=== PATIENT | female | born 1970 | race Caucasian/White ===

== ENCOUNTER 2017-07-06 09:09 | Outpatient (RCR) | payer OTHER, SELFPAY | END 2017-07-14 23:59 | LOC: NS 09:09 | PROVIDERS: Family Provider Family Medicine; PCP Family Medicine; Visit Provider Family Medicine | DX: E66.9 Obesity, unspecified (principal); Z68.31 Body mass index [BMI] 31.0-31.9, adult; Z71.3 Dietary counseling and surveillance | CPT/HCPCS: 97802 ==

== ENCOUNTER → 2017-10-09 07:19 | Outpatient (CLI) | payer OTHER, SELFPAY ==
--- NOTE | 2017-10-09 07:29 | MRI_ITS ---
STUDY: MRI LUMBAR SPINE WITHOUT CONTRAST REASON FOR EXAM: Female, 47 years old. Low back pain radiating to left leg TECHNIQUE: Standardized fat and water weighted pulse sequences were obtained in the sagittal and axial planes. COMPARISON: None FINDINGS: T12-L1: Normal endplates. Normal disc height, hydration and morphology. Normal bilateral facet joints. Normal central canal and bilateral lateral recesses. Normal bilateral intervertebral neural foramina. Normal lumbar lordosis. There is no substantial scoliosis. Normal conus medullaris that terminates at T12-L1 L1-2: Normal endplates. Normal disc height, hydration and morphology. Normal bilateral facet joints. Normal central canal and bilateral lateral recesses. Normal bilateral intervertebral neural foramina. L2-3: Normal endplates. Normal disc height, desiccation and minimal annular bulge. Normal bilateral facet joints. Normal central canal and bilateral lateral recesses. Normal bilateral intervertebral neural foramina. L3-4: Normal endplates. Narrowed disc space with desiccation of the disc and moderate annular bulge in association with small central disc extrusion with inferior migration of disc fragment. There is also left foraminal disc protrusion. Mild facet arthropathy greater on the left. Mild narrowing of the central canal. Mild to moderate right lateral recess and neuroforaminal stenosis with more severe narrowing on the left.. L4-5: Normal endplates. Narrowed disc space with desiccation of the disc and mild annular bulge.. Bilateral facet arthropathy and mild thickening of ligamenta flava greater on the left.. Normal central canal. Mild right lateral recess and neural foraminal encroachment with moderate narrowing on the left L5-S1: Normal endplates. Normal disc height, desiccation and minor bulging of the annulus with moderate central disc protrusion.. Bilateral facet arthropathy. Mild narrowing of the central canal. Normal bilateral lateral recesses. Normal bilateral intervertebral neural foramina. Normal visualized sacral ala. Normal visualized paraspinous soft tissue structures. MRI/Spine Lumbar (Routine) IMPRESSION: Moderate spondylosis. Spinal stenosis at L3-4 and L4-5 greater on the left secondary to disc disease and bony hypertrophy. Other findings as above Electronically Signed: Solo Rodas MD at 17:44 EDT , Service support ,
--- NOTE | 2017-10-09 08:05 | RAD_ITS ---
STUDY: X-RAY - CERVICAL SPINE REASON FOR EXAM: Female, 47 years old. Neck pain TECHNIQUE: 2 view(s) of the cervical spine were obtained. COMPARISON: None FINDINGS: Normal anterior atlantoaxial articulation. Normal odontoid process. Normal cervical lordosis. Normal vertebral bodies and endplates. Normal disc space heights. Normal visualized intervertebral neuroforamina. There is ossification of the nuchal ligament at the level of C4-5.. RAD/Cerv Spine 2 or 3 Views IMPRESSION: No evidence for acute fracture or other significant bony pathology. Electronically Signed: Solo Rodas MD at 0:51 EDT , Service support ,
== END ==
PROVIDERS: Family Provider Family Medicine; PCP Family Medicine; Visit Provider Anesthesiology Pain Medicine
DX: M54.9 Dorsalgia, unspecified (principal); M79.606 Pain in leg, unspecified
CPT/HCPCS: 72040; 72148

== ENCOUNTER → 2017-10-18 16:49 | Outpatient (CLI) | payer OTHER, SELFPAY ==
[2017-10-18 18:26] LABS: Amphetamine Urine VISTA NEGATIVE (<1000 ng/mL); Barbiturate Urine VISTA NEGATIVE (< 200 ng/mL); Benzodiazepine Urine VISTA NEGATIVE (< 200 ng/mL); Cocaine Urine VISTA NEGATIVE (< 300 ng/mL); Ecstacy Urine VISTA NEGATIVE (< 500 ng/mL); Methadone Urine VISTA NEGATIVE (< 300 ng/mL); PCP Urine VISTA NEGATIVE (< 25 ng/mL); THC Urine VISTA NEGATIVE (< 50 ng/mL); Vista UDS pH Range 6
== END ==
PROVIDERS: Family Provider Family Medicine; PCP Family Medicine; Visit Provider Anesthesiology Pain Medicine
DX: F11.20 Opioid dependence, uncomplicated (principal)
CPT/HCPCS: 80307

== ENCOUNTER → 2018-01-13 10:13 | Outpatient (CLI) | payer OTHER, SELFPAY ==
--- NOTE | 2018-01-13 10:16 | BI_ITS ---
MAMMOGRAPHY - BILATERAL SCREENING REASON FOR EXAM: Female, 47 years old. Routine annual screening examination. PERTINENT HISTORY: Non-contributory. History of bilateral breast implants. TECHNIQUE: Digital bilateral breast johnathan (3D mammographic acquisition) in the CC and MLO projections. 2-D mediolateral oblique (MLO) and craniocaudad (CC) views of both breasts were obtained. CAD: Full Field Digital Mammography with Computer Added Detection was performed. COMPARISON: Comparison is made with prior study dated June 01, 2016 and December 02, 2010. FINDINGS: Breast Composition: There are scattered areas of fibroglandular density. There are no dominant masses or suspicious calcifications. Stable appearance of the bilateral breast implants. No other significant abnormalities are identified. There has been no significant change since the prior study. BI/SCREENING MAMM (CAD), BILAT IMPRESSION: Stable bilateral screening mammogram. Yearly follow-up mammogram recommended. (A) ASSESSMENT CATEGORY: BIRADS Category 2: Benign. A letter regarding these results will be sent to the patient by the facility within 30 days. Approximately 10% of breast cancers are not detected by mammography. A normal mammogram should not delay biopsy of a clinically suspicious abnormality. [id number] Electronically Signed: Walt Gonsales MD at 14:06 EDT Tel [phone], Service support ,
== END ==
PROVIDERS: Family Provider Family Medicine; PCP Family Medicine; Visit Provider Obstetrics & Gynecology Gynecology
DX: Z12.31 Encounter for screening mammogram for malignant neoplasm of breast (principal)
CPT/HCPCS: 77063; 77067

== ENCOUNTER 2018-03-11 09:56 | Emergency (ER) | payer OTHER, SELFPAY ==
[2018-03-11 09:56] VITALS: BP 163/82; PULSE 60; RESP 18; TEMP 36.6; O2SAT 99; BMI 28.7
--- NOTE | 2018-03-11 10:12 | CT_ITS ---
STUDY: CT ABDOMEN AND PELVIS WITHOUT CONTRAST REASON FOR EXAM: Female, 47 years old. Left lower quadrant pain. Left flank pain. History of gastric bypass RADIATION DOSAGE (If Supplied By Facility): CTDIvol = ( 16.49 ) mGy, DLP = ( 930.86 ) mGycm TECHNIQUE: Transaxial images were obtained from the dome of the diaphragm to the symphysis pubis without oral contrast, and without intravenous contrast. Sagittal and coronal images were reconstructed. Individualized dose optimization techniques were used for this CT. COMPARISON: None. FINDINGS: The visualized lung bases are unremarkable. The visualized portions of the heart are within normal limits. There are bilateral breast implants. Normal liver. There are surgical clips in the gallbladder fossa consistent with a prior cholecystectomy. Normal spleen. Normal pancreas. Normal bilateral adrenal glands. Normal right kidney. Normal left kidney. No stones or hydronephrosis. Postoperative changes of the stomach and small intestine consistent with gastric bypass. Mild distention of small bowel loops adjacent to the postoperative change. Normal colon. The appendix is visualized and appears normal. Normal abdominal aorta. Normal inferior vena cava. Normal retroperitoneum. Normal urinary bladder. Normal visualized uterus. There is a small amount of free fluid in the pelvis. There are postoperative changes of the abdominal wall. There is dextroscoliosis with degenerative change of the spine. CT/Abdomen/Pelvis without Cont IMPRESSION: There is postoperative change including gastric bypass. Distention of small bowel loops adjacent to postoperative change with ileus versus partial obstruction. No stones or hydronephrosis. Electronically Signed: Uriel Amezquita MD at 10:57 EDT , Service support ,
--- NOTE | 2018-03-11 10:13 | ED.DCSUM_ITS ---
- ER Visit Summary Date of Service: 03/11/18 Chief Complaint: Left flank pain History of Present Illness: The patient is a 47 F with no primary care physician. She reports she has left flank pain that began 3 days ago. Pain came on suddenly and has been constant since that time. Is a sharp pain that radiates around the left side of her abdomen. Is 9 out of 10 at worst and 7-10 currently. Is worsened by nothing. She taken Aleve and ibuprofen without relief. She reports is been nausea and vomited 8-9 times. No blood or emesis. She is having 3-4 episodes of diarrhea per day. No blood in her stools or black tarry stools. Patient reports that she has frequent urination with small volumes. No hematuria.. Patient denies sick contacts. Has not been camping out of the country. No possible bad food exposure. Does not drink well water. No recent antibiotic use. Patient has a history of gastric bypass in 2001. No personal or family history of kidney stones. Physical Examination: Vitals: Stable. Afebrile. General: Well-nourished and well-developed. Head: Normocephalic atraumatic. Neck: Supple, no lymphadenopathy. No JVD. Nontender. Cardiovascular: Regular rate and rhythm. No murmurs. Respiratory: No respiratory distress. Clear to auscultation bilaterally. Abdominal: Soft, mild tenderness palpation in the left upper and left lower quadrants, nondistended, normal bowel sounds. No guarding, rebound, or peritoneal signs. Back: Mild left CVA tenderness. Extremities: Nontender, no edema. Skin: Normal color, no rash. Neurologic: Alert and oriented ?3. Cranial nerves II through XII are intact. Normal strength and sensation. Psych: Normal affect. Test Results: CBC is remarkable for platelets of 142, segmented neutrophils of 79, and lymphocytes of 13. Chem-7 is more for glucose 111. UA is remarkable for 10-25 white blood cells, leukocytes, ketones. There is 1+ bacteria. However, there are 5-10 epithelial cells. Clinical Impression(s) from Imaging Studies Abdomen/Pelvis CT 03/11/18 10:12 IMPRESSION: There is postoperative change including gastric bypass. Distention of small bowel loops adjacent to postoperative change with ileus versus partial obstruction. No stones or hydronephrosis. Electronically Signed: Uriel Amezquita MD at 10:57 EDT , Service support , Emergency Department Course and Treatment: Patient had an IV placed. She is given a liter normal saline. She was given morphine and Zofran IV. She is resting comfortably. I had a prolonged discussion the patient about her urinalysis. She is having frequency with small volumes. She was treated with Cipro here. Treatment Plan: Patient will be discharged with Cipro, 12 [place], and Zofran. Instructed to follow-up with Dr. Ruth, who is next illness for no doc, in 3-5 days if not improving. I also discussed the CT results with her and instructed her to follow-up with Dr. Dwyer, her surgeon at [facility]. Return to the emergency department for any worsening symptoms. Disposition: To home in improved and stable condition. Impression: 1. Left flank pain, uncertain cause. This note was generated with [employer] dictation software. It may contain incorrect words, spelling, and punctuation that were not noted in review of the chart prior to signing ED Disposition - Plan for ED Patient: Chief Complaint: Flank Pain Instructions: ED Flank Pain Uncertain Cause Prescriptions: Ondansetron [Zofran Odt] 4 mg PO Q8H PRN PRN #10 tablet PRN Reason: Nausea Hydrocodone/Acetaminophen [[place] 5-325 Tablet] 1 - 2 each PO 4X/DAY PRN PRN 3 Days #12 tablet PRN Reason: Pain Ciprofloxacin [Cipro] 500 mg PO BID #6 tablet Referrals: Xiomara Ruth MD [STAFF PHYSICIAN] - 3-5 Days if not improving
[2018-03-11] MEDS: 0.9% Normal Saline 1,000 ML 1000 ML IV (10:30)
[2018-03-11] MEDS: Ondansetron 4 MG/2 ML Vial IV (10:31)
[2018-03-11] MEDS: Morphine 4 MG/ML Syringe IV (10:31)
[2018-03-11 10:33] LABS: Absolute Lymphocyte Count 0.71 X10^3/ul (0.83-4.51); Absolute Neutrophil Count 4.4 X10^3/uL (2.0-7.7); Basophil# 0.02 X10^3/uL; Basophil% 0.4 % (0-1); Eosinophil# 0.01 X10^3/uL; Eosinophils% 0.2 % (0-5); Hematocrit 39.5 % (37-47); Hemoglobin 13.4 g/dl (12.0-15.0); Lymphocyte # 0.71 X10^3/ul (4.0); Lymphocyte % 12.9 % (19-41); Mean Corp Hgb Conc 33.9 g/gl (32-36); Mean Corpuscular Hgb 33.4 pg (27.0-32.0); Mean Corpuscular Volume 98.5 fL (81-99); Mean Platelet Vol. 10.2 fl (6.2-12.0); Monocyte# 0.38 X10^3/uL; Monocyte% 6.9 % (0-10); Neutrophil # 4.39 X10^3/uL (2.7-7.7); Neutrophil % 79.4 % (47-70); POSITIVE COUNT NO; POSITIVE DIFFERENTIAL NO; POSITIVE MORPHOLOGY NO; Platelet Count 142 K/mm3 (150-450); RBC Distribution Width CV 13.3 % (11.6-14.6); RBC Distribution Width SD 46.8 fl (35.1-43.9); Red Blood Count 4.01 M/mm3 (4.2-5.4); White Blood Count 5.5 K/mm3 (4.4-11.0)
[2018-03-11 10:38] LABS: Mucous, Urine 0 SEEN /hpf (<or=2+); Red Blood Cells-Urine 0 SEEN /hpf (0-5)
[2018-03-11 10:40] LABS: Color, Urine Yellow (Yellow); Glucose, Dipstick Normal (Normal); Ketone-Dipstick 50 mg/dl (Negative); Leukocyte Esterase-Dipstick 100 /ul (Negative); Nitrite-Dipstick Negative (Negative); Occult Blood-Urine Negative /ul (Negative); Protein-Dipstick 15 mg/dl (Negative); Urine Bilirubin Dipstick Negative (Negative); Urine Clarity Sl. Cloudy (Clear); Urine Urobilinogen 4 mg/dl (Normal); Urine pH 6.5 (5.0 - 8.0)
[2018-03-11 10:43] LABS: Anion Gap 8 (5-15); BUN 7 mg/dL (7-18); BUN/Creat Ratio 7.2 RATIO (10-20); Calcium,Total 8.8 mg/dL (8.5-10.1); Chloride 105 mmol/L (98-107); Creatinine, Serum 0.98 mg/dL (0.55-1.02); EST Glomerular Filtration Rate 65 mL/min (>60); Est Glom Filt Rate - Afr Amer 78 mL/min (>60); Estimated Creatinine Clearance 75.92 ml/min; Glucose 111 mg/dL (74-106); Potassium 3.7 mmol/L (3.5-5.1); Sodium Level 138 mmol/L (136-145)
[2018-03-11 10:55] LABS: Bacteria 1+ /hpf (None Seen); Squamous Epithelial Cells - UA 5-10 SEEN /hpf (5-10); White Blood Cells 10-25 SEEN /hpf (0-5)
[2018-03-11 11:22] VITALS: BP 163/88; PULSE 68; RESP 18; O2SAT 98
[2018-03-11] MEDS: Ciprofloxacin 500 MG Tablet PO (11:31)
== END 2018-03-11 11:41 | disposition home or self-care (01) ==
LOC: ED 10:18
PROVIDERS: Emergency Provider Emergency Medicine
DX: R10.9 Unspecified abdominal pain (principal); R51 Headache; R05 Cough; R19.7 Diarrhea, unspecified; R11.2 Nausea with vomiting, unspecified; Z98.84 Bariatric surgery status
CPT/HCPCS: 74176; 80048; 81001; 85025; 96361; 96374; 96375; 99283; J7030; A4216; J2405

== ENCOUNTER 2018-08-02 12:45 | Emergency (ER) | payer OTHER, SELFPAY ==
[2018-08-02 12:46] VITALS: BP 177/109; PULSE 104; RESP 18; TEMP 36.3; O2SAT 97; BMI 32.1
[2018-08-02] MEDS: 0.9% Normal Saline 1,000 ML 1000 ML IV (13:52)
[2018-08-02] MEDS: Ondansetron 4 MG/2 ML Vial IV (13:52)
[2018-08-02 13:55] LABS: Absolute Neutrophil Count 9.3 X10^3/uL (2.0-7.7); Basophil# 0.02 X10^3/uL; Basophil% 0.2 % (0-1); Hematocrit 41.3 % (37-47); Lymphocyte % 8.3 % (19-41); Mean Corp Hgb Conc 33.9 g/gl (32-36); Mean Corpuscular Hgb 34.3 pg (27.0-32.0); Mean Corpuscular Volume 101.2 fL (81-99); Mean Platelet Vol. 9.8 fl (6.2-12.0); Monocyte# 0.65 X10^3/uL; Neutrophil # 9.26 X10^3/uL (2.7-7.7); Neutrophil % 85.4 % (47-70); Platelet Count 190 K/mm3 (150-450); RBC Distribution Width CV 13.5 % (11.6-14.6); RBC Distribution Width SD 49.2 fl (35.1-43.9); Red Blood Count 4.08 M/mm3 (4.2-5.4); White Blood Count 10.8 K/mm3 (4.4-11.0)
[2018-08-02 13:58] LABS: POSITIVE COUNT NO; POSITIVE DIFFERENTIAL NO; POSITIVE MORPHOLOGY NO
[2018-08-02 14:09] LABS: ALB/GLOB Ratio 0.9 RATIO (0.9-2.4); AST(SGOT) 20 U/L (15-37); Alanine Aminotransfer ALT/SGPT 9 U/L (13-56); Albumin, Serum 3.5 g/dL (3.2-5.0); Alkaline Phosphatase 116 U/L (45-117); Anion Gap 13 (5-15); BUN 5 mg/dL (7-18); BUN/Creat Ratio 5.5 RATIO (10-20); Calcium,Total 8.2 mg/dL (8.5-10.1); Chloride 104 mmol/L (98-107); EST Glomerular Filtration Rate 70 mL/min (>60); Est Glom Filt Rate - Afr Amer 85 mL/min (>60); Estimated Creatinine Clearance 81.77 ml/min; Globulin 3.7 g/dL (2.2-4.2); Glucose 86 mg/dL (74-106); Potassium 3.4 mmol/L (3.5-5.1); Protein, Total 7.2 g/dL (6.4-8.2); Sodium Level 139 mmol/L (136-145)
[2018-08-02] MEDS: LORazepam 2 MG/ML Syringe 0.5 MG IV (14:16)
[2018-08-02 15:46] VITALS: BP 158/92; O2SAT 99
[2018-08-02] MEDS: LORazepam 0.5 MG Tablet PO (15:51)
--- NOTE | 2018-08-02 16:23 | ED.DCSUM_ITS ---
- ER Visit Summary Date of Service: 08/02/18 Chief Complaint: Abdominal pain predominantly right upper quadrant with nausea, vomiting diarrhea. History of Present Illness: The patient is a 48 F She status post cholecystectomy within the last 10 years. She denies food intolerance. She denies history of pancreatitis. She denies cough, shortness of breath or difficulty breathing. Denies pleuritic pain. She has no history of PE or DVT. She denies leg pain, swelling discoloration. She has vomited a few times. She is concerned because her stool is dark and oily. There is no history of Pseudomonas in her colitis. No risk factors for infectious diarrhea. She has not eaten anything that tasted unusual and no other 1 in the household is ill. She does complain of thirst and dry mouth. She also reports slight cough. Pain is worse with cough, sneezing and movement. There is no history of trauma. She has not noted any rash or lesions. Physical Examination: Vital signs noted and blood pressure is slightly low at 177/109. Heart rate is 104. Head is atraumatic normocephalic. Pupils are equal round reactive. Extraocular muscles are intact. TMs are pearly white with landmarks noted. Nares patent with no drainage. Posterior pharynx without erythema or exudate. Uvula is midline. There is no dysphonia or dysphasia. Trachea is midline. There is no stridor with auscultation of the neck. Tongue and mucosa are dry. Heart is rapid and regular without murmur, gallop or rub. S1 and S2 are normal. Lungs are clear to auscultation with good movement of air bilaterally. Abdomen is remarkable for mild diffuse tenderness. Most discomfort is in the anterior to posterior axillary line near the right costal margin. There is no hepatospleno megaly. Bowel sounds are increased. There is no evidence of umbilical or inguinal hernia. Rectal exam is remarkable for areas of excoriation. There is prominent anal veins but no discrete obvious hemorrhoid and there is no palpable mass. Patient has not had any diarrhea during her stay here. Rectal exam reveals brown watery material. Because of the areas of excoriation this was not tested for blood. Neuro exam is nonfocal Test Results: CBC is unremarkable. Basic metabolic panel is unremarkable. Potassium is 3.4. ALT, AST alk phos and bilirubin are normal. Emergency Department Course and Treatment: Patient was treated with IV fluids, I V Ativan. Her anxiety improved. She is given p.o. Ativan. Treatment Plan: Imodium for diarrhea. She was referred to Dr. Andi Sloan since she does not have a primary care physician in the area. Disposition: Discharge to home with spouse in stable condition Impression: 1. Abdominal pain with nausea, vomiting diarrhea 2. Anxiety unknown cause This note was generated with [employer] dictation software. It may contain incorrect words, spelling, and punctuation that were not noted in review of the chart prior to signing ED Disposition - Plan for ED Patient: Disposition: Home or Assisted Living Instructions: ED Vomiting Diarrhea Nonspecific Ad Referrals: Care Physician,No Primary [Primary Care Provider] - Andi Sloan MD [STAFF PHYSICIAN] - 5-7 Days
== END 2018-08-02 16:33 | disposition home or self-care (01) ==
PROVIDERS: Emergency Provider Emergency Medicine
DX: R11.2 Nausea with vomiting, unspecified (principal); R10.9 Unspecified abdominal pain; R19.7 Diarrhea, unspecified; F41.9 Anxiety disorder, unspecified; Z90.49 Acquired absence of other specified parts of digestive tract
CPT/HCPCS: 80053; 85025; 96361; 96374; 96375; 99282; J7030; J2405

== ENCOUNTER 2018-08-09 09:21 | Observation (INO) | payer OTHER, SELFPAY ==
[2018-08-09 09:22] VITALS: BP 161/95; PULSE 85; RESP 18; TEMP 36.6; O2SAT 100; BMI 30.9
--- NOTE | 2018-08-09 09:49 | CT_ITS ---
STUDY: CT ABDOMEN AND PELVIS WITH CONTRAST REASON FOR EXAM: Female, 48 years old. Abdominal pain. RADIATION DOSAGE (If Supplied By Facility): CTDIvol = ( 16.10 ) mGy, DLP = ( 1149.58 ) mGycm TECHNIQUE: Transaxial images were obtained from the dome of the diaphragm to the symphysis pubis without oral contrast. Isovue 300 100ML IV was administered. Sagittal and coronal images were reconstructed. Individualized dose optimization techniques were used for this CT. COMPARISON: Comparison is made with prior study March 11, 2018. FINDINGS: There is evidence of bilateral breast implants. The visualized lung bases are unremarkable. The visualized portions of the heart are within normal limits. Normal liver. There are surgical clips in the gallbladder fossa consistent with a prior cholecystectomy. Normal spleen. Normal pancreas. Normal bilateral adrenal glands. Normal right kidney. Normal left kidney. The patient is status post partial gastrectomy and anastomosis for gastric bypass surgery. Normal small intestine. There are scattered colonic diverticula consistent with diverticulosis. The appendix is visualized and appears normal. Normal abdominal aorta. Normal inferior vena cava. Normal retroperitoneum. Normal urinary bladder. A 2.1 cm follicle is seen in the left ovary. There is evidence of prior anterior abdominal wall surgery. There are diffuse degenerative changes of the visualized lumbar spine. CT/Abdomen/Pelvis W IV Cont ONLY IMPRESSION: Status post gastric bypass surgery. Small follicle in the left ovary. Postoperative anterior abdominal wall changes. Electronically Signed: Walt Gonsales, at 11:23 EST , Service support ,
[2018-08-09 10:38] LABS: Absolute Lymphocyte Count 0.86 X10^3/ul (0.83-4.51); Absolute Neutrophil Count 2.3 X10^3/uL (2.0-7.7); Basophil# 0.01 X10^3/uL; Basophil% 0.3 % (0-1); Eosinophil# 0.01 X10^3/uL; Eosinophils% 0.3 % (0-5); Hemoglobin 12.9 g/dl (12.0-15.0); Lymphocyte # 0.86 X10^3/ul (4.0); Lymphocyte % 24.7 % (19-41); Mean Corp Hgb Conc 33.1 g/gl (32-36); Mean Corpuscular Hgb 34.4 pg (27.0-32.0); Mean Platelet Vol. 10.3 fl (6.2-12.0); Monocyte# 0.34 X10^3/uL; Monocyte% 9.8 % (0-10); Neutrophil # 2.25 X10^3/uL (2.7-7.7); Neutrophil % 64.6 % (47-70); Platelet Count 111 K/mm3 (150-450); RBC Distribution Width CV 12.8 % (11.6-14.6); RBC Distribution Width SD 47.2 fl (35.1-43.9); Red Blood Count 3.75 M/mm3 (4.2-5.4); White Blood Count 3.5 K/mm3 (4.4-11.0)
[2018-08-09] MEDS: 0.9% Normal Saline 1,000 ML 1000 ML IV (10:39)
[2018-08-09 10:40] LABS: POSITIVE COUNT NO; POSITIVE DIFFERENTIAL NO; POSITIVE MORPHOLOGY NO
[2018-08-09] MEDS: Ketorolac 30 MG/ML Syringe IV (10:40)
[2018-08-09 10:59] LABS: ALB/GLOB Ratio 0.9 RATIO (0.9-2.4); AST(SGOT) 14 U/L (15-37); Alanine Aminotransfer ALT/SGPT 9 U/L (13-56); Alkaline Phosphatase 85 U/L (45-117); Anion Gap 9 (5-15); BUN 9 mg/dL (7-18); BUN/Creat Ratio 8.6 RATIO (10-20); Calcium,Total 8.4 mg/dL (8.5-10.1); Chloride 105 mmol/L (98-107); Creatinine, Serum 1.05 mg/dL (0.55-1.02); EST Glomerular Filtration Rate 59 mL/min (>60); Est Glom Filt Rate - Afr Amer 72 mL/min (>60); Estimated Creatinine Clearance 70.09 ml/min; Globulin 3.5 g/dL (2.2-4.2); Glucose 102 mg/dL (74-106); Lipase 955 U/L (73-393); Potassium 4.1 mmol/L (3.5-5.1); Protein, Total 6.5 g/dL (6.4-8.2); Sodium Level 141 mmol/L (136-145)
[2018-08-09] MEDS: Morphine 4 MG/ML Syringe IV (11:31)
--- NOTE | 2018-08-09 13:09 | ED.DCSUM_ITS ---
- ER Visit Summary Date of Service: 08/09/18 Chief Complaint: Abdominal pain History of Present Illness: The patient is a 48 F who states that last Wednesday she was seen in the emergency department with vomiting diarrhea. She saw her primary care physician on Wednesday and had blood work done. Lipase returned at 366 because she is still having abdominal pain was sent to the emergency room today. She last vomited about 2 days ago. Her diarrhea is better but it is still loose. She describes the pain as sharp stabbing on the sides. She has had gastric bypass 2001 and cholecystectomy in 2007. Physical Examination: Afebrile vital signs are stable Gen: Well-nourished well-developed Head: Normocephalic atraumatic Eyes: Perrl EOMI ENT: TMs clear no rhinorrhea moist mucous membranes Neck: Supple no lymphadenopathy no JVD nontender CVS: Regular rate rhythm no murmurs normal S1-S2 Respiratory: No distress clear to auscultation bilaterally chest nontender Abdomen: Soft patient has reproducible tenderness to palpation over the oblique musculature in the lower ribs laterally. Nondistended normal bowel sounds no masses Back: Nontender Extremity: Nontender no edema Skin: Normal color no rash Neuro: alert orientated ?3 CN II-XII intact normal strength sensation reflexes gait cerebellar Psych: Normal affect normal mood Test Results: Lipase is elevated here at 955. White count 3.5. Creatinine 1.05. CT of the abdomen pelvis does not show any peripancreatic stranding mass or pseudocyst. Emergency Department Course and Treatment: Patient received IV fluids Toradol and later morphine. I suspect this is all viral in nature. I am concerned about her persistently elevated lipase over the past several days. Her abdominal pain seems to be more musculoskeletal most likely from vomiting. Patient I think would benefit from bowel rest and IV fluids. We can recheck the lipase in the morning. Impression: 1. Gastroenteritis 2. Pancreatitis 3. Abdominal wall pain This note was generated with [employer] dictation software. It may contain incorrect words, spelling, and punctuation that were not noted in review of the chart prior to signing ED Disposition - Plan for ED Patient: Disposition: [facility]
--- NOTE | 2018-08-09 13:14 | NURSING ---
MED SURG PANCREATITIS
--- NOTE | 2018-08-09 13:18 | HP.PCM_ITS ---
Problem List (1) Acute pancreatitis Status: Acute (2) Gastric bypass surgery Status: Chronic (3) History of cholecystectomy Status: Chronic History of Present Illness Date of Admission: 08/09/18 Chief Complaint: Abdominal pain for about 1 week The patient is a 48 year old F with history of gastric bypass surgery in 2001 and cholecystectomy in 2007 came to ED with abdominal pain for 1 week. Earlier patient came to ER on 08/02/18 for right upper quadrant abdominal pain with nausea vomiting and diarrhea was sent home. Initially abdominal pain was intermittent and now it is constant for last 1 day and does not change with position. Patient also had diarrhea, loose bowel movement for 1 week and which is getting more semisolid now. Denies vomiting. Had subjective fever with chills about 2-3 days ago but denies flulike symptoms. Denies lower urinary tract symptoms including frequency, urgency or burning micturition. Denies GI bleed. In ED, lipase is 955. WBC count 3.5 thousand, platelet count 111,000; decreased from 10.8 thousand and 1 90,000 from 08/[address] was done and it mainly shows postoperative surgical changes otherwise no new findings. Pancreas reported normal Past Medical History Past Medical History (Chronic Problems): Chronic Problems Gastric bypass surgery (Chronic) History of cholecystectomy (Chronic) Allergies diazoxide Allergy (Verified 08/09/18 09:24) Hives Home Medications: Ambulatory Orders Medication Instructions Recorded Norethindrone-E.estradiol-Iron 1 each PO DAILY 03/11/18 [Mibelas 24 Fe Chewable Tablet] Multivitamin [Multiple Vitamins] 1 each PO DAILY 08/09/18 Smoking Status: Never smoker - *Family History Paternal History Items: No pertinent history - No history of pancreatitis in parents. Review of Systems Constitutional: Reports: Chills, Fever, Weakness HEENT: Denies: Head Aches, Sinus Congestion, Sinus Drainage Cardiovascular: Denies: Chest Pain, Palpitations Respiratory: Denies: Cough, Shortness of breath at rest, Sputum production Gastrointestinal: Reports: Abdominal Pain, Diarrhea. Denies: Nausea, Vomiting Genitourinary: Denies: Dysuria, Frequency, Hematuria, Hesitancy, Incontinence, Urgency Gynecological: Reports: Vaginal bleeding - Post menopausal bleeding for about 1 month. It is intermittent for about 2-3 days. Sent records had menopause 15 years ago. Follows [employer] and is on contraceptive pills Musculoskeletal: Denies: Joint Pain, Joint Tenderness Skin: Denies: Rash, Wounds Neurological: Denies: Balance problems, Focal weakness, Numbness, Tingling Psychiatric: Denies: Anxiety, Depression, Homicidal Ideations, Suicidal Ideations Hematologic/ Lymphatic: Denies: Easy Bruising, Easy Bleeding VTE Information - Inpt Only VTE Present on Admission: No VTE Pharm Prophylaxis ordered?: Yes Patient Problems: Active and Suspected Problems Acute pancreatitis (Acute) - Physical Exam General: Alert, Oriented x3, Cooperative HEENT: Atraumatic, PERRLA, EOMI, Normocephalic Neck: Supple, No JVD, Negative Carotid Bruits Lungs: Clear to auscultation, Normal air movement, No rhonchi, No wheeze, No rales Cardiovascular: Regular rate, Normal S1, Normal S2, No murmurs Abdomen: Bowel Sounds Present, Soft, Non-Distended, Tender - Tenderness present on epigastrium and right upper quadrant. No palpable mass. No guarding/rigidity Extremities: No edema, Capillary Refill Less than 3 Seconds Skin: No rashes, No breakdown Musculoskeletal: No Tenderness to Palpation of Joints or Extremities Neurological: Cranial nerves II-XII grossly intact Psych/Mental Status: Normal Affect, Appropriate Vital Signs Temp Pulse Resp BP Pulse Ox 98 F 85 18 161/95 H 100 08/09/18 09:22 08/09/18 09:22 08/09/18 09:22 08/09/18 09:22 08/09/18 09:22 Oxygen Delivery Method Room Air Weight: 216 lb Body Mass Index (BMI) 30.9 Laboratory Tests Past 24 Hrs 08/09/18 08/09/18 10:30 10:30 WBC 3.5 L RBC 3.75 L Hgb 12.9 Hct 39.0 MCV 104.0 H MCH 34.4 H MCHC 33.1 RDW 12.8 RDW Differential 47.2 H Plt Count 111 L MPV 10.3 Immature Gran % (Auto) 0.300 Neut % (Auto) 64.6 Lymph % (Auto) 24.7 [place] % (Auto) 9.8 Eos % (Auto) 0.3 Baso % (Auto) 0.3 Absolute Neuts (auto) 2.3 Absolute Lymphs (auto) 0.86 Total Counted Not Reportable Sodium 141 Potassium 4.1 Chloride 105 Carbon Dioxide 27.0 Anion Gap 9 BUN 9 Creatinine 1.05 H Estim Creat Clear Calc 70.09 Est GFR (MDRD) Af Amer 72 Est GFR (MDRD) Non-Af 59 L BUN/Creatinine Ratio 8.6 L Glucose 102 Calcium 8.4 L Total Bilirubin 0.50 AST 14 L ALT 9 L Alkaline Phosphatase 85 Total Protein 6.5 Albumin 3.0 L Globulin 3.5 Albumin/Globulin Ratio 0.9 Lipase 955 H Assessment/Plan All Active Problems Acute pancreatitis (Acute) The patient is a 48 year old F with history of gastric bypass surgery in 2001 and cholecystectomy in 2007 came to ED with abdominal pain for 1 week. Earlier patient came to ER on 08/02/18 for right upper quadrant abdominal pain with nausea vomiting and diarrhea was sent home. Initially abdominal pain was intermittent and now it is constant for last 1 day and does not change with position. Patient also had diarrhea, loose bowel movement for 1 week and which is getting more semisolid now. Denies vomiting. Had subjective fever with chills about 2-3 days ago but denies flulike symptoms. Denies lower urinary tract symptoms including frequency, urgency or burning micturition. Denies GI bleed. In ED, lipase is 955. WBC count 3.5 thousand, platelet count 111,000; decreased from 10.8 thousand and 1 90,000 from 08/[address] was done and it mainly shows postoperative surgical changes otherwise no new findings. Pancreas reported normal. 1. Acute pancreatitis, etiology unclear: Patient thinks he had mild pancreatitis in the past and is spontaneously resolved without seeking medical care. Patient is being admitted on MedSurg floor. IV fluid normal saline. N.p.o. Monitor intake and output and abdominal pain. LFTs are within normal limit. 2. Postmenopausal bleeding on contraceptive pills. Patient follows [employer]. Continue contraceptive pill. Monitor CBC. 3. History of morbid obesity status post gastric bypass surgery and cholecystectomy long time ago: Stable. 4. DVT prophylaxis: On Lovenox 40mg subcu daily. Discontinue if platelet count drops less than 50,000 or hemoglobin less than 8 g%. Clinical Impression(s) from Imaging Studies Abdomen/Pelvis CT 08/09/18 09:49 IMPRESSION: Status post gastric bypass surgery. Small follicle in the left ovary. Postoperative anterior abdominal wall changes. Code Visit Inpatient E&M: 17333 Init Hosp L3
[2018-08-09 13:20] VITALS: BP 157/89; PULSE 69; RESP 16; O2SAT 100
[2018-08-09] MEDS: 0.9% Normal Saline 1,000 ML 250 ML IV (13:20)
--- NOTE | 2018-08-09 14:09 | CASEMGMT ---
RN CM Assessment Introduced role of RN CM to patient and Charbel at bedside. Patient is alert, oriented and able to participate in RN CM Assessment. Care providers, pharmacy, and demographics verified. Presentation: Admitted for Acute Pancreatitis. CC: Abd pain x1 week. Re-admit: No. Was seen in ER on 08/02/18 for Abd pain, N/V/D and Dc'd with referral to Dr Andi Sloan. PCP: Dr Louis Hernandez Specialists: None Preferred Pharmacy: [facility] Insurance: MMO Prescription Benefit: Yes LNOK: Charbel Montano Living Arrangements: Works for [employer]. Lives wuth in a [employer] Home. Independent with ambulation and ADL's. Transportation: Patient drives, Charbel to possible drive on [place] or a friend. DME: None. Preference through [employer]. HHC: Denies past, No preference on Agency. SNF: Denies past, no preference on facility. DC PLAN: Home with , no anticipated needs. Rocael Pickering RNCM
[2018-08-09 14:28] VITALS: BP 151/87; PULSE 67; RESP 16; TEMP 36.7; O2SAT 100; BMI 30.9; BMI 31.0
[2018-08-09] MEDS: Metoclopramide 10 MG/2 ML Vial 5 MG IV (15:10)
[2018-08-09] MEDS: 0.9% Normal Saline 1,000 ML 150 ML IV ×2 (16:26→19:18)
[2018-08-09] MEDS: Morphine 2 MG/ML Syringe IV ×2 (16:26→21:46)
[2018-08-09] MEDS: Enoxaparin 40 MG/0.4 ML Syringe SC (16:26)
[2018-08-09] MEDS: oxyCODONE 5 MG Tablet PO (19:18)
[2018-08-09] MEDS: Ondansetron 4 MG/2 ML Vial IV (19:19)
[2018-08-09 19:44] VITALS: BP 150/91; PULSE 78; RESP 16; TEMP 36.6; O2SAT 99
[2018-08-09] MEDS: Zolpidem Tartrate 5 MG Tablet PO (23:06)
[2018-08-09 23:15] VITALS: BP 127/86; PULSE 68; RESP 16; TEMP 36.6; O2SAT 98
[2018-08-10] MEDS: 0.9% Normal Saline 1,000 ML 150 ML IV ×3 (03:07→17:24)
[2018-08-10] MEDS: Morphine 2 MG/ML Syringe IV ×3 (03:07→22:21)
[2018-08-10 03:10] VITALS: BP 149/99; PULSE 62; RESP 16; TEMP 36.6; O2SAT 99
[2018-08-10 06:11] LABS: Absolute Lymphocyte Count 1.13 X10^3/ul (0.83-4.51); Absolute Neutrophil Count 1.4 X10^3/uL (2.0-7.7); Basophil# 0.01 X10^3/uL; Basophil% 0.3 % (0-1); Eosinophil# 0.04 X10^3/uL; Eosinophils% 1.4 % (0-5); Hematocrit 33.9 % (37-47); Hemoglobin 11.1 g/dl (12.0-15.0); Lymphocyte # 1.13 X10^3/ul (4.0); Lymphocyte % 39.4 % (19-41); Mean Corp Hgb Conc 32.7 g/gl (32-36); Mean Corpuscular Hgb 34.4 pg (27.0-32.0); Mean Platelet Vol. 10.3 fl (6.2-12.0); Monocyte# 0.33 X10^3/uL; Monocyte% 11.5 % (0-10); Neutrophil # 1.36 X10^3/uL (2.7-7.7); Neutrophil % 47.4 % (47-70); Platelet Count 79 K/mm3 (150-450); RBC Distribution Width CV 12.3 % (11.6-14.6); RBC Distribution Width SD 45.3 fl (35.1-43.9); Red Blood Count 3.23 M/mm3 (4.2-5.4); White Blood Count 2.9 K/mm3 (4.4-11.0)
[2018-08-10 06:16] LABS: POSITIVE COUNT NO; POSITIVE DIFFERENTIAL NO; POSITIVE MORPHOLOGY NO
[2018-08-10 06:27] LABS: AST(SGOT) 17 U/L (15-37); Alanine Aminotransfer ALT/SGPT 9 U/L (13-56); Albumin, Serum 2.5 g/dL (3.2-5.0); Alkaline Phosphatase 69 U/L (45-117); Anion Gap 8 (5-15); BUN 6 mg/dL (7-18); BUN/Creat Ratio 7.9 RATIO (10-20); Bilirubin, Direct 0.17 mg/dL (0.00-0.30); Calcium,Total 7.9 mg/dL (8.5-10.1); Chloride 112 mmol/L (98-107); Creatinine, Serum 0.76 mg/dL (0.55-1.02); EST Glomerular Filtration Rate 86 mL/min (>60); Est Glom Filt Rate - Afr Amer 104 mL/min (>60); Estimated Creatinine Clearance 96.83 ml/min; Globulin 2.7 g/dL (2.2-4.2); Glucose 82 mg/dL (74-106); Lipase 422 U/L (73-393); Protein, Total 5.2 g/dL (6.4-8.2); Sodium Level 144 mmol/L (136-145)
[2018-08-10 08:17] VITALS: BP 160/98; PULSE 68; RESP 18; TEMP 36.7; O2SAT 100
[2018-08-10] MEDS: Ondansetron 4 MG/2 ML Vial IV (08:19)
[2018-08-10] MEDS: 0.9% NaCl Peripheral Flush Adult/Peds IV (08:20)
[2018-08-10] MEDS: oxyCODONE 5 MG Tablet PO ×3 (09:54→19:45)
[2018-08-10] MEDS: Enoxaparin 40 MG/0.4 ML Syringe SC (09:58)
--- NOTE | 2018-08-10 10:46 | US_ITS ---
STUDY: ABDOMINAL ULTRASOUND - RIGHT UPPER QUADRANT REASON FOR VISIT: Female, 48 years old. Acute pancreatitis with abnormal labs TECHNIQUE: Ultrasound evaluation of the right upper quadrant was performed with real-time and static avalos-scale imaging. TECHNICAL QUALITY: Adequate. COMPARISON: CT abdomen and pelvis 08/09/2018 and 03/11/2018. FINDINGS: Liver: The liver measures 14.9 cm. There is normal echogenicity of the liver. The bile ducts are within normal limits. There is hepatic color flow. The direction of portal flow is hepatopetal. There is no demonstrated mass lesion. Gallbladder: Cholecystectomy Common Bile Duct (C.B.D.): The common bile duct measures 3.2 mm. Pancreas: Normal size of the head, body and tail of the pancreas. There is normal echogenicity of the pancreas. There is no demonstrated pancreatic mass or cyst. Right Kidney: Normal size of the right kidney. The right kidney measures 9.2 cm. Normal renal cortex. The right cortex measures 1.5 cm. There is no demonstrated renal mass or cyst. There is no right hydronephrosis. US/Abdomen Limited IMPRESSION: No acute sonographic abnormality. No sonographic evidence of acute pancreatitis. On the CT scan performed 08/09/2017 there were no features of acute pancreatitis. The common bile duct was mildly ectatic up to 8 mm. The common bile duct terminated somewhat bluntly just proximal to the sphincter. There is minimal intrahepatic biliary ductal ectasia. There is no apparent pancreatic ductal ectasia. Consider the possibility of occult choledocholithiasis. Follow-up MRCP may be appropriate. Electronically Signed: Kameron Alexis MD at 14:55 EST Tel , Service support ,
--- NOTE | 2018-08-10 11:36 | PCM.PN.HOSP ---
Patient Problems: Active and Suspected Problems Acute pancreatitis (Acute) Subjective: Patient is still having abdominal pain mainly epigastrium and right upper quadrant. No fever or chills. No tachycardia. No tachypnea/hypoxia. Vitals/I&O's: Vital Signs Temp Pulse Resp BP Pulse Ox 98.0 F 68 18 160/98 H 100 08/10/18 08:17 08/10/18 08:17 08/10/18 08:17 08/10/18 08:17 08/10/18 08:17 Oxygen Delivery Method Room Air Weight: 216 lb Body Mass Index (BMI) 30.9 Intake and Output for Last 24 Hours 08/08/18 08/09/18 08/10/18 23:59 23:59 23:59 Intake Total 1358 / 1358 923 / 923 Balance 1358 / 1358 923 / 923 General: Alert, Oriented x3, Cooperative HEENT: Atraumatic, PERRLA, EOMI, Normocephalic Neck: Supple, No JVD, Negative Carotid Bruits Lungs: Clear to auscultation, Normal air movement, No rhonchi, No wheeze, No rales Cardiovascular: Regular rate, Regular Rhythm, Normal S1, Normal S2, No murmurs Abdomen: Bowel Sounds Present, Soft, Tender - Tenderness present at epigastrium and right upper quadrant. No hepatomegaly. No palpable mass. Extremities: No edema, Capillary Refill Less than 3 Seconds Skin: No rashes, No breakdown Musculoskeletal: No Tenderness to Palpation of Joints or Extremities Neurological: Cranial nerves II-XII grossly intact Psych/Mental Status: Normal Affect, Appropriate Laboratory Results 08/10/18 05:40: WBC 2.9 L, RBC 3.23 L, Hgb 11.1 L, Hct 33.9 L, MCV 105.0 H, MCH 34.4 H, MCHC 32.7, RDW 12.3, RDW Differential 45.3 H, Plt Count 79 L, MPV 10.3, Immature Gran % (Auto) 0.000, Neut % (Auto) 47.4, Lymph % (Auto) 39.4, [place] % (Auto) 11.5 H, Eos % (Auto) 1.4, Baso % (Auto) 0.3, Absolute Neuts (auto) 1.4 L, Absolute Lymphs (auto) 1.13, Total Counted Not Reportable 08/10/18 05:40: Sodium 144, Potassium 4.0, Chloride 112 H, Carbon Dioxide 24.0, Anion Gap 8, BUN 6 L, Creatinine 0.76, Estim Creat Clear Calc 96.83, Est GFR (MDRD) Af Amer 104, Est GFR (MDRD) Non-Af 86, BUN/Creatinine Ratio 7.9 L, Glucose 82, Calcium 7.9 L, Total Bilirubin 0.40, Direct Bilirubin 0.17, AST 17, ALT 9 L, Alkaline Phosphatase 69, Total Protein 5.2 L, Albumin 2.5 L, Globulin 2.7, Lipase 422 H Current Medications Acetaminophen (Tylenol) 650 mg PO Q6H PRN PRN PRN Reason: Mild Pain (scale 0-3)/T>100.7 Bisacodyl (Dulcolax) 10 mg RECTAL DAILY PRN PRN PRN Reason: Constipation Docusate Sodium (Colace) 200 mg PO BID PRN PRN PRN Reason: Constipation Enoxaparin Sodium (Lovenox) 40 mg SC DAILY [facility] Last Admin: 08/10/18 09:58 Dose: 40 mg Sodium Chloride () 1,000 mls @ 150 mls/hr IV .Q6H40M [facility] Last Admin: 08/10/18 09:55 Dose: 150 mls/hr Metoclopramide HCl (Reglan) 5 mg IV Q6H PRN PRN Reason: NAUSEA/VOMITING Last Admin: 08/09/18 15:10 Dose: 5 mg Morphine Sulfate () 2 mg IV Q3H PRN PRN PRN Reason: Severe Pain (pain scale 6-10) Last Admin: 08/10/18 08:19 Dose: 2 mg Non-Formulary Medication (Norethindrone-E.Estradiol-Iron [Mibelas 24 Fe Chewable Tablet]) 1 each PO DAILY [facility] Ondansetron HCl (Zofran) 4 mg IV Q6H PRN PRN PRN Reason: NAUSEA Last Admin: 08/10/18 08:19 Dose: 4 mg Oxycodone HCl (Oxyir) 5 mg PO Q4H PRN PRN PRN Reason: Moderate Pain (pain scale 4-5) Last Admin: 08/10/18 09:54 Dose: 5 mg Sodium Chloride () 5 - 15 ml IV UD PRN PRN Reason: SALINE FLUSH Last Admin: 08/10/18 08:20 Dose: 10 ml Zolpidem Tartrate (Ambien (Generic)) 5 mg PO QHS PRN PRN PRN Reason: INSOMNIA Last Admin: 08/09/18 23:06 Dose: 5 mg Medical Necessity - Tobacco Use Smoking Status: Never smoker Tobacco Use: Non-smoker, Secondhand Assessment/Plan All Active Problems Acute pancreatitis (Acute) The patient is a 48 year old F with history of gastric bypass surgery in 2001 and cholecystectomy in 2007 came to ED with abdominal pain for 1 week. Earlier patient came to ER on 08/02/18 for right upper quadrant abdominal pain with nausea vomiting and diarrhea was sent home. Initially abdominal pain was intermittent and now it is constant for last 1 day and does not change with position. Patient also had diarrhea, loose bowel movement for 1 week and which is getting more semisolid now. Denies vomiting. Had subjective fever with chills about 2-3 days ago but denies flulike symptoms. Denies lower urinary tract symptoms including frequency, urgency or burning micturition. Denies GI bleed. In ED, lipase is 955. WBC count 3.5 thousand, platelet count 111,000; decreased from 10.8 thousand and 1 90,000 from 08/[address] was done and it mainly shows postoperative surgical changes otherwise no new findings. Pancreas reported normal. 1. Acute pancreatitis, etiology unclear: Patient thinks he had mild pancreatitis in the past and is spontaneously resolved without seeking medical care. [facility] IV fluid normal saline. Right upper quadrant sonogram ordered. Serum lipase improved. LFT within normal limit. Monitor intake and output and abdominal pain. Start clear liquid after ultrasound. 2. Postmenopausal bleeding on contraceptive pills. Patient follows [employer]. Continue contraceptive pill. Monitor CBC. 3. History of morbid obesity status post gastric bypass surgery and cholecystectomy long time ago: Stable. 4. DVT prophylaxis: On Lovenox 40mg subcu daily. Discontinue if platelet count drops less than 50,000 or hemoglobin less than 8 g%. Clinical Impression(s) from Imaging Studies Abdomen/Pelvis CT 08/09/18 09:49 IMPRESSION: Status post gastric bypass surgery. Small follicle in the left ovary. Postoperative anterior abdominal wall changes. Laboratory Results 08/10/18 05:40: WBC 2.9 L, RBC 3.23 L, Hgb 11.1 L, Hct 33.9 L, MCV 105.0 H, MCH 34.4 H, MCHC 32.7, RDW 12.3, RDW Differential 45.3 H, Plt Count 79 L, MPV 10.3, Immature Gran % (Auto) 0.000, Neut % (Auto) 47.4, Lymph % (Auto) 39.4, [place] % (Auto) 11.5 H, Eos % (Auto) 1.4, Baso % (Auto) 0.3, Absolute Neuts (auto) 1.4 L, Absolute Lymphs (auto) 1.13, Total Counted Not Reportable 08/10/18 05:40: Sodium 144, Potassium 4.0, Chloride 112 H, Carbon Dioxide 24.0, Anion Gap 8, BUN 6 L, Creatinine 0.76, Estim Creat Clear Calc 96.83, Est GFR (MDRD) Af Amer 104, Est GFR (MDRD) Non-Af 86, BUN/Creatinine Ratio 7.9 L, Glucose 82, Calcium 7.9 L, Total Bilirubin 0.40, Direct Bilirubin 0.17, AST 17, ALT 9 L, Alkaline Phosphatase 69, Total Protein 5.2 L, Albumin 2.5 L, Globulin 2.7, Lipase 422 H Code Visit Inpatient E&M: 19992 Subs Hosp L2
--- NOTE | 2018-08-10 11:39 | PN_ITS ---
Patient Problems: Active and Suspected Problems Acute pancreatitis (Acute) Subjective: Patient is still having abdominal pain mainly epigastrium and right upper quadrant. No fever or chills. No tachycardia. No tachypnea/hypoxia. Vitals/I&O's: Vital Signs Temp Pulse Resp BP Pulse Ox 98.0 F 68 18 160/98 H 100 08/10/18 08:17 08/10/18 08:17 08/10/18 08:17 08/10/18 08:17 08/10/18 08:17 Oxygen Delivery Method Room Air Weight: 216 lb Body Mass Index (BMI) 30.9 Intake and Output for Last 24 Hours 08/08/18 08/09/18 08/10/18 23:59 23:59 23:59 Intake Total 1358 / 1358 923 / 923 Balance 1358 / 1358 923 / 923 General: Alert, Oriented x3, Cooperative HEENT: Atraumatic, PERRLA, EOMI, Normocephalic Neck: Supple, No JVD, Negative Carotid Bruits Lungs: Clear to auscultation, Normal air movement, No rhonchi, No wheeze, No rales Cardiovascular: Regular rate, Regular Rhythm, Normal S1, Normal S2, No murmurs Abdomen: Bowel Sounds Present, Soft, Tender - Tenderness present at epigastrium and right upper quadrant. No hepatomegaly. No palpable mass. Extremities: No edema, Capillary Refill Less than 3 Seconds Skin: No rashes, No breakdown Musculoskeletal: No Tenderness to Palpation of Joints or Extremities Neurological: Cranial nerves II-XII grossly intact Psych/Mental Status: Normal Affect, Appropriate Laboratory Results 08/10/18 05:40: WBC 2.9 L, RBC 3.23 L, Hgb 11.1 L, Hct 33.9 L, MCV 105.0 H, MCH 34.4 H, MCHC 32.7, RDW 12.3, RDW Differential 45.3 H, Plt Count 79 L, MPV 10.3, Immature Gran % (Auto) 0.000, Neut % (Auto) 47.4, Lymph % (Auto) 39.4, [place] % (Auto) 11.5 H, Eos % (Auto) 1.4, Baso % (Auto) 0.3, Absolute Neuts (auto) 1.4 L, Absolute Lymphs (auto) 1.13, Total Counted Not Reportable 08/10/18 05:40: Sodium 144, Potassium 4.0, Chloride 112 H, Carbon Dioxide 24.0, Anion Gap 8, BUN 6 L, Creatinine 0.76, Estim Creat Clear Calc 96.83, Est GFR (MDRD) Af Amer 104, Est GFR (MDRD) Non-Af 86, BUN/Creatinine Ratio 7.9 L, Glucose 82, Calcium 7.9 L, Total Bilirubin 0.40, Direct Bilirubin 0.17, AST 17, ALT 9 L, Alkaline Phosphatase 69, Total Protein 5.2 L, Albumin 2.5 L, Globulin 2.7, Lipase 422 H Current Medications Acetaminophen (Tylenol) 650 mg PO Q6H PRN PRN PRN Reason: Mild Pain (scale 0-3)/T>100.7 Bisacodyl (Dulcolax) 10 mg RECTAL DAILY PRN PRN PRN Reason: Constipation Docusate Sodium (Colace) 200 mg PO BID PRN PRN PRN Reason: Constipation Enoxaparin Sodium (Lovenox) 40 mg SC DAILY [facility] Last Admin: 08/10/18 09:58 Dose: 40 mg Sodium Chloride () 1,000 mls @ 150 mls/hr IV .Q6H40M [facility] Last Admin: 08/10/18 09:55 Dose: 150 mls/hr Metoclopramide HCl (Reglan) 5 mg IV Q6H PRN PRN Reason: NAUSEA/VOMITING Last Admin: 08/09/18 15:10 Dose: 5 mg Morphine Sulfate () 2 mg IV Q3H PRN PRN PRN Reason: Severe Pain (pain scale 6-10) Last Admin: 08/10/18 08:19 Dose: 2 mg Non-Formulary Medication (Norethindrone-E.Estradiol-Iron [Mibelas 24 Fe Chewable Tablet]) 1 each PO DAILY [facility] Ondansetron HCl (Zofran) 4 mg IV Q6H PRN PRN PRN Reason: NAUSEA Last Admin: 08/10/18 08:19 Dose: 4 mg Oxycodone HCl (Oxyir) 5 mg PO Q4H PRN PRN PRN Reason: Moderate Pain (pain scale 4-5) Last Admin: 08/10/18 09:54 Dose: 5 mg Sodium Chloride () 5 - 15 ml IV UD PRN PRN Reason: SALINE FLUSH Last Admin: 08/10/18 08:20 Dose: 10 ml Zolpidem Tartrate (Ambien (Generic)) 5 mg PO QHS PRN PRN PRN Reason: INSOMNIA Last Admin: 08/09/18 23:06 Dose: 5 mg Medical Necessity - Tobacco Use Smoking Status: Never smoker Tobacco Use: Non-smoker, Secondhand Assessment/Plan All Active Problems Acute pancreatitis (Acute) The patient is a 48 year old F with history of gastric bypass surgery in 2001 and cholecystectomy in 2007 came to ED with abdominal pain for 1 week. Earlier patient came to ER on 08/02/18 for right upper quadrant abdominal pain with nausea vomiting and diarrhea was sent home. Initially abdominal pain was intermittent and now it is constant for last 1 day and does not change with position. Patient also had diarrhea, loose bowel movement for 1 week and which is getting more semisolid now. Denies vomiting. Had subjective fever with chills about 2-3 days ago but denies flulike symptoms. Denies lower urinary tract symptoms including frequency, urgency or burning micturition. Denies GI bleed. In ED, lipase is 955. WBC count 3.5 thousand, platelet count 111,000; decreased from 10.8 thousand and 1 90,000 from 08/[address] was done and it mainly shows postoperative surgical changes otherwise no new findings. Pancreas reported normal. 1. Acute pancreatitis, etiology unclear: Patient thinks he had mild pancreat itis in the past and is spontaneously resolved without seeking medical care. Patient is being admitted on MedSurg floor. IV fluid normal saline. Right upper quadrant sonogram ordered. Serum lipase improved. LFT within normal limit. Monitor intake and output and abdominal pain. Start clear liquid after ultrasound. 2. Postmenopausal bleeding on contraceptive pills. Patient follows [employer]. Co ntinue contraceptive pill. Monitor CBC. 3. History of morbid obesity status post gastric bypass surgery and cholecystectomy long time ago: Stable. 4. DVT prophylaxis: On Lovenox 40mg subcu daily. Discontinue if platelet count drops less than 50,000 or hemoglobin less than 8 g%. Clinical Impression(s) from Imaging Studies Abdomen/Pelvis CT 08/09/18 09:49 IMPRESSION: Status post gastric bypass surgery. Small follicle in the left ovary. Postoperative anterior abdominal wall changes. Laboratory Results 08/10/18 05:40: WBC 2.9 L, RBC 3.23 L, Hgb 11.1 L, Hct 33.9 L, MCV 105.0 H, MCH 34.4 H, MCHC 32.7, RDW 12.3, RDW Differential 45.3 H, Plt Count 79 L, MPV 10.3, Immature Gran % (Auto) 0.000, Neut % (Auto) 47.4, Lymph % (Auto) 39.4, [place] % (Auto) 11.5 H, Eos % (Auto) 1.4, Baso % (Auto) 0.3, Absolute Neuts (auto) 1.4 L, Absolute Lymphs (auto) 1.13, Total Counted Not Reportable 08/10/18 05:40: Sodium 144, Potassium 4.0, Chloride 112 H, Carbon Dioxide 24.0, Anion Gap 8, BUN 6 L, Creatinine 0.76, Estim Creat Clear Calc 96.83, Est GFR (MDRD) Af Amer 104, Est GFR (MDRD) Non-Af 86, BUN/Creatinine Ratio 7.9 L, Glucose 82, Calcium 7.9 L, Total Bilirubin 0.40, Direct Bilirubin 0.17, AST 17, ALT 9 L, Alkaline Phosphatase 69, Total Protein 5.2 L, Albumin 2.5 L, Globulin 2.7, Lipase 422 H Code Visit Inpatient E&M: 43444 Subs Hosp L2
[2018-08-10 15:04] VITALS: BP 172/100; PULSE 57; RESP 18; TEMP 37.1; O2SAT 98
--- NOTE | 2018-08-10 16:58 | NURSING ---
LATE ENTRY - 1510 - PT BP 172/[address] HOYT TEXT REGARDING SAME.
[2018-08-10] MEDS: amLODIPine 5 MG Tablet PO (17:24)
[2018-08-10 18:31] VITALS: BP 140/86
[2018-08-10 22:00] VITALS: BP 150/94; PULSE 62; RESP 16; TEMP 36.6; O2SAT 98
[2018-08-10] MEDS: Zolpidem Tartrate 5 MG Tablet PO (22:21)
[2018-08-11] MEDS: 0.9% Normal Saline 1,000 ML 150 ML IV ×2 (00:34→07:03)
[2018-08-11] MEDS: oxyCODONE 5 MG Tablet PO ×3 (03:57→12:17)
[2018-08-11 03:58] VITALS: PULSE 74
[2018-08-11] MEDS: hydrALAZINE 20 MG/ML Vial 10 MG IV (03:58)
[2018-08-11 04:00] VITALS: BP 173/98; PULSE 73; RESP 16; TEMP 36.9; O2SAT 97
[2018-08-11 05:32] VITALS: BP 158/92
[2018-08-11] MEDS: Ondansetron 4 MG/2 ML Vial IV (07:02)
[2018-08-11] MEDS: Morphine 2 MG/ML Syringe IV (07:03)
[2018-08-11 08:11] LABS: ALB/GLOB Ratio 0.8 RATIO (0.9-2.4); AST(SGOT) 21 U/L (15-37); Alanine Aminotransfer ALT/SGPT 9 U/L (13-56); Albumin, Serum 2.7 g/dL (3.2-5.0); Alkaline Phosphatase 78 U/L (45-117); Anion Gap 5 (5-15); BUN 4 mg/dL (7-18); BUN/Creat Ratio 5.4 RATIO (10-20); Calcium,Total 7.9 mg/dL (8.5-10.1); Chloride 110 mmol/L (98-107); Cholesterol 132 mg/dL (200); Creatinine, Serum 0.74 mg/dL (0.55-1.02); EST Glomerular Filtration Rate 89 mL/min (>60); Est Glom Filt Rate - Afr Amer 108 mL/min (>60); Estimated Creatinine Clearance 99.45 ml/min; Globulin 3.3 g/dL (2.2-4.2); Glucose 92 mg/dL (74-106); High Density Lipoprotein 62 mg/dL; Lipase 315 U/L (73-393); Potassium 3.8 mmol/L (3.5-5.1); Sodium Level 140 mmol/L (136-145); Triglycerides 84 mg/dL; Very Low Density Lipoprotein 17 mg/dL (5-40)
[2018-08-11 08:20] LABS: Absolute Lymphocyte Count 0.83 X10^3/ul (0.83-4.51); Absolute Neutrophil Count 2.2 X10^3/uL (2.0-7.7); Eosinophil# 0.02 X10^3/uL; Eosinophils% 0.6 % (0-5); Hematocrit 37.8 % (37-47); Hemoglobin 12.4 g/dl (12.0-15.0); Lymphocyte # 0.83 X10^3/ul (4.0); Lymphocyte % 24.3 % (19-41); Mean Corp Hgb Conc 32.8 g/gl (32-36); Mean Corpuscular Hgb 33.4 pg (27.0-32.0); Mean Corpuscular Volume 101.9 fL (81-99); Mean Platelet Vol. 10.5 fl (6.2-12.0); Monocyte# 0.33 X10^3/uL; Monocyte% 9.6 % (0-10); Neutrophil # 2.24 X10^3/uL (2.7-7.7); Neutrophil % 65.5 % (47-70); Platelet Count 108 K/mm3 (150-450); RBC Distribution Width CV 12.9 % (11.6-14.6); RBC Distribution Width SD 47.9 fl (35.1-43.9); Red Blood Count 3.71 M/mm3 (4.2-5.4); White Blood Count 3.4 K/mm3 (4.4-11.0)
[2018-08-11 08:23] LABS: POSITIVE COUNT NO; POSITIVE DIFFERENTIAL NO; POSITIVE MORPHOLOGY NO
[2018-08-11 09:31] VITALS: BP 149/92; PULSE 79; RESP 18; TEMP 36.6; O2SAT 98
[2018-08-11] MEDS: amLODIPine 5 MG Tablet PO (09:41)
[2018-08-11] MEDS: Enoxaparin 40 MG/0.4 ML Syringe SC (09:41)
[2018-08-11] MEDS: Acetaminophen 325 MG Tablet 650 MG PO (09:41)
--- NOTE | 2018-08-11 11:46 | DCINST_ITS ---
- Discharge Diagnoses Current Active Problems: Current Active and Chronic Problems Acute pancreatitis (Acute) Gastric bypass surgery (Chronic) History of cholecystectomy (Chronic) You will use the following diet at home:: Regular - Low fat, bland diet for 3-5 days and advance gradully as per tolerated. Your food should be the consistency of: Regular - soft diet Discharge Activity: Return to Normal Activity, May Not Drive - for 3 days Weight Bearing Status: Weight bearing as tolerated Call your doctor if you observe: Fever of 101 or Higher, Inability to have a bowel movement, Shortness of breath, Increased palpitations (irregular heartbeat), - - abdominal pain Allergies/Adverse Reactions: Allergies diazoxide Allergy (Verified 08/09/18 09:24) Hives Medications to take at Discharge Norethindrone-E.estradiol-Iron [Mibelas 24 Fe Chewable Tablet] 1 each PO DAILY 03/11/18 Multivitamin [Multiple Vitamins] 1 each PO DAILY 08/09/18 Amlodipine [Norvasc] 5 mg PO DAILY #30 tablet 08/11/18 The following prescriptions were given: Amlodipine [Norvasc] 5 mg PO DAILY #30 tablet Primary Care Physician: Louis Hernandez MD [Primary Care Provider] - Test Results: Test results from this visit will be discussed in further detail at your follow- up appointment, if applicable.
--- NOTE | 2018-08-11 11:46 | PCM.DC.SUM ---
Discharge Date and Diagnosis Date of Admission: 08/09/18 Date of Discharge: 08/11/18 - Primary Discharge Diagnosis Active and Suspected Problems Acute pancreatitis (Acute) - Secondary Discharge Diagnosis Chronic Problems Gastric bypass surgery (Chronic) History of cholecystectomy (Chronic) Hospital Course and Treatment Summary of Care Provided: [] The patient is a 48 year old F with history of gastric bypass surgery in 2001 and cholecystectomy in 2007 came to ED with abdominal pain for 1 week. Earlier patient came to ER on 08/02/18 for right upper quadrant abdominal pain with nausea vomiting and diarrhea was sent home. Initially abdominal pain was intermittent and now it is constant for last 1 day and does not change with position. Patient also had diarrhea, loose bowel movement for 1 week and which is getting more semisolid now. Denies vomiting. Had subjective fever with chills about 2-3 days ago but denies flulike symptoms. Denies lower urinary tract symptoms including frequency, urgency or burning micturition. Denies GI bleed. In ED, lipase is 955. WBC count 3.5 thousand, platelet count 111,000; decreased from 10.8 thousand and 1 90,000 from 08/[address] was done and it mainly shows postoperative surgical changes otherwise no new findings. Pancreas reported normal. 1. Acute pancreatitis, etiology unclear: Patient thinks he had mild pancreatitis in the past and is spontaneously resolved without seeking medical care. [facility] IV fluid normal saline. Right upper quadrant sonogram ordered. Serum lipase improved to normal 315. LFT within normal limit. Monitor intake and output and abdominal pain. Right upper quadrant sonogram was done shows no acute sonographic abnormality. No sonographic evidence of acute pancreatitis. CBD 3.2 mm. Normal echogenicity of pancreas. Patient was advised to stay on liquid diet today and try soft diet for 3-5 days advance gradually with no fat/Oily diet. LFTs are within normal limit with normal transaminases and alkaline phosphatase and bilirubin. Fasting profile within normal limit. If she further gets acute pancreatitis episode, MRCP might be considered. 2. Postmenopausal bleeding on contraceptive pills. Patient follows [employer]. Continue contraceptive pill. Monitor CBC. 3. History of morbid obesity status post gastric bypass surgery and cholecystectomy long time ago: Stable. 4. DVT prophylaxis: On Lovenox 40mg subcu daily. Discontinue if platelet count drops less than 50,000 or hemoglobin less than 8 g%. The patient wants to go home. At this point time, workup for acute pancreatitis was mainly negative. If she further gets abdominal pain/acute pancreatitis was advised surgical referral. Discharge medication reconciliation done. Discharge follow-up instructions completed. Discharge process discussed with the patient and her near the bedside and all questions were answered to patient's satisfaction.. Total time spent, exact 35 minutes on discharge meds reconciliation, examination, review of imaging and blood test and discussion with the patient on follow-up instructions. Clinical Impression(s) from Imaging Studies Abdomen/Pelvis CT 08/09/18 09:49 IMPRESSION: Status post gastric bypass surgery. Small follicle in the left ovary. Postoperative anterior abdominal wall changes. Abdomen Ultrasound 08/10/18 10:46 IMPRESSION: No acute sonographic abnormality. No sonographic evidence of acute pancreatitis. Subjective: Patient had nausea and abdominal pain last night unclear liquid diet yesterday. It improved during morning time. She does not feel nauseated. She tolerated clear liquid. Cause for acute pancreatitis still unclear. Right upper quadrant is negative for biliary obstruction - Physical Exam General: Alert, Oriented x3, Cooperative HEENT: Atraumatic, PERRLA, EOMI, Normocephalic Neck: Supple, No JVD, Negative Carotid Bruits Lungs: Clear to auscultation, Normal air movement, No rhonchi, No wheeze, No rales Cardiovascular: Regular rate, Regular Rhythm, Normal S1, Normal S2, No murmurs Abdomen: Bowel Sounds Present, Soft, Non Tender, Non-Distended, - - No epigastric or right upper quadrant tenderness even on deep palpation. No palpable mass Extremities: No edema, Capillary Refill Less than 3 Seconds Skin: No rashes, No breakdown Musculoskeletal: No Tenderness to Palpation of Joints or Extremities Neurological: Cranial nerves II-XII grossly intact Psych/Mental Status: Normal Affect, Appropriate Vital Signs Temp Pulse Resp BP Pulse Ox 97.9 F 79 18 149/92 H 98 08/11/18 09:31 08/11/18 09:31 08/11/18 09:31 08/11/18 09:31 08/11/18 09:31 Oxygen Delivery Method Room Air Weight: 216 lb Body Mass Index (BMI) 30.9 Intake and Output for Last 24 Hours 02/26/19 02/27/19 02/28/19 23:59 23:59 23:59 Intake Total 1358 / 1358 3088 / 3088 2633 / 2633 Balance 1358 / 1358 3088 / 3088 2633 / 2633 Laboratory Tests Past 24 Hrs 08/11/18 08/11/18 07:45 07:45 WBC 3.4 L RBC 3.71 L Hgb 12.4 Hct 37.8 MCV 101.9 H MCH 33.4 H MCHC 32.8 RDW 12.9 RDW Differential 47.9 H Plt Count 108 L MPV 10.5 Immature Gran % (Auto) 0.000 Neut % (Auto) 65.5 Lymph % (Auto) 24.3 [place] % (Auto) 9.6 Eos % (Auto) 0.6 Baso % (Auto) 0.0 Absolute Neuts (auto) 2.2 Absolute Lymphs (auto) 0.83 Total Counted Not Reportable Sodium 140 Potassium 3.8 Chloride 110 H Carbon Dioxide 25.0 Anion Gap 5 BUN 4 L Creatinine 0.74 Estim Creat Clear Calc 99.45 Est GFR (MDRD) Af Amer 108 Est GFR (MDRD) Non-Af 89 BUN/Creatinine Ratio 5.4 L Glucose 92 Calcium 7.9 L Total Bilirubin 0.60 AST 21 ALT 9 L Alkaline Phosphatase 78 Total Protein 6.0 L Albumin 2.7 L Globulin 3.3 Albumin/Globulin Ratio 0.8 L Triglycerides 84 Cholesterol 132 LDL Cholesterol 53 VLDL Cholesterol 17 HDL Cholesterol 62 Lipase 315 Discharge Activity: Return to Normal Activity, May Not Drive - for 3 days Weight Bearing Status: Weight bearing as tolerated Call your doctor if you observe: Fever of 101 or Higher, Inability to have a bowel movement, Shortness of breath, Increased palpitations (irregular heartbeat), - - abdominal pain Home Medications: Medications to take at Discharge Norethindrone-E.estradiol-Iron [Mibelas 24 Fe Chewable Tablet] 1 each PO DAILY 03/11/18 Multivitamin [Multiple Vitamins] 1 each PO DAILY 08/09/18 Amlodipine [Norvasc] 5 mg PO DAILY #30 tablet 08/11/18 Following Prescrptions Were Given to Patient: Amlodipine [Norvasc] 5 mg PO DAILY #30 tablet Primary Care Physician: Louis Hernandez MD [Primary Care Provider] - Medical Necessity - Tobacco Use Smoking Status: Never smoker Tobacco Use: Non-smoker, Secondhand Meaningful Use Info Meaningful Use Diagnoses (Choose all that apply): None applicable Code Visit Inpatient E&M: 75728 Disch Hosp
== END 2018-08-11 12:24 | disposition home or self-care (01) ==
LOC: ED 10:17 → MS2 13:39
PROVIDERS: Admitting Provider Internal Medicine; Emergency Provider Emergency Medicine; Family Provider Family Medicine; PCP Family Medicine; Visit Provider Internal Medicine
DX: K85.90 Acute pancreatitis without necrosis or infection, unspecified (principal); Z98.84 Bariatric surgery status; N95.0 Postmenopausal bleeding
CPT/HCPCS: 36415; 74177; 76705; 80048; 80053; 80061; 80076; 83690; 85025; 96361; 96372; 96374; 96375; 96376; 99218; 99282; J7030; Q9967; A4216; G0378; J2405

== ENCOUNTER 2018-10-02 17:05 | Emergency (ER) | payer OTHER, SELFPAY ==
[2018-08-09 14:28] VITALS: BMI 30.9
[2018-10-02 17:06] VITALS: BP 158/101; PULSE 106; RESP 18; TEMP 36.3; O2SAT 98; BMI 30.8
[2018-10-02] MEDS: 0.9% Normal Saline 1,000 ML 1000 ML IV (18:06)
[2018-10-02] MEDS: Ondansetron 4 MG/2 ML Vial IV (18:06)
[2018-10-02] MEDS: Morphine 4 MG/ML Syringe IV (18:07)
[2018-10-02 18:08] LABS: Absolute Lymphocyte Count 1.03 X10^3/ul (0.83-4.51); Absolute Neutrophil Count 7.5 X10^3/uL (2.0-7.7); Basophil# 0.01 X10^3/uL; Basophil% 0.1 % (0-1); Hematocrit 39.3 % (37-47); Hemoglobin 13.3 g/dl (12.0-15.0); Lymphocyte # 1.03 X10^3/ul (4.0); Lymphocyte % 11.5 % (19-41); Mean Corp Hgb Conc 33.8 g/gl (32-36); Mean Corpuscular Hgb 33.9 pg (27.0-32.0); Mean Corpuscular Volume 100.3 fL (81-99); Monocyte# 0.36 X10^3/uL; Neutrophil # 7.51 X10^3/uL (2.7-7.7); Neutrophil % 84.2 % (47-70); Platelet Count 102 K/mm3 (150-450); RBC Distribution Width CV 14.5 % (11.6-14.6); RBC Distribution Width SD 52.2 fl (35.1-43.9); Red Blood Count 3.92 M/mm3 (4.2-5.4); White Blood Count 8.9 K/mm3 (4.4-11.0)
[2018-10-02 18:11] LABS: POSITIVE COUNT NO; POSITIVE DIFFERENTIAL NO; POSITIVE MORPHOLOGY NO
[2018-10-02 18:22] LABS: AST(SGOT) 25 U/L (15-37); Alanine Aminotransfer ALT/SGPT 11 U/L (13-56); Albumin, Serum 3.5 g/dL (3.2-5.0); Alkaline Phosphatase 137 U/L (45-117); Anion Gap 6 (5-15); BUN 7 mg/dL (7-18); BUN/Creat Ratio 7.8 RATIO (10-20); Bilirubin, Direct 0.31 mg/dL (0.00-0.30); Calcium,Total 8.6 mg/dL (8.5-10.1); Chloride 100 mmol/L (98-107); Creatinine, Serum 0.89 mg/dL (0.55-1.02); EST Glomerular Filtration Rate 71 mL/min (>60); Est Glom Filt Rate - Afr Amer 86 mL/min (>60); Estimated Creatinine Clearance 82.69 ml/min; Globulin 3.9 g/dL (2.2-4.2); Glucose 106 mg/dL (74-106); Lipase 305 U/L (73-393); Potassium 3.4 mmol/L (3.5-5.1); Protein, Total 7.4 g/dL (6.4-8.2); Sodium Level 135 mmol/L (136-145)
--- NOTE | 2018-10-02 19:05 | CT_ITS ---
STUDY: CT ABDOMEN AND PELVIS WITH CONTRAST REASON FOR EXAM: Female, 48 years old. Right-sided abdominal pain RADIATION DOSAGE (If Supplied By Facility): CTDIvol = ( 17.49 ) mGy, DLP = ( 1198.73 ) mGycm TECHNIQUE: Transaxial images were obtained from the dome of the diaphragm to the symphysis pubis without oral contrast. 100ML IV/Oral Isovue 300 was administered. Sagittal and coronal images were reconstructed. Individualized dose optimization techniques were used for this CT. COMPARISON: CT abdomen and pelvis 08/09/2018. FINDINGS: There are bilateral breast implants. The visualized lung bases are unremarkable. The visualized portions of the heart are within normal limits. Normal liver. There are surgical clips in the gallbladder fossa consistent with a prior cholecystectomy. Normal spleen. Normal pancreas. Normal bilateral adrenal glands. Normal right kidney. Normal left kidney. There is partial gastrectomy with gastric bypass surgery. Normal small intestine. Normal colon. There is non-visualization of the appendix. Normal abdominal aorta. Normal inferior vena cava. Normal retroperitoneum. The urinary bladder is collapsed. There are surgical clips along the anterior abdominal and pelvic wall likely related to known abdominoplasty. There are diffuse degenerative changes of the visualized lumbar spine. CT/Abdomen/Pelvis WITH Contrast IMPRESSION: No acute abdominal or pelvic pathology. Electronically Signed: Mehrdad Phillips, at 21:10 EDT Tel , Service support ,
[2018-10-02] MEDS: 0.9% Normal Saline 1,000 ML 150 ML IV (19:22)
[2018-10-02] MEDS: HYDROmorphone 0.5 MG/0.5 ML SYRINGE IV ×2 (19:22→20:38)
[2018-10-02] MEDS: proMETHazine 25 MG/ML Syringe 6.25 MG IV (19:22)
--- NOTE | 2018-10-02 19:35 | ED.VISSUMM ---
- ER Visit Summary Date of Service: 10/02/18 Chief Complaint: Nausea, vomiting, diarrhea History of Present Illness: The patient is a 48 F with nausea, vomiting, and diarrhea for the past 2 days. She has some epigastric pain similar to when she was diagnosed with pancreatitis in July. She does report having mild chills but no measured fever. She has noted decreased urine output. Patient has had prior cholecystotomy gastric bypass surgery in 2001. Physical Examination: Blood pressure is 150/101, temperature 97.3, heart rate 106, respiratory rate 18, pulse ox 98% on room air. Patient sitting upright in bed no acute distress. She is nontoxic appearing. Head and neck examination grossly unremarkable. Heart is tachycardic and regular. Lung sounds are clear. Abdomen is soft with mild tenderness in epigastrium. No guarding or rebound. Hypoactive but present bowel sounds are noted. Test Results: CBC significant only for platelet count of 102,000. Chemistry studies reveal potassium 3.4. Liver function test revealed total bili of 1.30, direct bili 0.31, alk phos 137. Lipase is normal. Emergency Department Course and Treatment: Patient was given IV fluids, morphine, and Zofran. On repeat evaluation she was still complaining of pain more to the right upper quadrant now and continued nausea. She was given a dose of Dilaudid and Phenergan. CT scan of the abdomen pelvis is obtained. CT reveals no acute pathology. On repeat evaluation patient is resting comfortably. Test results were discussed with patient and family at bedside. She will be given analgesics and antiemetics for home. Treatment Plan: [] Disposition: Discharge Impression: Gastroenteritis This note was generated with [employer] dictation software. It may contain incorrect words, spelling, and punctuation that were not noted in review of the chart prior to signing ED Disposition - Plan for ED Patient: Disposition: Home or Assisted Living Instructions: ED Gastroenteritis Viral Prescriptions: Hydrocodone Bitart/Apap 5-325 [Weaver 5MG-325MG] 1 tablet PO Q6H PRN PRN 3 Days #10 tablet PRN Reason: Pain Ondansetron [Zofran Odt] 4 mg PO Q8H PRN PRN #10 tablet PRN Reason: Nausea Referrals: Louis Hernandez MD [Primary Care Provider] - 1 Week
[2018-10-02 20:09] VITALS: BP 139/86; PULSE 86; RESP 16; O2SAT 98
[2018-10-02 20:43] LABS: Bacteria 0 SEEN /hpf (None Seen); Mucous, Urine 0 SEEN /hpf (<or=2+); Red Blood Cells-Urine 0 SEEN /hpf (0-5); White Blood Cells 0 SEEN /hpf (0-5)
[2018-10-02 20:46] LABS: Color, Urine Yellow (Yellow); Glucose, Dipstick Normal (Normal); Ketone-Dipstick Negative (Negative); Leukocyte Esterase-Dipstick Negative /ul (Negative); Nitrite-Dipstick Negative (Negative); Occult Blood-Urine Negative /ul (Negative); Protein-Dipstick Negative (Negative); Urine Bilirubin Dipstick Negative (Negative); Urine Clarity Sl. Cloudy (Clear); Urine Urobilinogen Normal (Normal)
[2018-10-02 20:50] LABS: Squamous Epithelial Cells - UA 0-5 SEEN /hpf (5-10)
[2018-10-02] MEDS: HYDROcodone Bitartrate/Apap 5/325 Tablet PO (22:21)
[2018-10-02] MEDS: Ondansetron ODT 4 MG Tablet PO (22:21)
[2018-10-02 22:25] VITALS: PULSE 80; RESP 16; O2SAT 99
== END 2018-10-02 22:25 | disposition home or self-care (01) ==
PROVIDERS: Emergency Provider Emergency Medicine; Family Provider Family Medicine; PCP Family Medicine
DX: K52.9 Noninfective gastroenteritis and colitis, unspecified (principal); Z98.84 Bariatric surgery status; Z90.49 Acquired absence of other specified parts of digestive tract
CPT/HCPCS: 74177; 80048; 80076; 81001; 83690; 85025; 96361; 96374; 96375; 96376; 99284; J7030; Q9967; A4216; J2405

== ENCOUNTER 2018-10-04 10:11 | Emergency (ER) | payer OTHER, SELFPAY ==
[2018-10-04 10:14] VITALS: BP 142/85; PULSE 93; RESP 16; TEMP 36.7; O2SAT 97; BMI 30.1
--- NOTE | 2018-10-04 10:29 | ED.VISSUMM ---
- ER Visit Summary Date of Service: 10/04/18 Chief Complaint: Abdominal pain History of Present Illness: The patient is a 48 F who presents with left-sided abdominal pain that has been getting worse over the past week. Patient was seen here 2 days ago and had labs and a CT scan done which did not show any acute abnormalities. Patient was given analgesics and antiemetics to take at home. Patient states she is unable to keep anything down for the past 5 days. Patient denies any hematemesis or coffee-ground emesis. Patient admits to some diarrhea but states this resolved after taking Imodium. Patient denies any melena or hematochezia. Patient denies any urinary complaints. Patient denies any back pain. Physical Examination: Vital signs are stable. Patient is afebrile. Patient is in no acute distress. Oral mucosa is pink and moist. Neck is supple. Trachea is midline. There is no JVD noted. Heart was regular rate and rhythm. Lungs are clear and equal bilateral. Abdomen is soft. Bowel sounds are normal. There is left upper quadrant tenderness. There is no rebound or guarding noted. Skin is warm dry. Cranial nerves II through XII are intact. There are no focal motor or sensory deficits noted. The remaining physical exam is within normal limits. Test Results: CBC showed a mild anemia with a hemoglobin of 11.6. Comprehensive metabolic profile and lipase were essentially within normal limits. Urinalysis does not show any evidence of urinary tract infection. Acute abdominal x-rays were obtained. There is no obstruction pattern noted. There is nonspecific bowel gas pattern. Emergency Department Course and Treatment: Patient was given IV fluids, morphine, and Zofran. Patient had minimal relief of her pain from this. Patient was given a repeat dose of morphine. Patient was instructed to follow-up with her primary care physician in 5-7 days. Patient was given a prescription for Phenergan suppositories to take instead of the Zofran ODT tablets. Patient was understanding and agreeable with the plan. All questions were answered. Disposition: Discharge home Impression: Left upper quadrant abdominal pain. This note was generated with [employer] software. It may contain incorrect words, spelling, and punctuation that were not noted in review of the chart prior to signing ED Disposition - Plan for ED Patient: Disposition: Home or Assisted Living Diagnosis: Left upper quadrant abdominal pain of unknown etiology Instructions: ED Abdominal Pain Unkn Cause Prescriptions: proMETHazine suppository [Phenergan Suppository] 25 mg RECTAL Q6H PRN PRN #6 suppos. PRN Reason: Nausea Referrals: Louis Hernandez MD [Primary Care Provider] - 3-5 Days
[2018-10-04] MEDS: Ondansetron 4 MG/2 ML Vial IV (10:40)
[2018-10-04] MEDS: Morphine 4 MG/ML Syringe IV ×2 (10:40→13:30)
[2018-10-04] MEDS: 0.9% Normal Saline 1,000 ML 1000 ML IV (10:41)
[2018-10-04 10:48] LABS: Absolute Lymphocyte Count 0.65 X10^3/ul (0.83-4.51); Basophil# 0.01 X10^3/uL; Basophil% 0.2 % (0-1); Eosinophil# 0.01 X10^3/uL; Eosinophils% 0.2 % (0-5); Hematocrit 34.3 % (37-47); Hemoglobin 11.6 g/dl (12.0-15.0); Lymphocyte # 0.65 X10^3/ul (4.0); Lymphocyte % 13.5 % (19-41); Mean Corp Hgb Conc 33.8 g/gl (32-36); Mean Corpuscular Volume 100.6 fL (81-99); Monocyte# 0.13 X10^3/uL; Monocyte% 2.7 % (0-10); Neutrophil # 4.02 X10^3/uL (2.7-7.7); Neutrophil % 83.2 % (47-70); Platelet Count 56 K/mm3 (150-450); RBC Distribution Width CV 14.1 % (11.6-14.6); RBC Distribution Width SD 51.4 fl (35.1-43.9); Red Blood Count 3.41 M/mm3 (4.2-5.4); White Blood Count 4.8 K/mm3 (4.4-11.0)
[2018-10-04 10:49] LABS: POSITIVE COUNT NO; POSITIVE DIFFERENTIAL NO; POSITIVE MORPHOLOGY NO
[2018-10-04 11:02] LABS: ALB/GLOB Ratio 0.9 RATIO (0.9-2.4); AST(SGOT) 21 U/L (15-37); Alanine Aminotransfer ALT/SGPT 8 U/L (13-56); Alkaline Phosphatase 121 U/L (45-117); Anion Gap 10 (5-15); BUN 5 mg/dL (7-18); BUN/Creat Ratio 6.3 RATIO (10-20); Calcium,Total 8.3 mg/dL (8.5-10.1); Chloride 103 mmol/L (98-107); EST Glomerular Filtration Rate 82 mL/min (>60); Est Glom Filt Rate - Afr Amer 99 mL/min (>60); Estimated Creatinine Clearance 91.99 ml/min; Globulin 3.5 g/dL (2.2-4.2); Glucose 86 mg/dL (74-106); Lipase 170 U/L (73-393); Potassium 3.7 mmol/L (3.5-5.1); Protein, Total 6.5 g/dL (6.4-8.2); Sodium Level 140 mmol/L (136-145)
--- NOTE | 2018-10-04 11:14 | RAD_ITS ---
STUDY: X-RAY - ACUTE ABDOMINAL SERIES REASON FOR EXAM: Female, 48 years old. Abdominal pain TECHNIQUE: Single view of the chest. Supine, 1 view(s) of the abdomen were obtained. COMPARISON: None. FINDINGS: The lungs are clear and expanded. Normal size heart. Normal mediastinum and calixto. Normal visualized pulmonary arteries. Normal visualized aortic arch and descending thoracic aorta. There are surgical gera in the right and left abdomen. There is oral contrast seen throughout portions of the large bowel. There is a non-specific bowel gas pattern. The soft tissue structures of the abdomen and pelvis are unremarkable. There is mild dextrocurvature of the lumbar spine. RAD/Acute Abdomen Inc Chest IMPRESSION: Normal x-ray examination of the chest, abdomen, and pelvis. Nonspecific bowel gas pattern. Clear chest. Electronically Signed: Mehrdad Phillips, at 11:43 EDT Tel , Service support ,
[2018-10-04 11:52] LABS: Red Blood Cells-Urine 0 SEEN /hpf (0-5)
[2018-10-04 12:02] LABS: Color, Urine Yellow (Yellow); Glucose, Dipstick Normal (Normal); Leukocyte Esterase-Dipstick 25 /ul (Negative); Nitrite-Dipstick Negative (Negative); Occult Blood-Urine Negative /ul (Negative); Protein-Dipstick 15 mg/dl (Negative); Specific Gravity, Urine 1.015 (1.002-1.030); Urine Clarity Sl. Cloudy (Clear); Urine Urobilinogen 4 mg/dl (Normal); Urine pH 6.5 (5.0 - 8.0)
[2018-10-04 12:03] LABS: Urine Bilirubin Dipstick 1 mg/dL (Negative)
[2018-10-04 12:09] LABS: Ketone-Dipstick 150 mg/dl (Negative)
[2018-10-04 12:10] LABS: Mucous, Urine 2+ /hpf (<or=2+); Squamous Epithelial Cells - UA 0-5 SEEN /hpf (5-10); White Blood Cells 0-5 SEEN /hpf (0-5)
[2018-10-04 12:11] LABS: Calcium Oxalate Crystals Ur 2+ /hpf (<or=2+)
[2018-10-04 12:12] LABS: Bacteria 1+ /hpf (None Seen)
[2018-10-04 13:33] VITALS: BP 147/81; PULSE 78; RESP 16; O2SAT 98
== END 2018-10-04 13:33 | disposition home or self-care (01) ==
PROVIDERS: Emergency Provider Emergency Medicine; Family Provider Family Medicine; PCP Family Medicine
DX: R10.12 Left upper quadrant pain (principal); R51 Headache; R11.2 Nausea with vomiting, unspecified; R19.7 Diarrhea, unspecified; J34.89 Other specified disorders of nose and nasal sinuses
CPT/HCPCS: 74022; 80053; 81001; 83690; 85025; 96361; 96374; 96375; 96376; 99283; J7030; A4216; J2405

== ENCOUNTER 2018-12-19 18:31 | Observation (INO) | payer OTHER, SELFPAY ==
[2018-12-19] VITALS (9 sets, daily range): BP systolic 135–144; BP diastolic 87–99; PULSE 75–100; RESP 14–20; TEMP 36.3–37.1; O2SAT 98–100; BMI 29.4; BMI 30.3
--- NOTE | 2018-12-19 18:41 | EKG12_ITS ---
Test Reason : CP Blood Pressure : / mmHG Vent. Rate : 079 BPM Atrial Rate : 079 BPM P-R Int : 116 ms QRS Dur : 112 ms QT Int : 420 ms P-R-T Axes : 002 016 009 degrees QTc Int : 481 ms Normal sinus rhythm Incomplete right bundle branch block Prolonged QT Abnormal ECG Confirmed by EUSEBIA CLARKE, VESTA ([id number]), commissioning editor KIANA FUNG ([id number]) on 12/20/2018 1:44:53 PM Referred By: Maya Funes Confirmed By:VESTA LAWS MD
--- NOTE | 2018-12-19 18:45 | RAD_ITS ---
STUDY: X-RAY CHEST REASON FOR EXAM: Female, 48 years old. Chest pain TECHNIQUE: AP portable COMPARISON: None. FINDINGS: The lungs are clear and expanded. There is no demonstrated pleural abnormality. Normal size heart. Normal mediastinum and calixto. Normal visualized pulmonary arteries. Normal visualized aortic arch and descending thoracic aorta. Normal visualized thoracic spine. Normal visualized ribs, clavicles, and shoulders. There are surgical clips seen within the soft tissues of the proximal left arm There is no demonstrated abnormality of the visualized soft tissue structures of the upper abdomen. RAD/Chest 1 View (Portable) IMPRESSION: No acute cardiopulmonary pathology Electronically Signed: Solo Rodas MD at 19:11 EDT , Service support ,
--- NOTE | 2018-12-19 18:55 | ED.VIS.GEN ---
History of Present Illness Chief Complaint: Chest Pain Informant: Patient Onset: Days Context: Onset with activity Timing: Intermittent Current Severity: Mild Maximum Severity: Severe Narrative: Patient presents to the emergency department chest pain shortness of breath. Patient states she is been having the symptoms for the past 3 or 4 days. She states she has been having exertional dyspnea. She went to her primary care. She had EKG done which demonstrated a right bundle branch block. She was having no pain at the time. She was scheduled for an echo and an outpatient stress test. States over the past 2 days, her symptoms have become more frequent. She describes exertional dyspnea. Today, she began to have chest tightness that radiated to her left arm. She felt more short of breath. Her symptoms are improved with one nitro. She denies any history of coronary vascular disease. There is a strong family history of heart disease. Prior similar symptoms: Yes Recent Illness/Hospitalization: No Past Medical History - Allergies and Home Meds Allergies/Adverse Reactions: Allergies diazoxide Allergy (Verified 12/19/18 18:32) Hives Prior records reviewed: Yes Smoking Status: Never smoker Alcohol: Occasional Drugs: None - Family History Paternal Family History: Reports: No pertinent history - No history of pancreatitis in parents. Maternal Family History: Reports: - - Her mother had scleroderma and pulmonary hypertension. Review of Systems General: Denies: Chills, Fever, Sweats Eyes: Denies: Visual changes - bilaterally, Diplopia ENT: Denies: Rhinorrhea, Sore throat Cardiovascular: Reports: Chest pain Respiratory: Reports: Dyspnea Gastrointestinal: Denies: Abdominal pain, Nausea, Vomiting, Diarrhea, Melena, Hematochezia Genitourinary: Denies: Dysuria, Hematuria, Frequency Musculoskeletal: Denies: Back pain, Extremity Pain Skin: Denies: Rash, Wounds Neurological: Denies: Headache, Weakness, Numbness Physical Exam Vital Signs/Narrative: Vital Signs Temp Pulse Resp BP Pulse Ox 12/19/18 18:41 100 12/19/18 18:32 97.4 F L 80 20 H 144/87 H 100 Inital Vital Signs reviewed: Yes General: Well nourished, Well developed, No Acute Distress Head: Normocephalic, Atraumatic Eyes: Perrl, EOMI ENT: Moist mucous membranes, No rhinorrhea Neck: Supple, Nontender Cardiovascular: Regular rate, Regular rhythm, No murmurs Respiratory: No distress, CTA bilaterally, Chest nontender Abdomen: Soft, Nontender, Nondistended, Normal bowel sounds Back: Nontender, Normal Inspection Extremities: Nontender, No edema Skin: Normal color, No rash Neurological: Alert, Oriented x3, Cranial nerves II-XII grossly intact, Normal Strength, Normal Sensation Psychological: Normal affect, Normal Mood Diagnostic/Tx/Re-eval Chest X-Ray - ED: 1 View, Normal, Heart, Lungs Clinical Impression(s) from Imaging Studies Chest X-Ray 12/19/18 18:45 IMPRESSION: No acute cardiopulmonary pathology Electronically Signed: Solo Rodas MD at 19:11 EDT , Service support , Abnormal Lab Results 12/19/18 12/19/18 12/19/18 19:00 19:00 19:00 WBC 4.2 L RBC 3.51 L Hgb 11.9 L Hct 34.9 L MCV 99.4 H MCH 33.9 H MCHC 34.1 RDW 15.2 H RDW Differential 54.7 H Plt Count 110 L MPV 10.4 Immature Gran % (Auto) 0.200 Neut % (Auto) 60.4 Lymph % (Auto) 21.7 [place] % (Auto) 17.5 H Eos % (Auto) 0.2 Baso % (Auto) 0.0 Absolute Neuts (auto) 2.6 Absolute Lymphs (auto) 0.92 Total Counted Not Reportable D-Dimer Quant (PE/DVT) Sodium 137 Potassium 4.2 Chloride 106 Carbon Dioxide 25.0 Anion Gap 6 BUN 7 Creatinine 1.01 Estim Creat Clear Calc 72.86 Est GFR (MDRD) Af Amer 75 Est GFR (MDRD) Non-Af 62 BUN/Creatinine Ratio 6.9 L Glucose 92 Calcium 9.2 Magnesium Troponin I < 0.015 B-Natriuretic Peptide 69.5 12/19/18 12/19/18 19:00 19:00 WBC RBC Hgb Hct MCV MCH MCHC RDW RDW Differential Plt Count MPV Immature Gran % (Auto) Neut % (Auto) Lymph % (Auto) [place] % (Auto) Eos % (Auto) Baso % (Auto) Absolute Neuts (auto) Absolute Lymphs (auto) Total Counted D-Dimer Quant (PE/DVT) 3.69 H* Sodium Potassium Chloride Carbon Dioxide Anion Gap BUN Creatinine Estim Creat Clear Calc Est GFR (MDRD) Af Amer Est GFR (MDRD) Non-Af BUN/Creatinine Ratio Glucose Calcium Magnesium 1.8 Troponin I B-Natriuretic Peptide - Rhythm Strip Rhythm Strip: Sinus Rhythm Ectopy: None - EKG Initial EKG Interpretation: Sinus Rhythm, RBBB, Non-Specific ST Changes Prior: No Prior - Medical Decision Making The patient presents with exertional dyspnea and chest tightness. Her EKG demonstrates right bundle branch block which she has a recent history of. Patient was given nitro with some improvement of her pain. Her cardiac enzymes are normal. At this point, I do feel the safest thing would be to observe the patient with cardiac rule out. The patient was discussed with the hospitalist who agrees the plan of care. ED Disposition - Plan for ED Patient: Disposition: Acute Care Hospital [facility] Diagnosis: Chest pain
[2018-12-19] MEDS: Nitroglycerin Oint 1 INCH PACKET TRANSDERM. (18:58)
[2018-12-19 19:14] LABS: Absolute Lymphocyte Count 0.92 X10^3/ul (0.83-4.51); Absolute Neutrophil Count 2.6 X10^3/uL (2.0-7.7); Eosinophil# 0.01 X10^3/uL; Eosinophils% 0.2 % (0-5); Hematocrit 34.9 % (37-47); Hemoglobin 11.9 g/dl (12.0-15.0); Lymphocyte # 0.92 X10^3/ul (4.0); Lymphocyte % 21.7 % (19-41); Mean Corp Hgb Conc 34.1 g/gl (32-36); Mean Corpuscular Hgb 33.9 pg (27.0-32.0); Mean Corpuscular Volume 99.4 fL (81-99); Mean Platelet Vol. 10.4 fl (6.2-12.0); Monocyte# 0.74 X10^3/uL; Monocyte% 17.5 % (0-10); Neutrophil # 2.56 X10^3/uL (2.7-7.7); Neutrophil % 60.4 % (47-70); POSITIVE COUNT NO; POSITIVE DIFFERENTIAL NO; POSITIVE MORPHOLOGY NO; Platelet Count 110 K/mm3 (150-450); RBC Distribution Width CV 15.2 % (11.6-14.6); RBC Distribution Width SD 54.7 fl (35.1-43.9); Red Blood Count 3.51 M/mm3 (4.2-5.4); White Blood Count 4.2 K/mm3 (4.4-11.0)
[2018-12-19 19:30] LABS: Anion Gap 6 (5-15); BUN 7 mg/dL (7-18); BUN/Creat Ratio 6.9 RATIO (10-20); Calcium,Total 9.2 mg/dL (8.5-10.1); Chloride 106 mmol/L (98-107); Creatinine, Serum 1.01 mg/dL (0.55-1.02); EST Glomerular Filtration Rate 62 mL/min (>60); Est Glom Filt Rate - Afr Amer 75 mL/min (>60); Estimated Creatinine Clearance 72.86 ml/min; Glucose 92 mg/dL (74-106); Potassium 4.2 mmol/L (3.5-5.1); Sodium Level 137 mmol/L (136-145)
[2018-12-19] MEDS: 0.9% Normal Saline 1,000 ML 150 ML IV (20:04)
--- NOTE | 2018-12-19 20:14 | HP.PCM_ITS ---
Problem List (1) Chest pain Status: Acute Qualifiers: Chest pain type: unspecified Qualified Code(s): R07.9 - Chest pain, unspecified (2) Acute pancreatitis Status: Ruled-out (3) Gastric bypass surgery Status: Chronic (4) History of cholecystectomy Status: Chronic (5) Peptic ulcer disease Status: Resolved Comment: Last episode of peptic ulcer disease was 8 years ago. History of Present Illness Date of Admission: 12/19/18 Chief Complaint: chest pain The patient is a 48 year old F with a past medical history of recently diagnosed hypertension, thrombocytopenia, gastric bypass surgery and cholecystectomy who presented to the emergency department at [facility] on 12/19/2018 complaining of chest pain which has been present on and off for the past week. Today the chest pain occurred while she was walking around [employer] and was associated with shortness of breath. It has been present for approximately 2- 1/2 hours now. She states that it is substernal and right chest. It is not pleuritic. She denies hemoptysis. It has been unremitting since approximately 530. Over the past week she has had shortness of breath and has to stop and rest when she is getting ready for work. She denies any cough. She denies fever or shaking chills. She denies any history of pulmonary embolus or DVT. She denies any recent long plane trips or car trips. She has had no injuries to her legs. She denies any leg swelling. There is a strong family history of coronary disease in her father Who had bypass surgery in his 50s. Her mother of pulmonary hypertension secondary to scleroderma. She was seen by her primary care physician at the [facility] last week and scheduled for a chemical nuclear stress test next week. Her chest pain lasts for 3 to 4 hours at a time. EKG in the emergency room showed right bundle branch block which she states is new. Chest x-ray showed no pulmonary infiltrates, pleural effusions or pulmonary vascular congestion. Troponin was less than 0.015 in the emergency department. Lab was remarkable for a mildly decreased white blood cell count and thrombocytopenia which she has had in the past. She is being admitted to monitored bed on progressive care unit and will have serial cardiac enzymes. She does take control pills so we will check a d-dimer because of complaint of severe shortness of breath. Past Medical History Past Medical History (Chronic Problems): Chronic Problems Gastric bypass surgery (Chronic) History of cholecystectomy (Chronic) Allergies diazoxide Allergy (Verified 12/19/18 18:32) Hives Home Medications: Ambulatory Orders Medication Instructions Recorded Norethindrone-E.estradiol-Iron 1 each PO DAILY 03/11/18 [Mibelas 24 Fe Chewable Tablet] Multivitamin [Multiple Vitamins] 1 each PO DAILY 08/09/18 Ondansetron [Zofran Odt] 4 mg PO Q8H PRN PRN #10 tablet 10/02/18 Aspirin [Aspirin, Baby] 81 mg PO DAILY@0800 12/19/18 Lisinopril [Zestril] 10 mg PO DAILY 12/19/18 Nitrofurantoin Macrocrystals 100 mg PO BID 12/19/18 [Macrobid] Surgical History: cholecystectomy, gastric bypass, - - . 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 He of cancer. Maternal History Items: - - Her mother had scleroderma and pulmonary hypertension. Review of Systems Constitutional: Reports: Anorexia. Denies: Chills, Fever, Weight Change HEENT: Denies: Head Aches, Sinus Congestion, Sinus Drainage Cardiovascular: Reports: Chest Pain. Denies: Edema, Light Headedness, Palpitations, Paroxysmal Noc. Dyspnea, Syncope Respiratory: Denies: Cough, Hemoptysis, Pleuritic Pain, Shortness of Breath, Shortness of breath at rest, Shortness of breath upon exertion, Sputum production, Wheezing Gastrointestinal: Reports: Nausea, - - Decreased appetite. Denies: Abdominal Pain, Vomiting Genitourinary: Reports: Dysuria, Hesitancy Musculoskeletal: Denies: Joint Pain, Joint Tenderness Skin: Denies: Jaundice, Rash, Wounds Neurological: Denies: Balance problems, Focal weakness, Numbness, Tingling, Se izures Psychiatric: Denies: Anxiety, Depression, Homicidal Ideations, Suicidal Ideations Hematologic/ Lymphatic: Denies: Easy Bruising, Easy Bleeding, Hx of blood clot VTE Information - Inpt Only VTE Present on Admission: No VTE Mechan Device Prophylaxis: Knee High KESHA Hose VTE Pharm Prophylaxis ordered?: Yes Patient Problems: Active and Suspected Problems Chest pain (Acute) - Physical Exam General: Alert, Oriented x3, Cooperative HEENT: Atraumatic, PERRLA, EOMI, Normocephalic Neck: Supple, No JVD, Negative Carotid Bruits Lungs: Clear to auscultation, Normal air movement Cardiovascular: Regular rate, No murmurs Abdomen: Bowel Sounds Present, Soft, Non Tender Extremities: No edema, Capillary Refill Less than 3 Seconds Skin: No rashes, No breakdown Musculoskeletal: No Tenderness to Palpation of Joints or Extremities Neurological: Cranial nerves II-XII grossly intact Psych/Mental Status: Normal Affect, Appropriate Vital Signs Temp Pulse Resp BP Pulse Ox 97.4 F L 86 14 143/99 H 100 12/19/18 18:32 12/19/18 20:02 12/19/18 20:02 12/19/18 20:02 12/19/18 20:02 Oxygen Delivery Method Room Air Weight: 205 lb Body Mass Index (BMI) 29.4 Laboratory Tests Past 24 Hrs 12/19/18 12/19/18 12/19/18 19:00 19:00 19:00 WBC 4.2 L RBC 3.51 L Hgb 11.9 L Hct 34.9 L MCV 99.4 H MCH 33.9 H MCHC 34.1 RDW 15.2 H RDW Differential 54.7 H Plt Count 110 L MPV 10.4 Immature Gran % (Auto) 0.200 Neut % (Auto) 60.4 Lymph % (Auto) 21.7 [place] % (Auto) 17.5 H Eos % (Auto) 0.2 Baso % (Auto) 0.0 Absolute Neuts (auto) 2.6 Absolute Lymphs (auto) 0.92 Total Counted Not Reportable Sodium 137 Potassium 4.2 Chloride 106 Carbon Dioxide 25.0 Anion Gap 6 BUN 7 Creatinine 1.01 Estim Creat Clear Calc 72.86 Est GFR (MDRD) Af Amer 75 Est GFR (MDRD) Non-Af 62 BUN/Creatinine Ratio 6.9 L Glucose 92 Calcium 9.2 Troponin I < 0.015 B-Natriuretic Peptide Pending Assessment/Plan All Active Problems Chest pain (Acute) Peptic ulcer disease (Resolved) Acute pancreatitis (Ruled-out) Impressions 1. atypical CP with negative serial cardiac enzymes 2. SOB associated with exertion in pt on BCP's 3. Hypertension 4. Thrombocytopenia-not new 5. History of gastric bypass surgery 6. Leukopenia-etiology undetermined 7. Elevated d-dimer at 3.69 with negative CTA of the chest Admit to a monitored bed on PCU ASA 81 mg PO daily SL NTG 0.4 mg PRN chest pain Serial Cardiac Enzymes Stat EKG PRN CP Chest XRAY Treadmill nuclear stress test in the AM if the cardiac enzymes are negative DVT prophylaxis ordered CTA of the chest done for elevated [id number] for PE or dissection. Code Visit OBSV E&M: 20094 Initial observation care L3
[2018-12-19 20:22] LABS: BNP,B-Type NATRIURETIC PEPTIDE 69.5 pg/mL (0-100)
--- NOTE | 2018-12-19 20:33 | EKG12_ITS ---
Test Reason : CP ADMIT Blood Pressure : / mmHG Vent. Rate : 077 BPM Atrial Rate : 077 BPM P-R Int : 134 ms QRS Dur : 116 ms QT Int : 424 ms P-R-T Axes : 014 006 007 degrees QTc Int : 479 ms Normal sinus rhythm Incomplete right bundle branch block Borderline ECG When compared with ECG of 22-NOV-2012 15:31, Incomplete right bundle branch block is now Present Confirmed by ANSHUL RIGGINS ([id number]), editor farm journal KIANA FUNG ([id number]) on 12/22/2018 2:00:14 PM Referred By: Maya Funes Confirmed By:ANSHUL RIGGINS
[2018-12-19 20:43] LABS: Magnesium 1.8 mg/dL (1.6-2.6)
[2018-12-19] MEDS: 0.9% Normal Saline 1,000 ML 100 ML IV (20:49)
[2018-12-19] MEDS: 0.9% NaCl Peripheral Flush Adult/Peds IV (20:49)
[2018-12-19 21:08] LABS: D-Dimer Quantitative (DVT/PE) 3.69 FEU/ug/m (0.27-0.49)
[2018-12-19 21:24] LABS: Bacteria 0 SEEN /hpf (None Seen); Mucous, Urine 0 SEEN /hpf (<or=2+); Red Blood Cells-Urine 0 SEEN /hpf (0-5); Squamous Epithelial Cells - UA 0 SEEN /hpf (5-10); White Blood Cells 0 SEEN /hpf (0-5)
[2018-12-19 21:32] LABS: Color, Urine Yellow (Yellow); Glucose, Dipstick Normal (Normal); Ketone-Dipstick 5 mg/dl (Negative); Leukocyte Esterase-Dipstick Negative /ul (Negative); Nitrite-Dipstick Negative (Negative); Occult Blood-Urine Negative /ul (Negative); Protein-Dipstick Negative (Negative); Specific Gravity, Urine 1.015 (1.002-1.030); Urine Bilirubin Dipstick Negative (Negative); Urine Clarity Clear (Clear); Urine Urobilinogen Normal (Normal)
--- NOTE | 2018-12-19 22:47 | CT_ITS ---
STUDY: CTA CHEST REASON FOR EXAM: Female, 48 years old. Elevated d-dimer RADIATION DOSAGE (If Supplied By Facility): CTDIvol = ( 13.82 ) mGy, DLP = ( 526.08 ) mGycm TECHNIQUE: The examination was performed with the intravenous administration of 100 IV Isovue 370. Post-processing of the angiographic images was performed, with multiplanar reformation and 3D reconstruction. Individualized dose optimization techniques were used for this CT. COMPARISON: None. FINDINGS: Breast implants. Normal enhancement of the main pulmonary artery and right and left pulmonary arteries. Normal enhancement of the bilateral peripheral pulmonary arteries. There is no demonstrated pulmonary embolism. Normal thoracic aorta and visualized great vessels. There is no demonstrated aortic dissection. Normal heart and pericardium. Normal mediastinum. Normal hilar regions. Normal visualized trachea and bronchi. The lungs are well expanded. Normal pulmonary parenchyma. Normal pleura. Normal chest wall structures. Normal osseous structures. Gastric bypass. Cholecystectomy clips. CT/CTA Chest W/WO Contrast IMPRESSION: Normal CTA chest examination, without a demonstrated pulmonary embolism or arterial dissection. Electronically Signed: Carroll Heaton MD at 23:48 EDT Tel , Service support ,
[2018-12-20] MEDS: MELATONIN 3 MG TABLET PO (00:03)
[2018-12-20 02:35] VITALS: BP 143/75; PULSE 84; RESP 16; TEMP 36.8; O2SAT 100
[2018-12-20 03:03] VITALS: PULSE 98
[2018-12-20] MEDS: Acetaminophen 325 MG Tablet 650 MG PO (03:03)
[2018-12-20 05:09] LABS: Absolute Lymphocyte Count 0.99 X10^3/ul (0.83-4.51); Absolute Neutrophil Count 2.1 X10^3/uL (2.0-7.7); Basophil# 0.01 X10^3/uL; Basophil% 0.3 % (0-1); Eosinophil# 0.02 X10^3/uL; Eosinophils% 0.5 % (0-5); Hematocrit 33.4 % (37-47); Hemoglobin 11.6 g/dl (12.0-15.0); Lymphocyte # 0.99 X10^3/ul (4.0); Lymphocyte % 26.1 % (19-41); Mean Corp Hgb Conc 34.7 g/gl (32-36); Mean Corpuscular Hgb 34.3 pg (27.0-32.0); Mean Corpuscular Volume 98.8 fL (81-99); Mean Platelet Vol. 10.7 fl (6.2-12.0); Monocyte# 0.62 X10^3/uL; Monocyte% 16.4 % (0-10); Neutrophil # 2.14 X10^3/uL (2.7-7.7); Neutrophil % 56.4 % (47-70); Platelet Count 113 K/mm3 (150-450); RBC Distribution Width CV 14.8 % (11.6-14.6); RBC Distribution Width SD 50.4 fl (35.1-43.9); Red Blood Count 3.38 M/mm3 (4.2-5.4); White Blood Count 3.8 K/mm3 (4.4-11.0)
[2018-12-20 05:11] LABS: POSITIVE COUNT NO; POSITIVE DIFFERENTIAL NO; POSITIVE MORPHOLOGY NO
[2018-12-20 05:13] LABS: Prothrombin Time (Protime)PT. 12.6 SECONDS (11.7-14.9)
[2018-12-20 05:14] LABS: Partial Thromboplast Time 25.4 Seconds (24.1-36.2)
[2018-12-20 05:44] LABS: Anion Gap 10 (5-15); BUN 7 mg/dL (7-18); Calcium,Total 8.4 mg/dL (8.5-10.1); Chloride 111 mmol/L (98-107); Creatinine, Serum 0.88 mg/dL (0.55-1.02); EST Glomerular Filtration Rate 72 mL/min (>60); Est Glom Filt Rate - Afr Amer 88 mL/min (>60); Estimated Creatinine Clearance 83.62 ml/min; Glucose 99 mg/dL (74-106); Potassium 3.7 mmol/L (3.5-5.1); Sodium Level 141 mmol/L (136-145)
--- NOTE | 2018-12-20 05:55 | EKG12_ITS ---
Test Reason : AM EKG Blood Pressure : / mmHG Vent. Rate : 056 BPM Atrial Rate : 056 BPM P-R Int : 128 ms QRS Dur : 116 ms QT Int : 472 ms P-R-T Axes : 033 028 018 degrees QTc Int : 455 ms Sinus bradycardia Incomplete right bundle branch block Borderline ECG When compared with ECG of 19-DEC-2018 20:46, MANUAL COMPARISON REQUIRED, DATA IS UNCONFIRMED Confirmed by ANSHUL RIGGINS ([id number]), order editor KIANA FUNG ([id number]) on 12/22/2018 2:01:30 PM Referred By: Maya Funes Confirmed By:ANSHUL RIGGINS
[2018-12-20 06:00] VITALS: BP 150/83; PULSE 73; RESP 18; TEMP 36.7; O2SAT 100
[2018-12-20] MEDS: Aspirin 81 MG TAB.CHEW PO (06:14)
[2018-12-20] MEDS: Lisinopril 10 MG Tablet PO (06:14)
[2018-12-20] MEDS: 0.9% NaCl Peripheral Flush Adult/Peds IV (06:17)
[2018-12-20 07:26] VITALS: O2SAT 99
[2018-12-20 10:00] VITALS: BP 132/82; PULSE 79; RESP 16; TEMP 36.7; O2SAT 100
--- NOTE | 2018-12-20 10:20 | STRESSREP_ITS ---
Stress Test Report Date: 12-20-18 Procedure: Exercise tolerance test/imaging study Indications: Chest pain Consent: Per the patient Procedure: The patient exercised on a Wero protocol for 7 minutes completing Stage II and 1 minute of Stage III achieving a peak heart rate of 162 bpm (94 % predicted maximal heart rate) with a peak blood pressure 156/80 mmHg and a peak MET capacity of 8 METs. The baseline ECG demonstrated sinus rhythm; right bundle branch block pattern. The peak exercise ECG demonstrated continued right bundle branch block pattern. There was a rare PAC during recovery. The functional capacity was considered average. There was no complaint of chest discomfort during exercise or recovery. The examination was discontinued secondary to dyspnea. Impression: 1. Technically adequate (percent predicted maximal heart rate greater than 85%) exercise tolerance test 2. Peak exercise ECG with continued right bundle branch block pattern 3. There was a rare PAC during recovery 4. Nuclear images pending Myocardial perfusion imaging study: Technique: The patient was injected with 14.2 mCi of technetium 99m Cardiolite and sub sequently rest SPECT Cardiolite nuclear imaging was obtained in the horizontal long, vertical long, and short axis views. The patient exercised on a Wero protocol for 7 minutes completing Stage II and 1 minute of Stage III achieving a peak heart rate of 162 bpm (94 % predicted maximal heart rate) with a peak blood pressure 156/80 mmHg and a peak MET capacity of 8 METs. The patient was injected with 44.5 mCi of technetium 99m Cardiolite and subsequently stress SPECT Cardiolite nuclear imaging was obtained in the horizontal long, vertical long, and short axis views. A gated Cardiolite study at peak stress was obtained. Interpretation: Rest and stress SPECT Cardiolite nuclear imaging status post realignment, normalization, and attenuation correction, demonstrates the appearance of relati ve uniform tracer uptake and myocardial perfusion appearing within normal limits. There is end systolic thickening and brightening. The gated Cardiolite study demonstrates myocardial thickening and inward wall motion. The reported LVEF is 74 %. Impression: 1. Rest and stress SPECT Cardiolite nuclear imaging demonstrate relative uniform tracer uptake and myocardial perfusion appearing within normal limits. 2. The gated Cardiolite study reports an LVEF of 74 %. This note was generated with [employer]pex Guard[employer] software. It may contain incorrect words, spelling, and punctuation that were not noted in checking the note before signing.
[2018-12-20] MEDS: Enoxaparin 40 MG/0.4 ML Syringe SC (10:22)
[2018-12-20] MEDS: Pantoprazole Sodium 40 MG Tablet PO (10:22)
--- NOTE | 2018-12-20 10:43 | DCINST_ITS ---
- Discharge Diagnoses Current Active Problems: Current Active and Chronic Problems Chest pain (Acute) You will use the following diet at home:: No restrictions Your food should be the consistency of: Regular Your liquids should be the consistency of: Regular/Thin Discharge Activity: Return to Normal Activity Weight Bearing Status: Full weight bearing Allergies/Adverse Reactions: Allergies diazoxide Allergy (Verified 12/19/18 18:32) Hives Medications to take at Discharge Norethindrone-E.estradiol-Iron [Mibelas 24 Fe Chewable Tablet] 1 each PO DAILY 03/11/18 Multivitamin [Multiple Vitamins] 1 each PO DAILY 08/09/18 Ondansetron [Zofran Odt] 4 mg PO Q8H PRN PRN #10 tablet 10/02/18 Aspirin [Aspirin, Baby] 81 mg PO DAILY@0800 12/19/18 Lisinopril [Zestril] 10 mg PO DAILY 12/19/18 Nitrofurantoin Macrocrystals [Macrobid] 100 mg PO BID 12/19/18 Primary Care Physician: Louis Hernandez MD [Primary Care Provider] - Please follow up with your Primary Care Physician in: in 2-3 weeks Test Results: Test results from this visit will be discussed in further detail at your follow- up appointment, if applicable.
[2018-12-20 11:45] VITALS: BP 132/82; PULSE 79; RESP 16; TEMP 36.7; O2SAT 100
--- NOTE | 2018-12-22 09:10 | PCM.DC.SUM ---
Discharge Date and Diagnosis Date of Admission: 12/19/18 Date of Discharge: 12/20/18 - Primary Discharge Diagnosis #1 musculoskeletal chest pain #2 dyspnea on exertion-etiology unknown - Secondary Discharge Diagnosis Chronic Problems Gastric bypass surgery (Chronic) History of cholecystectomy (Chronic) Hospital Course and Treatment Operations: None Procedures: Nuclear stress test Summary of Care Provided: The patient is a 48 year old F the emergency room at [facility] chief complaint of precordial chest pain along with dyspnea on exertion. Patient was due to have a work-up as an outpatient including an echo and a stress test but came to the ER for evaluation due to her complaints. Evaluation in the ER was unremarkable-troponin was normal, EKG showed right bundle branch block, chest x-ray was unremarkable, patient had elevated d-dimer and underwent a chest CTA which was unremarkable. Patient was placed in observation status on PCU, enzymes were cycled they remain negative, patient underwent a nuclear stress test which was negative for reversible ischemia. On 12/20/2018, patient was seen and examined: On examination she appeared in good health and spirits. Vital signs as documented. Skin warm and dry and without overt rashes. Neck without JVD. Lungs clear. Heart exam notable for regular rhythm, normal sounds and absence of murmurs, rubs or gallops. Abdomen unremarkable and without evidence of organomegaly, masses, or abdominal aortic enlargement. Extremities nonedematous. Neuro: Cranial nerves II through XII are grossly intact, no focal motor deficits were noted, sensation to light touch and pinprick is intact. Psych: Patient is alert and oriented x3, she does not appear anxious or depressed On 12/20/2018, patient was seen and examined and felt to be in stable condition for discharge home - Physical Exam Vital Signs Temp Pulse Resp BP Pulse Ox 98.0 F 79 16 132/82 H 100 12/20/18 11:45 12/20/18 11:45 12/20/18 11:45 12/20/18 11:45 12/20/18 11:45 Oxygen Delivery Method Room Air Weight: 95.9 kg Body Mass Index (BMI) 30.3 Intake and Output for Last 24 Hours 12/20/18 12/21/18 12/22/18 23:59 23:59 23:59 Intake Total 608 / 608 Balance 608 / 608 Microbiology Past 72 Hours 12/19/18 21:15 Urine Culture - Preliminary Urine, Clean Catch Mixed Gram Positive Organisms Discharge Activity: Return to Normal Activity Weight Bearing Status: Full weight bearing Home Medications: Medications to take at Discharge Norethindrone-E.estradiol-Iron [Mibelas 24 Fe Chewable Tablet] 1 each PO DAILY 03/11/18 Multivitamin [Multiple Vitamins] 1 each PO DAILY 08/09/18 Ondansetron [Zofran Odt] 4 mg PO Q8H PRN PRN #10 tablet 10/02/18 Aspirin [Aspirin, Baby] 81 mg PO DAILY@0800 12/19/18 Lisinopril [Zestril] 10 mg PO DAILY 12/19/18 Nitrofurantoin Macrocrystals [Macrobid] 100 mg PO BID 12/19/18 Primary Care Physician: Louis Hernandez MD [Primary Care Provider] - Please follow up with your Primary Care Physician in: in 2-3 weeks Disposition: Home Minutes spent on discharge:: 31 Patient Condition:: Stable Medical Necessity - Tobacco Use Smoking Status: Never smoker Tobacco Use: Non-smoker Meaningful Use Info Meaningful Use Diagnoses (Choose all that apply): None applicable Code Visit OBSV E&M: 76067 Observation care discharge
== END 2018-12-20 10:44 | disposition home or self-care (01) ==
LOC: ED 19:09 → PCU 20:10
PROVIDERS: Admitting Provider Internal Medicine; Emergency Provider Emergency Medicine; Family Provider Family Medicine; PCP Family Medicine; Referring Provider Internal Medicine; Visit Provider Internal Medicine
DX: R07.89 Other chest pain (principal); R06.09 Other forms of dyspnea; D69.6 Thrombocytopenia, unspecified; Z98.84 Bariatric surgery status; Z79.899 Other long term (current) drug therapy; Z79.82 Long term (current) use of aspirin; Z82.49 Family history of ischemic heart disease and other diseases of the circulatory system; Z87.11 Personal history of peptic ulcer disease
CPT/HCPCS: 36415; 71045; 71275; 78452; 80048; 81001; 83735; 83880; 84484; 85025; 85379; 85610; 85730; 87086; 87088; 93005; 93017; 96361; 96365; 96372; 99218; 99285; A9500; J7030; Q9967; A4216; G0378

== ENCOUNTER → 2019-01-17 14:47 | Outpatient (CLI) | payer OTHER, SELFPAY ==
[2019-01-17 13:34] VITALS: BMI 30.4
[2019-01-17 16:34] LABS: Absolute Lymphocyte Count 1.24 X10^3/uL (0.83-4.51); Absolute Neutrophil Count 3.8 X10^3/uL (2.0-7.7); Basophil# 0.03 X10^3/uL; Basophil% 0.5 % (0-1); Eosinophil# 0.03 X10^3/uL; Eosinophils% 0.5 % (0-5); Hematocrit 36.9 % (37-47); Hemoglobin 12.1 g/dL (12.0-15.0); Lymphocyte # 1.24 X10^3/ul (4.0); Lymphocyte % 22.5 % (19-41); Mean Corp Hgb Conc 32.8 g/dL (32-36); Mean Corpuscular Hgb 33.3 pg (27.0-32.0); Mean Corpuscular Volume 101.7 fL (81-99); Mean Platelet Vol. 11.5 fl (6.2-12.0); Monocyte# 0.42 X10^3/uL; Monocyte% 7.6 % (0-10); NRBC Flagged by Analyzer 0 % (0-5); Neutrophil # 3.79 X10^3/uL (2.7-7.7); Neutrophil % 68.7 % (47-70); Platelet Count 177 K/mm3 (150-450); RBC Distribution Width CV 13.6 % (11.6-14.6); RBC Distribution Width SD 50.6 fl (35.1-43.9); Red Blood Count 3.63 M/mm3 (4.2-5.4); White Blood Count 5.5 K/mm3 (4.4-11.0)
[2019-01-17 16:38] LABS: Internal QC Validated? YES +Cl - CLEAR BKGD; Pregnancy, Serum, hCG Quali. NEGATIVE Negative
[2019-01-17 16:50] LABS: Prothrombin Time (Protime)PT. 12.8 SECONDS (11.7-14.9)
[2019-01-17 16:52] LABS: Anion Gap 8 (5-15); BUN 9 mg/dL (7-18); BUN/Creat Ratio 9.2 RATIO (10-20); Calcium,Total 9.1 mg/dL (8.5-10.1); Chloride 107 mmol/L (98-107); Creatinine, Serum 0.98 mg/dL (0.55-1.02); EST Glomerular Filtration Rate 64 mL/min (>60); Est Glom Filt Rate - Afr Amer 78 mL/min (>60); Glucose 86 mg/dL (74-106); Potassium 3.9 mmol/L (3.5-5.1); Sodium Level 141 mmol/L (136-145)
== END ==
PROVIDERS: Family Provider Family Medicine; PCP Family Medicine; Referring Provider Internal Medicine Cardiovascular Disease; Visit Provider Internal Medicine Cardiovascular Disease
DX: R07.9 Chest pain, unspecified (principal); I10 Essential (primary) hypertension; I45.10 Unspecified right bundle-branch block; R06.02 Shortness of breath
CPT/HCPCS: 36415; 80048; 84703; 85025; 85610

== ENCOUNTER 2019-01-20 06:52 | Day surgery (SDC) | payer OTHER, SELFPAY ==
[2019-01-17 13:34] VITALS: BMI 30.4
[2019-01-19 07:28] VITALS: BMI 30.5
--- NOTE | 2019-01-20 08:44 | CL.D_ITS ---
Patient Name: GENO MALIK Study Date: 01/20/2019 Performing: Baudilio Steiner MD Ht: 70.07 inches 178 cm : 1970 Wt: 213 lbs 96.615 kg Age: 48 Gender: female BSA: 2.15 PROCEDURE(S) PERFORMED OO70-HBV/COR/LV CLINICAL PROFILE AND INDICATIONS Indications: Suspected CAD Heart Failure: None Stress/Imaging Date: 12/20/2018Stress Test with SPECT MPI: Negative Angina Classification Anginal Classification w/in 2 Weeks: No symptoms CAD Presentations: Other: Dyspnea on exertion, diaphoresis Comorbidities/Risk Factors: Hypertension Family History of Premature CAD CONCLUSIONS Normal LV size, wall motion,and systolic function Normal coronary arteries RECOMMENDATIONS Management as per referring Placing Judge D/c asa and plavix; start toprol xl 25mg po daily. Manual sheath removal. DESCRIPTION OF PROCEDURE The patient arrived to the procedure lab. The risks and benefits of the procedure as well as a full d escription of our services here and current unavailability of surgical backup were fully explained to the patient and/or their significant other prior to the catheterization. The Timeout was completed, verifying the correct patient and procedure. The patient's procedural site was prepped and draped in the usual fashion. Local anesthetic was given subcutaneously to right groin region with Lidocaine 2%. Using a modified Seldinger technique, arterial access was obtained via the right femoral artery, a 4 Fr sheath was inserted Left Coronary Artery selective angiography was performed in multiple views us ing a 4 Fr. JL5 catheter. Right Coronary Artery selective angiography was then performed in multiple views using a 4 Fr. 3DRC catheter. Left Ventriculography was performed in HORVATH projection using a 4 Fr . Pigtail catheter. LV to AO pullback pressures were then recorded.The arterial sheath was pulled and manual compression applied until hemostasis is achieved. CORONARY ANGIOGRAPHY DOMINANCE: Right Dominant LEFT HEART ASSESSMENT Left Ventricular Ejection Fraction: by LV Gram 75 % Normal LV wall motion Normal Left Ventricular systolic function Normal Left Ventricular systolic function LVEDP: 14 mmHg LEFT MAIN: Angiographically normal LEFT ANTERIOR DESCENDING ARTERY: Angiographically normal CIRCUMFLEX ARTERY: Angiographically normal RIGHT CORONARY ARTERY: Angiographically normal COMPLICATIONS No Complications PROCEDURE MEDICATIONS Versed 1 mg IV Oxygen: 2 L/min via nasal cannula SUMMARY OF HEMODYNAMIC DATA Time AIR REST ECG 07:07:50 AO 131/72 (98) SA 08:27:29 LV 142/-20, 15 08:34:21 LV 138/-20, 15 08:34:27 LVp 142/75, 83 08:34:40 AOp 140/77 (107) 08:34:45 Signed By Baudilio Steiner MD On 01/20/2019 08:43:40 Baudilio Steiner MD
--- NOTE | 2019-01-20 10:02 | HP.PCM_ITS ---
Problem List (1) Chest pain Status: Acute Qualifiers: Comment: Admitted to [facility] 12/19/18 overnight: stress test and echo neg, enzymes neg. EKG RBB, one showed prolonged QT. (2) Complete right bundle branch block Status: Acute (3) Palpitations Status: Acute (4) Shortness of breath Status: Acute (5) Essential hypertension Status: Chronic History and Physical Date of Admission: 01/20/19 [facility] [address] [place] [address] OFFICE VISIT Date of Service: 01/17/19 MR#:[id number] Name: GENO MALIK #:[id number] : 1970 Provider:Baudilio Steiner MD Age/Sex: 48/F [place] [place] Status:Signed HPI HPI History of Present Illness Details: Mrs. Ansari is a very pleasant 48-year-old nondiabetic female, with a history of obesity, hypertension, status post gastric bypass surgery in [place] in 2001, status post Karen-en-Y with subsequent pancreatitis on several acute, positive family history of coronary disease in her father who had bypass at age 50 although he was a very heavy smoker of 2 packs/day. She does have a brother with hypertension patient was referred to our office after she was admitted in December 2018 with new onset chest pain. Apparently she was ruled out for myocardial infarction, and underwent a treadmill/MPI on 12/20/2018. At that time she went 8 METS's, had no exertional chest pain, had no evidence of ischemia. In addition she underwent an echocardiogram on 12/21/2018 at the [facility] showed an ejection fraction of 75%, normal RV size. In addition she underwent CT scan of her chest on that admission which was negative for pulmonary emboli. Her EKG dated 12/20/2018 showed sinus bradycardia, right bundle branch block, no acute changes. With her history, the patient is perimenopausal, and has had several episodes prior to her admission of substernal chest pain, which she describes as a heaviness, with associated shortness of breath and dyspnea. In addition she felt very overheated, and could not catch her breath on each occasion. Appa rently she was rather hypertensive during these events and her blood pressure has improved with lisinopril therapy. Since discharge, the patient denies any exertional chest pain, angina, does complain of dyspnea on exertion although it is of less intensity. She denies any palpitations, presyncope or syncope. In our office today her blood pressure is 142/80, pulse is 60 and regular. EKG is as above. Lipids dated 12/19/2018 showed an HDL of 115, and an LDL of 74. Intake Vital Signs 01/17/19 Height 5 ft 10 in 01/17/19 Weight: 212 lb 01/17/19 Body Mass Index (BMI) 30.4 01/17/19 Blood Pressure 142/80 H 01/17/19 Blood Pressure Location Lt brachial 01/17/19 Blood Pressure Position Sitting 01/17/19 Respiratory Rate 16 01/17/19 Pulse Rate 60 01/17/19 Pulse Source Auscultation Intake Visit Reasons: ref [facility]. abn ekg. [facility] ER Audit Lead Required: No Accompanied by: None Is patient in pain?: No Allergies diazoxide Allergy (Verified 01/17/19 13:39) Hives Medications Multivitamin [Multiple Vitamins] 1 ea PO DAILY 08/09/18 [History Confirmed 01/12/19] Ondansetron [Zofran Odt] 4 mg PO Q8H PRN PRN #10 tab 10/02/18 [Rx Confirmed 01/12/19] Lisinopril [Zestril] 10 mg PO DAILY 12/19/18 [History Confirmed 01/12/19] cyanocobalamin (vit B-12) 5,000 mcg/mL sublingual drops 5,000 mcg SUBLINGUAL DAILY 01/11/19 [History Confirmed 01/12/19] aspirin 81 mg tablet,delayed release 81 mg PO DAILY #30 tab 01/17/19 [Rx Confirmed 01/17/19] clopidogrel 75 mg tablet 75 mg PO DAILY #30 tab 01/17/19 [Rx Confirmed 01/17/19] norethindrone 1 mg-e. estradiol 20 mcg (24)-iron 75 mg (4) chew tablet 1 tab PO DAILY 01/17/19 [History Confirmed 01/11/19] PFSH Medical History Palpitations (Acute) Complete right bundle branch block (Acute) Chest pain (Acute) Shortness of breath (Acute) Essential hypertension (Chronic) Osteoarthritis of knee (Chronic) Surgical History History of abdominoplasty (Chronic 2012) History of augmentation of both breasts (Chronic 2011) History of gastric bypass (Chronic 2001) history of bilateral brachioplasty (Chronic) History of cholecystectomy (Chronic) Family History Father Pancreatic cancer CAD (coronary artery disease) Diabetes Mother Multiple myeloma Pulmonary fibrosis Social History (Updated 01/17/19 @ 14:22 by Baudilio Steiner MD) Smoking Status: Never smoker alcohol intake: current alcohol intake frequency: a few times a month Alcohol type: wine substance use type: does not use caffeine: Yes Type: tea Number of servings: 2 ROS Const Const: Negative for fatigue, weakness, headache(s), frequent falls, difficulty sleeping or excessive sweating Eyes Eyes: Negative for loss of peripheral vision, transient loss of vision, blurry vision, double vision or tunnel vision ENT ENT: Negative for headache(s), dizziness, Nosebleed/epistaxis or balance problems Cardio Chest Pain: Yes Frequency: weekly (2-3 times per week) Character: sharp, squeezing Onset: other (randomly) Location: mid sternal, right chest Duration: minutes (15 minutes) Palpitations: Yes (Occurs about 1 time per week) feels like its: fast Edema: None Muscle aches with walking: None Resp Respiratory: Positive for SOB with activity and SOB at rest (Usually occurs with chest pain or palpitations); negative for SOB orthopnea\SOB lying down, Cough or paroxysmal nocturnal dyspnea GI GI: Negative nausea, vomiting, heartburn or black,tarry stools : Negative for hematuria Musc Musc: Negative for muscle aches/ myalgia, muscle weakness, joint pain or balance problems Skin Skin: Negative non-healing lesions, rash or unusual bruising Neuro Neuro: Positive for lightheadedness (occurs with change in position); negative for dizziness, near syncope, syncope, frequent falls, headache(s), weakness, blurry vision, double vision or lack of coordination Jose Hematologic/Lymphatic: Negative for easy bleeding or easy bruising Endo Endo: Negative for fatigue, excessive sweating or increased thirst/drinking Psych Psych: Negative for anxiety or depression Allergy Allergy/Immunology: Negative for hives, Negative for rash Cardiology Exam Const Appearance: cooperative, healthy appearing and no acute distress Nutritional Appearance: well nourished Orientation: alert, oriented x3 and oriented to person Head Head: normal to inspection, normocephalic and atraumatic Nose: external nose normal Face and Sinus: face symmetric Mouth: oral mucosae normal Eyes General: appearance normal, both eyes and all related structures Eyelids: eyelids normal Conjunctivae: conjunctivae normal Pupils: PERRL and normal by confrontation EOM: EOM intact bilaterally Neck Neck: normal visual inspection and full ROM Carotids: normal carotid upstroke Chest Chest inspection: normal inspection of the chest Auscultation: Bilateral: Clear to Auscultation Cardio Palpation: normal PMI Rate: regular rate Rhythm: regular rhythm Heart sounds: S1 normal and S2 normal GI GI: normal to inspection, no hepatosplenomegaly and bowel sounds present Neuro General: alert, awake, oriented x3, CN's II-XI intact bilaterally and moves all extremities Skin Skin: no rashes or lesions noted Extremities Pulses: Normal: Right Femoral Pulse, Left Femoral Pulse, Right Dorsalis Pedis Pulse, Left Dorsalis Pedis Pulse, Right Posterior Tibial Pulse, Left Posterior Tibial Pulse, Right Radial Pulse, Left Radial Pulse Lower Extremity Edema: None: Bilateral Psych Psychological: normal affect Assessment & Plan 1. Chest pain, unspecified type R07.9 Admitted to [facility] 12/19/18 overnight: stress test and echo neg, enzymes neg. EKG RBB, one showed prolonged QT. Plan 1. Chest pain: The patient has had several episodes of exertional chest pain with associated shortness of breath and diaphoresis. Patient was recently and had an extensive cardiac work-up including a CTA of her chest which was negative for pulmonary embolism or pulmonary issues, 2D echo with Doppler which demonstrated normal LV size and function, as well as a walking nuclear stress test at a fairly decent workload of 8 METS, no exertional anginal symptoms however she did have dyspnea on exertion which may be an anginal equivalent, and no evidence of overt abnormalities on her imaging component. Given the patient's strong positive family history in her father who had bypass surgery in his 50s, although he was a heavy smoker, given the patient's concern of her own cardiac health, and after much discussion with the patient regarding options of medical therapy versus invasive evaluation with a cardiac catheteri zation, the patient is chosen to proceed with left heart catheterization for peace of mind that her coronary arteries are not the source of her symptoms. The risks/benefits of the procedure were thoroughly explained to the patient including specific attention to lack of on-site surgical back-up, and the patient is agreed to proceed. We will start the patient back on baby aspirin 81 mg a day, loaded with Plavix 3 mg x 1, followed by 75 mg a day. She will be arranged for cardiac catheterization. All questions answered Orders Orders: 12 Lead EKG performed by BMS Today Left Heart Cath/COR/LV Percut Today Basic Metabolic Profile (BMP) Today Prothrombin Time w/INR Today CBC W/Diff, Automated Today Chest PA and Lateral Today 2. Essential hypertension I10 Plan . 2. Hypertension: It appears the patient's blood pressure is much better controlled with low-dose lisinopril. Recommend continuing lisinopril 10 mg p.o. daily. 3. Menopausal status: The patient signs and symptoms may be perimenopausal including the hot flashes and difficulty with breathing. This may subside as she passes through menopause. 4. Hyperlipidemia: Her LDL and HDL cholesterol are fairly well-controlled given her risk factors. Should she have any significant coronary disease we can consider antilipid therapy. 4. Return office in 6 months. This note was generated using a voice recognition system and there may be incorrect words, spelling or punctuation that were not noted when reviewing the office note prior to saving. Orders Orders: Left Heart Cath/COR/LV Percut Today Plan Detail Other Orders Orders: 12 Lead EKG performed by BMS Today I45.10, R06.02 Left Heart Cath/COR/LV Percut Today I45.10, R06.02 Basic Metabolic Profile (BMP) Today I45.10, R06.02 Prothrombin Time w/INR Today I45.10, R06.02 CBC W/Diff, Automated Today I45.10, R06.02 Chest PA and Lateral Today I45.10, R06.02 Other Medications New: cyanocobalamin (vit B-12) (Vitamin B-12) 5,000 mcg sublingual DAILY clopidogrel Take four tablets today and then one tablet by mouth daily 75 mg PO DAILY 30 tabs 3RF aspirin (Adult Low Dose Aspirin) 81 mg PO DAILY 30 tabs 3RF Follow Up +6M (Jatin) Coding Level of Care Code Off vis,new,level 4 Diagnoses Chest pain, unspecified type R07.9 Chest pain type: unspecified Essential hypertension I10 Coding Level of Care Code Off vis,new,level 4 Diagnoses Chest pain, unspecified type R07.9 Chest pain type: unspecified Essential hypertension I10 Supplemental Info Supplemental Information Labs LDL Cholesterol 53 mg/dL (0-130) 08/11/18 HDL Cholesterol 62 mg/dL (40-) 08/11/18 Triglycerides 84 mg/dL (-199) 08/11/18 VLDL Cholesterol 17 mg/dL (5-40) 08/11/18 Diagnostics Electrocardiogram 12/20/18 Stress Test Nuclear Medicine 12/20/18 Stress Test 12/20/18 Abdomen Ultrasound 08/10/18 Chest X-Ray 12/19/18 01/17/19 1422<Electronically signed by Baudilio Steiner MD> Date Baudilio Steiner MD Addendum: Patient was re-seen and reexamined on the date of procedure 01/20/2019. No interim changes noted from previous visit on 01/17/2019. We will proceed with cardiac catheterization. Cosigner Signature:Date (if applicable) CC: Louis Hernandez MD ~
== END 2019-01-20 13:00 | disposition home or self-care (01) ==
PROVIDERS: Family Provider Family Medicine; PCP Family Medicine; Referring Provider Internal Medicine Cardiovascular Disease; Visit Provider Internal Medicine Cardiovascular Disease
DX: R07.9 Chest pain, unspecified (principal); R06.02 Shortness of breath; I45.10 Unspecified right bundle-branch block; I10 Essential (primary) hypertension; Z98.84 Bariatric surgery status; Z82.49 Family history of ischemic heart disease and other diseases of the circulatory system; R61 Generalized hyperhidrosis; E78.5 Hyperlipidemia, unspecified
CPT/HCPCS: 93458; 99152; J7040; Q9967; C1769; C1894

== ENCOUNTER → 2019-07-07 12:05 | Outpatient (CLI) | payer OTHER, SELFPAY ==
[2019-01-19 07:28] VITALS: BMI 30.5
--- NOTE | 2019-07-07 12:11 | CT_ITS ---
STUDY: CT ABDOMEN AND PELVIS WITH CONTRAST REASON FOR EXAM: Female, 49 years old. LUQ PAIN, NAUSEA/VOMITING AFTER EATING -- DONALDO G-BILAT BREAST IMPLANTS,GB,APPY,GASTRIC Bypass, abdominoplasty RADIATION DOSAGE (If Supplied By Facility): CTDIvol = ( 15.73 ) mGy, DLP = ( 1194.72 ) mGycm TECHNIQUE: Transaxial images were obtained from the dome of the diaphragm to the symphysis pubis without oral contrast. IV 100mL Isovue-300 was administered. Sagittal and coronal images were reconstructed. Individualized dose optimization techniques were used for this CT. COMPARISON: Comparison is made with prior examination dated October 02, 2018. FINDINGS: Stable appearing bilateral breast implants. The visualized lung bases are unremarkable. The visualized portions of the heart are within normal limits. There is decreased attenuation of the liver consistent with steatosis. There are surgical clips in the gallbladder fossa consistent with a prior cholecystectomy. Normal spleen. Normal pancreas. Normal bilateral adrenal glands. Normal right kidney. Normal left kidney. The patient is status post subtotal gastrectomy and gastric bypass surgery. Normal small intestine. Normal colon. There are surgical clips in the region of the appendix consistent with a prior appendectomy. Normal abdominal aorta. Normal inferior vena cava. Normal retroperitoneum. Normal urinary bladder. There is a 2.2 cm x 2 cm cyst in the left ovary. There is evidence of prior abdominoplasty. There are diffuse degenerative changes of the visualized lumbar spine. CT/Abdomen/Pelvis WITH Contrast IMPRESSION: 2.2 cm x 2 cm cyst in the left ovary. Fatty infiltration of the liver. Electronically Signed: Walt Gonsales, at 13:19 EST , Service support ,
[2019-07-07 12:55] LABS: Lipase 553 U/L (73-393)
== END ==
PROVIDERS: PCP Family Medicine; Referring Provider Family Medicine; Visit Provider Family Medicine
DX: R11.2 Nausea with vomiting, unspecified (principal)
CPT/HCPCS: 74177; 83690; Q9967

== ENCOUNTER → 2019-07-18 11:03 | Outpatient (CLI) | payer OTHER, SELFPAY ==
[2019-01-19 07:28] VITALS: BMI 30.5
--- NOTE | 2019-07-18 11:05 | BI_ITS ---
MAMMOGRAPHY - BILATERAL SCREENING REASON FOR EXAM: Female, 49 years old. Routine annual screening examination. PERTINENT HISTORY: Non-contributory. History of bilateral breast implants. TECHNIQUE: Digital bilateral breast noah (3D mammographic acquisition) in the CC and MLO projections. 2-D mediolateral oblique (MLO) and craniocaudad (CC) views of both breasts were obtained. CAD: Full Field Digital Mammography with Computer Added Detection was performed. COMPARISON: Comparison is made with prior examination January 13, 2018 and June 01, 2016. FINDINGS: Breast Composition: There are scattered areas of fibroglandular density. There are no dominant masses or suspicious calcifications. Stable appearance of the bilateral breast implants. No other significant abnormalities are identified. There has been no significant change since the prior study. BI/SCREEN MAMM (CAD) W/NOAH BILAT IMPRESSION: Stable bilateral screening mammogram. Yearly follow-up mammogram recommended. (A) ASSESSMENT CATEGORY: BIRADS Category 2: Benign. A letter regarding these results will be sent to the patient by the facility within 30 days. Approximately 10% of breast cancers are not detected by mammography. A normal mammogram should not delay biopsy of a clinically suspicious abnormality. [id number] Electronically Signed: Walt Gonsales, at 12:30 EST , Service support ,
== END ==
LOC: OPBI 11:04
PROVIDERS: PCP Family Medicine; Referring Provider Obstetrics & Gynecology Gynecology; Visit Provider Obstetrics & Gynecology Gynecology
DX: Z12.31 Encounter for screening mammogram for malignant neoplasm of breast (principal)
CPT/HCPCS: 77063; 77067

== ENCOUNTER 2019-07-19 17:36 | Emergency (ER) | payer OTHER, SELFPAY ==
[2019-01-19 07:28] VITALS: BMI 30.5
[2019-07-19] VITALS (8 sets, daily range): BP systolic 101–163; BP diastolic 70–95; PULSE 70–103; RESP 14–16; TEMP 36.4–36.7; O2SAT 98–100; BMI 33.2
--- NOTE | 2019-07-19 17:54 | EKG12_ITS ---
Test Reason : CP Blood Pressure : / mmHG Vent. Rate : 101 BPM Atrial Rate : 101 BPM P-R Int : 150 ms QRS Dur : 128 ms QT Int : 366 ms P-R-T Axes : 037 014 -04 degrees QTc Int : 474 ms Sinus tachycardia Right bundle branch block Abnormal ECG Confirmed by LIDIA CLARKE, ANETTE ([id number]), pictures editor MARISELA FIGUEREDO ([id number]) on 07/24/2019 10:34:56 AM Referred By: ELLA Confirmed By:NAYANA MURILLO MD
--- NOTE | 2019-07-19 17:55 | RAD_ITS ---
STUDY: X-RAY CHEST REASON FOR EXAM: Female, 49 years old. CHEST PAIN TECHNIQUE: Single frontal view of the chest. COMPARISON: December 19, 2018 FINDINGS: Surgical clips are noted in both axilla. Cardiac silhouette unremarkable. Pulmonary vascularity unremarkable. Aorta unremarkable. No focal airspace opacities. No pleural effusions. Upper abdomen unremarkable. Osseous structures intact. No pneumothorax. RAD/Chest 1 View (Portable) IMPRESSION: No acute cardiopulmonary findings Electronically Signed: Carlos Ames, at 19:06 EST Tel , Service support ,
--- NOTE | 2019-07-19 18:04 | NURSING ---
MED SURG OBS PAINTSIL WEAKNESS, FALL, BACK PAIN, RT HIP PAIN
[2019-07-19 18:12] LABS: Absolute Lymphocyte Count 1.83 X10^3/uL (0.83-4.51); Absolute Neutrophil Count 5.1 X10^3/uL (2.0-7.7); Basophil# 0.02 X10^3/uL; Basophil% 0.3 % (0-1); Eosinophil# 0.07 X10^3/uL; Eosinophils% 0.9 % (0-5); Hematocrit 36.4 % (37-47); Hemoglobin 11.8 g/dL (12.0-15.0); Lymphocyte # 1.83 X10^3/ul (4.0); Lymphocyte % 24.1 % (19-41); Mean Corp Hgb Conc 32.4 g/dL (32-36); Mean Corpuscular Hgb 34.6 pg (27.0-32.0); Mean Corpuscular Volume 106.7 fL (81-99); Mean Platelet Vol. 11.3 fl (6.2-12.0); Monocyte# 0.55 X10^3/uL; Monocyte% 7.2 % (0-10); NRBC Flagged by Analyzer 0 % (0-5); Neutrophil % 67.2 % (47-70); Platelet Count 142 K/mm3 (150-450); RBC Distribution Width SD 58.2 fl (35.1-43.9); Red Blood Count 3.41 M/mm3 (4.2-5.4); White Blood Count 7.6 K/mm3 (4.4-11.0)
[2019-07-19 18:20] LABS: Anion Gap 7 (5-15); BUN 9 mg/dL (7-18); BUN/Creat Ratio 9.3 RATIO (10-20); Calcium,Total 8.7 mg/dL (8.5-10.1); Chloride 103 mmol/L (98-107); Creatinine, Serum 0.97 mg/dL (0.55-1.02); EST Glomerular Filtration Rate 65 mL/min (>60); Est Glom Filt Rate - Afr Amer 78 mL/min (>60); Estimated Creatinine Clearance 75.03 ml/min; Glucose 80 mg/dL (74-106); Potassium 3.9 mmol/L (3.5-5.1); Sodium Level 134 mmol/L (136-145)
[2019-07-19] MEDS: Aspirin 81 MG TAB.CHEW 324 MG PO (18:59)
[2019-07-19] MEDS: Nitroglycerin SL (ED/IMG/CATH) 0.4 MG TABLET SUBLINGUAL ×2 (19:00→19:05)
[2019-07-19 20:02] LABS: D-Dimer Quantitative (DVT/PE) 0.99 FEU/ug/m (0.27-0.49)
--- NOTE | 2019-07-19 20:03 | CT_ITS ---
STUDY: CTA CHEST REASON FOR EXAM: Female, 49 years old. MID/LT SIDE CP, NAUSEA, RECENT TRAVEL, ELEVATED D-DIMER. RADIATION DOSAGE (If Supplied By Facility): CTDIvol = ( 13.82 ) mGy, DLP = ( 526.37 ) mGycm TECHNIQUE: The examination was performed with the intravenous administration of IV 100mL Isovue-300. Post-processing of the angiographic images was performed, with multiplanar reformation and 3D reconstruction. Individualized dose optimization techniques were used for this CT. COMPARISON: December 19, 2018. And December 22, 2012 FINDINGS: Normal enhancement of the main pulmonary artery and right and left pulmonary arteries. Normal enhancement of the bilateral peripheral pulmonary arteries. There is no demonstrated pulmonary embolism. Normal thoracic aorta and visualized great vessels. There is no demonstrated aortic dissection. Normal heart and pericardium. Normal mediastinum. Normal hilar regions. Normal visualized trachea and bronchi. The lungs are well expanded. Normal pulmonary parenchyma. Stable 3 mm right lower lobe pleural-based nodule dating back to December 22, 2012. Normal pleura. Normal chest wall structures. Bilateral breast prostheses. Normal osseous structures. There are surgical clips in the gallbladder fossa consistent with a prior cholecystectomy. Atrophic pancreas. Postsurgical changes of the stomach. CT/CTA Chest W/WO Contrast IMPRESSION: No evidence for PE or aortic dissection at this time. Electronically Signed: Carlos Ames, at 20:57 EST Tel , Service support ,
--- NOTE | 2019-07-19 21:05 | ED.VISSUMM ---
- ER Visit Summary Date of Service: 07/19/19 Chief Complaint: [Chest pain] History of Present Illness: The patient is a 49 F [presents to the emergency department with complaint of chest pain that started about an hour and a half prior to coming in. She describes a pressure in her left chest that at times radiates into her left arm. She complains of nausea with it and some shortness of breath. Patient states that she had just gotten home from work when the discomfort started. Patient was at rest. Patient tells me that she had a heart catheterization within the last 6 months that was normal. Patient tells me she had recent travel and she went on a cruise in May. She has no history of DVT or PE. She denies recent illness or recent cough.] Physical Examination: [HEENT-PERRLA, EOMI. Cranial nerves II through XII grossly intact. TMs clear. Mucous membranes moist. No adenopathy. Cardiovascular-regular rate and rhythm without murmur or ectopy Lungs-clear to auscultation, chest wall stable without crepitus or subcu emphysema Abdomen-normoactive bowel sounds, soft, nontender, no rebound or rigidity, no peritoneal signs. Extremities-intact ?4, normal range of motion, normal pulses, atraumatic] Test Results: [EKG obtained arrival shows sinus tachycardia with a ventricular rate of 101 bpm with a right bundle branch block. When compared with prior EKG from December 2018 the bundle branch block is chronic. Patient did have some subtle flipped T waves in V2 V3 and V4 when compared with prior EKG from December of 2018. CBC with differential obtained was normal. Chemistries unremarkable. Troponin was less than 0.015. D-dimer was 0.99. Chest x-ray showed nothing acute. CTA of the chest was negative for PE or dissection.] Also troponin was obtained at the request of automobile damage field appraiser on-call Dr. Rojo and was less than 0.015. Emergency Department Course and Treatment: [Arrival patient given aspirin and placed on a vehicle monitor technician. Patient was given sublingual nitro which mostly resolved her pain.] Treatment Plan: [I discussed case with cardiology and given that she had recent heart cath with clean coronaries within the last 6 months and unremarkable EKG troponin and delta troponin it was felt the patient is safe for discharge to home. CTA was negative for PE.] Disposition: [Discharged home in stable condition] Impression: [Chest pain-etiology uncertain] This note was generated with 4th aspect dictation software. It may contain incorrect words, spelling, and punctuation that were not noted in review of the chart prior to signing ED Disposition - Plan for ED Patient: Referrals: Louis Hernandez MD [Primary Care Provider] -
--- NOTE | 2019-07-19 22:15 | ED.DEP ---
ED Disposition - Plan for ED Patient: Instructions: CHEST PAIN, Uncertain Cause Referrals: Louis Hernandez MD [Primary Care Provider] - 3-5 Days
== END 2019-07-19 22:36 | disposition home or self-care (01) ==
LOC: ED 18:04
PROVIDERS: Emergency Provider Emergency Medicine; PCP Family Medicine
DX: R07.9 Chest pain, unspecified (principal); I45.10 Unspecified right bundle-branch block; R06.02 Shortness of breath; R11.0 Nausea; I10 Essential (primary) hypertension; Z82.49 Family history of ischemic heart disease and other diseases of the circulatory system
CPT/HCPCS: 71045; 71275; 80048; 84484; 85025; 85379; 93005; 99285; Q9967; A4216

== ENCOUNTER → 2021-01-28 14:25 | Outpatient (CLI) | payer OTHER, SELFPAY ==
[2019-07-19 17:38] VITALS: BMI 33.2
[2021-01-28 17:58] LABS: Absolute Neutrophil Count 4.7 X10^3/uL (2.0-7.7); Basophil# 0.03 X10^3/uL; Basophil% 0.4 % (0-1); Eosinophil# 0.05 X10^3/uL; Eosinophils% 0.7 % (0-5); Hematocrit 39.7 % (37-47); Hemoglobin 12.6 g/dL (12.0-15.0); Lymphocyte % 21.7 % (19-41); Mean Corp Hgb Conc 31.7 g/dL (32-36); Mean Corpuscular Hgb 30.7 pg (27.0-32.0); Mean Corpuscular Volume 96.6 fL (81-99); Mean Platelet Vol. 12.1 fl (6.2-12.0); Monocyte# 0.59 X10^3/uL; Monocyte% 8.5 % (0-10); NRBC Flagged by Analyzer 0 % (0-5); Neutrophil # 4.73 X10^3/uL (2.7-7.7); Neutrophil % 68.4 % (47-70); Platelet Count 169 K/mm3 (150-450); RBC Distribution Width CV 13.2 % (11.6-14.6); RBC Distribution Width SD 46.1 fl (35.1-43.9); Red Blood Count 4.11 M/mm3 (4.2-5.4); White Blood Count 6.9 K/mm3 (4.4-11.0)
[2021-01-28 18:33] LABS: ALB/GLOB Ratio 0.9 RATIO (0.9-2.4); AST(SGOT) 22 U/L (15-37); Alanine Aminotransfer ALT/SGPT 13 U/L (13-56); Albumin, Serum 3.3 g/dL (3.2-5.0); Alkaline Phosphatase 173 U/L (45-117); Anion Gap 4 (5-15); BUN 23 mg/dL (7-18); BUN/Creat Ratio 26.8 RATIO (10-20); Calcium,Total 8.8 mg/dL (8.5-10.1); Chloride 107 mmol/L (98-107); Cholesterol 163 mg/dL (200); Creatinine, Serum 0.86 mg/dL (0.55-1.02); EST Glomerular Filtration Rate 74 mL/min (>60); Est Glom Filt Rate - Afr Amer 90 mL/min (>60); Globulin 3.8 g/dL (2.2-4.2); Glucose 81 mg/dL (74-106); High Density Lipoprotein 102 mg/dL; Potassium 4.1 mmol/L (3.5-5.1); Protein, Total 7.1 g/dL (6.4-8.2); Sodium Level 137 mmol/L (136-145); Thyroid Stim Hormone (TSH) 0.53 uIU/mL (0.358-3.74); Triglycerides 70 mg/dL; Very Low Density Lipoprotein 14 mg/dL (5-40)
== END ==
PROVIDERS: PCP Family Medicine; Referring Provider Family Medicine; Visit Provider Family Medicine
DX: I10 Essential (primary) hypertension (principal); Z13.220 Encounter for screening for lipoid disorders; R53.83 Other fatigue
CPT/HCPCS: 36415; 80053; 80061; 84443; 85025

== ENCOUNTER → 2022-03-02 | Outpatient (CLI) | payer OTHER, SELFPAY ==
[2022-03-02 10:07] LABS: Absolute Lymphocyte Count 1.47 X10^3/uL (0.83-4.51); Absolute Neutrophil Count 3.3 X10^3/uL (2.0-7.7); Basophil# 0.02 X10^3/uL; Basophil% 0.4 % (0-1); Eosinophil# 0.01 X10^3/uL; Eosinophils% 0.2 % (0-5); Hematocrit 36.1 % (37-47); Hemoglobin 11.8 g/dL (12.0-15.0); Lymphocyte # 1.47 X10^3/ul (0.83-4.51); Mean Corp Hgb Conc 32.7 g/dL (32-36); Mean Corpuscular Volume 97.8 fL (81-99); Mean Platelet Vol. 11.1 fl (6.2-12.0); Monocyte% 7.6 % (0-10); NRBC Flagged by Analyzer 0 % (0-5); Neutrophil # 3.33 X10^3/uL (2.7-7.7); Neutrophil % 63.4 % (47-70); Platelet Count 179 K/mm3 (150-450); RBC Distribution Width CV 13.8 % (11.6-14.6); RBC Distribution Width SD 48.8 fl (35.1-43.9); Red Blood Count 3.69 M/mm3 (4.2-5.4); White Blood Count 5.3 K/mm3 (4.4-11.0)
[2022-03-02 11:07] LABS: ALB/GLOB Ratio 0.9 RATIO (0.9-2.4); AST(SGOT) 21 U/L (15-37); Alanine Aminotransfer ALT/SGPT 11 U/L (13-56); Albumin, Serum 3.5 g/dL (3.2-5.0); Alkaline Phosphatase 183 U/L (45-117); Anion Gap 7 (5-15); BUN 13 mg/dL (7-18); BUN/Creat Ratio 15.2 RATIO (10-20); Calcium,Total 9.3 mg/dL (8.5-10.1); Chloride 105 mmol/L (98-107); Creatinine, Serum 0.85 mg/dL (0.55-1.02); EST Glomerular Filtration Rate 74 mL/min (>60); Est Glom Filt Rate - Afr Amer 90 mL/min (>60); Globulin 3.7 g/dL (2.2-4.2); Glucose 96 mg/dL (74-106); Protein, Total 7.2 g/dL (6.4-8.2); Sodium Level 137 mmol/L (136-145)
== END | disposition home or self-care (01) ==
PROVIDERS: PCP Family Medicine; Referring Provider Family Medicine; Visit Provider Family Medicine
DX: I10 Essential (primary) hypertension (principal)
CPT/HCPCS: 36415; 80053; 85025

== ENCOUNTER 2022-05-08 02:03 | Inpatient (IN) | payer OTHER, SELFPAY ==
[2022-05-08] VITALS (12 sets, daily range): BP systolic 121–158; BP diastolic 65–95; PULSE 72–106; RESP 16–25; TEMP 36.6–37.5; O2SAT 92–99; BMI 33.9; BMI 33.8
--- NOTE | 2022-05-08 02:19 | CT_ITS ---
STUDY: CT ABDOMEN AND PELVIS WITH CONTRAST REASON FOR EXAM: Female, 51 years old. abd pain RADIATION DOSAGE (If Supplied By Facility): CTDIvol = ( 15.10 ) mGy, DLP = ( 1314.95 ) mGycm TECHNIQUE: Transaxial images were obtained from the dome of the diaphragm to the symphysis pubis without oral contrast. IV 100mL Isovue-370 was administered. Sagittal and coronal images were reconstructed. Individualized dose optimization techniques were used for this CT. COMPARISON: None. FINDINGS: The visualized lung bases are unremarkable. The visualized portions of the heart are within normal limits. Normal liver. There are surgical clips in the gallbladder fossa consistent with a prior cholecystectomy. Normal spleen. Normal pancreas. Normal bilateral adrenal glands. Normal right kidney. Normal left kidney. There is gastric bypass. 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 There is dilatation of small bowel loops in the jejunum and proximal ileum. There is transition to approximately and consistent with efferent loop small bowel obstruction. There are dilated loops of the small intestine with a non-distended colon consistent with a small bowel obstruction. Normal colon. The appendix is visualized and appears normal. Normal abdominal aorta. Normal inferior vena cava. Normal retroperitoneum. Normal urinary bladder. Normal abdominal wall. Normal osseous structures. CT/Abdomen/Pelvis W IV Cont ONLY IMPRESSION: There is gastric bypass. 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 There is dilatation of small bowel loops in the jejunum and proximal ileum. There is transition to approximately and consistent with efferent loop small bowel obstruction. Electronically Signed: Pooja Patel MD at 3:43 EST ,
[2022-05-08] MEDS: proCHLORPERazine 10 MG/2 ML Vial IV (02:31)
[2022-05-08] MEDS: 0.9% Normal Saline 1,000 ML 999 ML IV ×2 (02:31→05:06)
[2022-05-08] MEDS: Morphine 4 MG/ML Syringe IV (02:31)
[2022-05-08 02:32] LABS: Absolute Lymphocyte Count 0.83 X10^3/uL (0.83-4.51); Absolute Neutrophil Count 13.5 X10^3/uL (2.0-7.7); Basophil# 0.03 X10^3/uL; Basophil% 0.2 % (0-1); Hematocrit 37.1 % (37-47); Hemoglobin 11.8 g/dL (12.0-15.0); Lymphocyte # 0.83 X10^3/ul (0.83-4.51); Lymphocyte % 5.5 % (19-41); Mean Corp Hgb Conc 31.8 g/dL (32-36); Mean Corpuscular Hgb 29.8 pg (27.0-32.0); Mean Corpuscular Volume 93.7 fL (81-99); Mean Platelet Vol. 10.7 fl (6.2-12.0); Monocyte# 0.62 X10^3/uL; Monocyte% 4.1 % (0-10); NRBC Flagged by Analyzer 0 % (0-5); Neutrophil # 13.47 X10^3/uL (2.7-7.7); Neutrophil % 89.9 % (47-70); Platelet Count 213 K/mm3 (150-450); RBC Distribution Width CV 13.9 % (11.6-14.6); RBC Distribution Width SD 47.6 fl (35.1-43.9); Red Blood Count 3.96 M/mm3 (4.2-5.4)
[2022-05-08] MEDS: Dicyclomine 20 MG/2 ML Vial IM (02:32)
--- NOTE | 2022-05-08 02:33 | EDS_ITS ---
HPI History of Present Illness Chief Complaint: Nausea/Vomiting Narrative Narrative: Patient is a 51-year-old male with past medical history of hypertension as well as previous surgical history of gastric bypass and cholecystectomy. She states that starting around 8 PM today she felt like her stomach became bloated/distended and she has had bouts of vomiting and diarrhea. states that she and him went to 2 different places but ate mainly the same food and he is not sick at all. Patient states that she has had Zofran at home that she is taken orally with no symptom improvement. She states she has been no blood or dark discoloration to the emesis or diarrhea but as the symptoms have persisted she presents for evaluation. She also denies any recent antibiotic use travel outside the country or exposure to livestock was secondary to the loose stool [facility] Medical History (Updated 05/08/22 @ 05:[address] Raman Major DO) Chest pain Complete right bundle branch block Essential hypertension Osteoarthritis of knee Palpitations Shortness of breath Home Medications lisinopril 40 mg tablet 40 mg PO DAILY 05/08/22 [History Last Taken Unknown] venlafaxine 37.5 mg tablet 37.5 mg PO BID 05/08/22 [History Last Taken Unknown] Allergy/AdvReac Type Severity Reaction Status Date / Time diazoxide Allergy Hives Verified 05/08/22 02:07 Family History Father Pancreatic cancer CAD (coronary artery disease) Diabetes Mother Multiple myeloma Pulmonary fibrosis Surgical History History of abdominoplasty (2012) History of augmentation of both breasts (2011) history of bilateral brachioplasty History of cholecystectomy History of gastric bypass (2001) Social History (Updated 01/17/19 @ 14:[address] Baudilio Steiner MD) Smoking Status: Never smoker alcohol intake: current alcohol intake frequency: a few times a month Alcohol type: wine substance use type: does not use caffeine: Yes Type: tea Number of servings: 2 ROS ROS ED Constitutional Constitutional ED: Denies chills or fever(s) ENT ENT ED: Denies sore throat Cardiovascular Cardiovascular: Denies chest pain Respiratory/Chest Respiratory/Chest: Denies cough or dyspnea Gastrointestinal Gastrointestinal: Reports abdominal pain, diarrhea, nausea and vomiting Genitourinary Genitourinary ED: Denies dysuria or hematuria Musculoskeletal Musculoskeletal: Reports myalgias Integumentary Denies rash Neurologic Neurologic: Reports headache(s) Hematologic/Lymphatic Hematologic/Lymphatic: Denies easy bleeding or easy bruising EXAM Physical Exam Const Vital Signs: 05/08/22 02:03 05/08/22 06:54 05/08/22 07:47 Temperature 97.8 F 98.0 F Temperature Source Oral Temporal Pulse Rate 79 90 94 Respiratory Rate 25 H 18 16 Blood Pressure 158/93 H 142/85 H 144/95 H Blood Pressure Mean 114 104 111 Pulse Ox 99 95 97 Oxygen Delivery Method Room Air Room Air Room Air Positive well nourished, well developed and obese General Appearance ED: well developed Nutritional Appearance: obese HEENT Reports dry mucous membranes HEENT Narrative: Mucous membranes are slightly dry and tacky without tongue or lip swelling airway edema or compromise or signs of secondary infection Mouth ED: Yes dry mucous membranes Mouth: dry mucous membranes Eyes PERRL and EOMs intact bilaterally General Eye ED: Negative for scleral icterus Neck supple Resp normal respiratory effort and clear to auscultation bilaterally Cardio regular rate and regular rhythm Rate: other Other Details: Radial pulses are plus 2 out of 4 bilaterally are equal and symmetric GI GI Narrative: Abdomen slightly distended with diffuse tenderness on palpation. No voluntary guarding or rigidity. No pulsatile mass or fluid wave. Bowel sounds are hyperactive Auscultation: hyperactive bowel sounds Extremity normal to inspection Neuro oriented x3 and CN's II-XII intact bilaterally Sensorium / Orientation: alert Psych mental status grossly normal Skin no rashes or lesions noted Skin Narrative: Skin turgor is increased General Skin Exam: Negative for jaundice MDM MDM MDM Narrative Medical decision making narrative: Patient presented to the ER afebrile but had a diffusely tender abdomen with d istention. With her multiple abdominal surgeries there is concern that this could be related to a bowel obstruction despite her report of having loose bowel movements this evening. Secondary to this basic labs were obtained and a CT scan with IV contrast was ordered. Labs show leukocytosis at 15 as well as mild elevation to her kidney function and creatinine. Her lipase is greatly elevated at 6500 but the patient does not have jaundice or scleral icterus and her gallbladder has been previously removed. The CT scan did not show any pancreatic inflammation but did show changes consistent with small bowel obstruction. With her history of gastric bypass and now obstructive process the patient will be too complicated to keep at this facility. She follows with the bariatric clinic at [facility] and therefore they will be contacted to discuss possible transfer. Even though the patient has a bowel obstruction as as she has had a previous gastric bypass surgery do not feel it is appropriate to place an NG tube at this time untill cleared by surgery. The case was discussed with Dr. Cohen/bariatric surgery for [facility]. She does recommend an NG tube at this time for decompression and does accept transfer of the patient. Lab Data Attestation: I reviewed the patient's lab results. Labs: Laboratory Results - last 24 hr 05/08/22 05/08/22 05/08/22 02:23 02:23 02:52 WBC 15.0 H RBC 3.96 L Hgb 11.8 L Hct 37.1 MCV 93.7 MCH 29.8 MCHC 31.8 L RDW Std Deviation 47.6 H RDW Coeff of Cassia 13.9 Plt Count 213 MPV 10.7 Immature Gran % (Auto) 0.300 Neut % (Auto) 89.9 H Lymph % (Auto) 5.5 L [place] % (Auto) 4.1 Eos % (Auto) 0.0 Baso % (Auto) 0.2 Absolute Neuts (auto) 13.5 H Absolute Lymphs (auto) 0.83 Nucleated RBC % 0 Sodium 138 Potassium 4.6 Chloride 105 Carbon Dioxide 23.0 Anion Gap 10 BUN 17 Creatinine 1.19 H Estim Creat Clear Calc 59.80 Est GFR (MDRD) Af Amer 61 Est GFR (MDRD) Non-Af 50 L BUN/Creatinine Ratio 14.3 Glucose 161 H Lactic Acid Calcium 9.7 Total Bilirubin 0.30 Direct Bilirubin 0.14 AST 46 H ALT 18 Alkaline Phosphatase 211 H Total Protein 7.6 Albumin 3.6 Globulin 4.0 Lipase 6505 H Urine Test Negative 05/08/22 04:20 WBC RBC Hgb Hct MCV MCH MCHC RDW Std Deviation RDW Coeff of Cassia Plt Count MPV Immature Gran % (Auto) Neut % (Auto) Lymph % (Auto) [place] % (Auto) Eos % (Auto) Baso % (Auto) Absolute Neuts (auto) Absolute Lymphs (auto) Nucleated RBC % Sodium Potassium Chloride Carbon Dioxide Anion Gap BUN Creatinine Estim Creat Clear Calc Est GFR (MDRD) Af Amer Est GFR (MDRD) Non-Af BUN/Creatinine Ratio Glucose Lactic Acid 3.4 H* Calcium Total Bilirubin Direct Bilirubin AST ALT Alkaline Phosphatase Total Protein Albumin Globulin Lipase Urine Test Radiography Diagnostic Testing: Clinical Impression(s) from Imaging Studies Abdomen/Pelvis CT 05/08/22 02:19 IMPRESSION: There is gastric bypass. 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 There is dilatation of small bowel loops in the jejunum and proximal ileum. There is transition to approximately and consistent with efferent loop small bowel obstruction. Electronically Signed: Pooja Patel MD at 3:43 EST Reading Location ID and State: [facility] / [place] Tel , Service support , Discharge Plan Triage Chief Complaint: Nausea/Vomiting ED Provider: Raman Major Dx/Rx/DC Orders Clinical Impression: Small bowel obstruction, Essential hypertension, Nausea & vomiting, Dehydration Prescriptions: No Action venlafaxine 37.5 mg tablet 37.5 mg PO BID Label Comments: TAKE 1 TABLET BY MOUTH TWICE DAILY lisinopril 40 mg tablet 40 mg PO DAILY Primary Care Provider: Concepción Lang Referrals: Louis Hernandez MD [Non-Staff] - Disposition Disposition: Acute Care Hospital Discharge Location: [facility]
[2022-05-08 02:54] LABS: AST(SGOT) 46 U/L (15-37); Alanine Aminotransfer ALT/SGPT 18 U/L (13-56); Albumin, Serum 3.6 g/dL (3.2-5.0); Alkaline Phosphatase 211 U/L (45-117); Anion Gap 10 (5-15); BUN 17 mg/dL (7-18); BUN/Creat Ratio 14.3 RATIO (10-20); Bilirubin, Direct 0.14 mg/dL (0.00-0.30); Calcium,Total 9.7 mg/dL (8.5-10.1); Chloride 105 mmol/L (98-107); Creatinine, Serum 1.19 mg/dL (0.55-1.02); EST Glomerular Filtration Rate 50 mL/min (>60); Est Glom Filt Rate - Afr Amer 61 mL/min (>60); Glucose 161 mg/dL (74-106); Lipase 6505 U/L (73-393); Potassium 4.6 mmol/L (3.5-5.1); Protein, Total 7.6 g/dL (6.4-8.2); Sodium Level 138 mmol/L (136-145)
[2022-05-08 03:00] LABS: Internal QC Validated? YES +Cl - CLEAR BKGD; Pregnancy, Urine Negative Negative
[2022-05-08] MEDS: HYDROmorphone 1 MG/ML Syringe IV ×8 (03:16→22:15)
[2022-05-08 05:00] LABS: Lactic Acid 3.4 mmol/L (0.4-1.9)
[2022-05-08] MEDS: Ondansetron 4 MG/2 ML Vial IV ×2 (07:54→13:08)
[2022-05-08] MEDS: Oxymetazoline 0.05% 1 SPRAY SPRAY.BTL 2 SPRAY NASAL (07:55)
--- NOTE | 2022-05-08 08:11 | ED.RN ---
ONE ATTEMPT FOR NG PLACEMENT THROUGH LEFT NARE. GASTRIC CONTENT NOTED IN TUBE. PT COUGHING AND GAGGING EXCESSIVELY. TUBE NOTED THEN IN PT MOUTH. TUBE RETRACTED. PT REPORTS I CANT DO THIS. TUBE REMOVED COMPLETELY. PT GIVEN WASH CLOTHS AND TISSUE. BLOOD NOTED TO LEFT NARE. DR. JOSEPH INFORMED.
[2022-05-08 08:26] LABS: Reflex Lactate? Y
--- NOTE | 2022-05-08 08:50 | RAD_ITS ---
HISTORY: NG tube -- KUB with both diaphragms for NG/OG Verification. TECHNIQUE: XR Abdomen 1 View. COMPARISON: CT earlier same day. FINDINGS: BOWEL GAS PATTERN: Nasogastric tube tip in the left mid abdomen. Dilated small bowel loops again noted FREE AIR: No gross subdiaphragmatic free air. RAD/Abdomen Single View (Portable) IMPRESSION: Nasogastric tube tip in the left mid abdomen, likely within the jejunum in a gastric bypass patient. Persistent small bowel obstruction. Electronically Signed: Gloria Pérez MD at 9:07 EST ,
[2022-05-08] MEDS: Lidocaine Jelly 2% 20 ML Syringe (URO-JET) 1 APPLIC TOPICAL (09:17)
--- NOTE | 2022-05-08 09:37 | NURSING ---
CALLED [facility], TALKED TO DARIAN IN TRANSFER LINE. NO BED YET AND DISCHARGE DEPENDENT ON ONE FOR PATIENT
[2022-05-08 11:54] LABS: Reflex Lactate? Y
--- NOTE | 2022-05-08 14:08 | HP.PCM.HOS_ITS ---
HPI - General General Date of Admission: 05/08/22 Date of Service: 05/08/22 Chief Complaint: abdominal pain HPI Narrative GENO MALIK, is a 51 F with a PMH with a PMH as outlined which includes a history of gastric bypass who presents via the ED with a complaint of abdominal pain, nausea and vomiting. Symptoms started at ~ 8pm o evening of admission, and she felt like her abdomen was bloated. She had eaten similar food with her but he hadnt fallen ill. She tried taking Zofran at home with no improvement. She denied any fever or chills, any chest pain or shortness of breath or any other symptoms. Review of systems otherwise negative. Vitals in the ED with a blood pressure of 141/79, pulse rate of 98 and respiratory rate of 16. She was saturating 96% on room air. CBC showed hemoglobin of 11.8 with WBC of 15 and platelets of 213. BMP was unremarkable lactic acid was 3. Lipase was elevated at 6505. CT of the abdomen and pelvis showed marked gastric distention consistent with afferent loop obstruction and dilation of small bowel loops in the jejunum and proximal ileum with transition to approximately and consistent with efferent loop small bowel obstruction. Pancreas was reported as normal. Patient was initially to be transferred to the [facility] and ED doctor discussed with [facility] surgeon about inserting an NG tube. Patient has been admitted pending transfer to [facility] when she gets a bed. [facility] Medical History (Updated 05/08/22 @ 05:[address] Raman Major, ) Chest pain Complete right bundle branch block Essential hypertension Osteoarthritis of knee Palpitations Shortness of breath Home Medications lisinopril 40 mg tablet 40 mg PO DAILY 05/08/22 [History Last Taken Unknown] venlafaxine 37.5 mg tablet 37.5 mg PO BID 05/08/22 [History Last Taken Unknown] Allergy/AdvReac Type Severity Reaction Status Date / Time diazoxide Allergy Hives Verified 05/08/22 02:07 Family History Father Pancreatic cancer CAD (coronary artery disease) Diabetes Mother Multiple myeloma Pulmonary fibrosis Surgical History History of abdominoplasty (2012) History of augmentation of both breasts (2011) history of bilateral brachioplasty History of cholecystectomy History of gastric bypass (2001) Social History (Updated 01/17/19 @ 14:[address] Baudilio Steiner MD) Smoking Status: Never smoker alcohol intake: current alcohol intake frequency: a few times a month Alcohol type: wine substance use type: does not use caffeine: Yes Type: tea Number of servings: 2 ROS Constitutional Constitutional: Reports malaise and weakness; Denies chills, fatigue or fever(s) Eyes Eyes: Denies change in vision ENT HEENT: Denies dysphagia, headache(s) or sore throat Cardiovascular Cardiovascular: Denies chest pain, dyspnea on exertion, edema, lightheadedness, orthopnea, palpitations, rapid heart rate or syncope Respiratory/Chest Respiratory/Chest: Denies cough, productive cough, shortness of breath at rest or shortness of breath with exertion Gastrointestinal Gastrointestinal: Reports abdominal pain, nausea and vomiting; Denies coffee ground emesis, constipation, diarrhea, dyspepsia, hematemesis or hematochezia Genitourinary Genitourinary: Denies dysuria Musculoskeletal Musculoskeletal: Denies arthralgias Neurologic Neurologic: Denies confusion, dizziness, focal weakness or headache(s) Psychiatric Psychiatric: Denies anxiety Hematologic/Lymphatic Hematologic/Lymphatic: Denies anemia Vital Signs Vital Signs Vital Signs: 05/08/22 02:03 05/08/22 06:54 05/08/22 07:47 Temperature 97.8 F 98.0 F Temperature Source Oral Temporal Pulse Rate 79 90 94 Respiratory Rate 25 H 18 16 Blood Pressure 158/93 H 142/85 H 144/95 H Blood Pressure Mean 114 104 111 Pulse Ox 99 95 97 Oxygen Delivery Method Room Air Room Air Room Air 05/08/22 09:18 05/08/22 09:34 05/08/22 10:57 Temperature Temperature Source Pulse Rate 96 98 Respiratory Rate 16 18 16 Blood Pressure 124/78 H 141/79 H Blood Pressure Mean 93 99 Pulse Ox 95 96 Oxygen Delivery Method Room Air Room Air 05/08/22 12:22 Temperature Temperature Source Pulse Rate Respiratory Rate 16 Blood Pressure Blood Pressure Mean Pulse Ox Oxygen Delivery Method Weight Weight: 236 lb 5.369 oz Body Mass Index (BMI) 33.9 Physical Exam Const alert, oriented x3 and no apparent distress General Appearance: cooperative HEENT normocephalic, head/scalp atraumatic, hearing grossly normal bilaterally and moist oral mucous membranes Mouth: oral and palatal mucosa normal Neck no lymphadenopathy Resp normal respiratory effort, no retractions, no use of accessory muscles and clear to auscultation bilaterally Cardio regular rate, regular rhythm, S1 normal heart sound, S2 normal heart sound and no murmurs GI GI Narrative: abdomen soft, generalised tenderness, no guarding or rebound tenderness. Few bowel sounds. Extremity normal to inspection, full ROM and no clubbing, cyanosis or edema Neuro oriented x3, CN's II-XII intact bilaterally, moves all extremities and no focal motor deficits Sensorium / Orientation: awake Motor Exam: strength 5/5 throughout Psych affect normal Results Lab / Micro Data Result Diagrams: 05/09/22 06:30 05/09/22 06:30 Labs: Laboratory Results - last 24 hr 05/08/22 02:23: WBC 15.0 H, RBC 3.96 L, Hgb 11.8 L, Hct 37.1, MCV 93.7, MCH 29.8, MCHC 31.8 L, RDW Std Deviation 47.6 H, RDW Coeff of Cassia 13.9, Plt Count 213, MPV 10.7, Immature Gran % (Auto) 0.300, Neut % (Auto) 89.9 H, Lymph % (Auto) 5.5 L, Leon % (Auto) 4.1, Eos % (Auto) 0.0, Baso % (Auto) 0.2, Absolute Neuts (auto) 13.5 H, Absolute Lymphs (auto) 0.83, Nucleated RBC % 0 05/08/22 02:23: Sodium 138, Potassium 4.6, Chloride 105, Carbon Dioxide 23.0, Anion Gap 10, BUN 17, Creatinine 1.19 H, Estim Creat Clear Calc 59.80, Est GFR (MDRD) Af Amer 61, Est GFR (MDRD) Non-Af 50 L, BUN/Creatinine Ratio 14.3, Glucose 161 H, Calcium 9.7, Total Bilirubin 0.30, Direct Bilirubin 0.14, AST 46 H, ALT 18, Alkaline Phosphatase 211 H, Total Protein 7.6, Albumin 3.6, Globulin 4.0, Lipase 6505 H 05/08/22 02:52: Urine Test Negative 05/08/22 04:20: Lactic Acid 3.4 H* 05/08/22 07:54: Lactic Acid 3.0 H* Micro: Microbiology 05/08/22 04:28 Nasal Secretion SARS-CoV-2 & FLU Antigen (Rapid) - Final Radiology Impression Abdomen/Pelvis CT 05/08/22 02:19 IMPRESSION: There is gastric bypass. 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 There is dilatation of small bowel loops in the jejunum and proximal ileum. There is transition to approximately and consistent with efferent loop small bowel obstruction. Electronically Signed: Pooja Patel MD at 3:43 EST , KUB X-Ray 05/08/22 08:50 IMPRESSION: Nasogastric tube tip in the left mid abdomen, likely within the jejunum in a gastric bypass patient. Persistent small bowel obstruction. Electronically Signed: Gloria Pérez MD at 9:07 EST , Assessment & Plan Assessment/Plan (1) Small bowel obstruction: PLAN: Plan #Small bowel obstruction * has history of gastric bypass and cholecystectomy * CT abdomena dn pelvis showed There is gastric bypass. 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 There is dilata tion of small bowel loops in the jejunum and proximal ileum. There is transition to approximately and consistent with efferent loop small bowel obstruction. There are dilated loops of the small intestine with a non- distended colon consistent with a small bowel obstruction.? Normal colon.? The appendix is visualized and appears normal. * due to be transferred to [facility]; being admitted to medical floor pending bed at [facility] * keep NPO * hydrate with IVF D5 NS * consult general surgery * IV dilaudid for pain * patient says she is passing gas and has had 2 small bowel movements today. * #Acute pancreatitis * Patient complains of severe abdominal pain at lipase also elevated at approximately 6500. Pancreas on CT did look normal but she meets criteria for acute pancreatitis in light of elevated lipase and abdominal pain * Keep NPO. Hydrate with IV fluids. IV Dilaudid as needed for pain * #Lactic acidosis: * Lactic acid was 3.4 on admission and trended down to 3 with hydration.. * Likely due to dehydration from nausea and vomiting. * Hydrate gently with fluids and monitor. * #Hypertension: on lisinopril DVT prophylaxis: lovenox CODE STATUS: Full code * Patient counseled extensively about different types of CODE STATUS including full code, DNR CCA and DNR CCA. Patient elects to be full code. * Total [id number] time 17 minutes. Charges/Coding Visit Charges Inpatient E&M: 77790 Init Hosp L3 Procedures Hospitalists Procedures: 73044 Advncd Care Plan 30 Min
[2022-05-08] MEDS: Dextrose 5%/0.9% NaCl 1,000 ML 75 ML IV (15:54)
[2022-05-08] MEDS: 0.9% Saline Lock 10 ML Syringe IV ×2 (18:53→22:15)
[2022-05-09] MEDS: 0.9% Saline Lock 10 ML Syringe IV ×2 (01:18→06:08)
[2022-05-09] MEDS: HYDROmorphone 1 MG/ML Syringe IV ×2 (01:18→06:08)
[2022-05-09] MEDS: Dextrose 5%/0.9% NaCl 1,000 ML 75 ML IV (01:23)
[2022-05-09 02:00] VITALS: BP 131/74; PULSE 92; RESP 18; TEMP 36.8; O2SAT 95
--- NOTE | 2022-05-09 03:20 | NURSING ---
[facility] called to make this RN aware of pt being accepted. Pt's bed assignment is H51 Bed [address] Dr[address] Marie made aware of transfer tonight. Pt signed consent for transport. [facility] contacted and provided ETA 0630. Radiology notified and disc requested. Per radiology, they are able to electronically send images to [facility]. Pt and primary RN updated on plan.
--- NOTE | 2022-05-09 04:19 | NURSING ---
report called to KEHINDE Hall at [facility] at this time. notified of transport pickup time of 629
[2022-05-09 06:00] VITALS: BP 142/87; PULSE 95; RESP 18; TEMP 37.3; O2SAT 94
[2022-05-09 07:17] LABS: Absolute Lymphocyte Count 1.53 X10^3/uL (0.83-4.51); Absolute Neutrophil Count 7.8 X10^3/uL (2.0-7.7); Basophil# 0.02 X10^3/uL; Basophil% 0.2 % (0-1); Eosinophil# 0.03 X10^3/uL; Eosinophils% 0.3 % (0-5); Hematocrit 29.3 % (37-47); Hemoglobin 9.4 g/dL (12.0-15.0); Lymphocyte # 1.53 X10^3/ul (0.83-4.51); Lymphocyte % 15.1 % (19-41); Mean Corp Hgb Conc 32.1 g/dL (32-36); Mean Corpuscular Hgb 30.2 pg (27.0-32.0); Mean Corpuscular Volume 94.2 fL (81-99); Mean Platelet Vol. 10.7 fl (6.2-12.0); Monocyte# 0.75 X10^3/uL; Monocyte% 7.4 % (0-10); NRBC Flagged by Analyzer 0 % (0-5); Neutrophil # 7.75 X10^3/uL (2.7-7.7); Neutrophil % 76.3 % (47-70); Platelet Count 153 K/mm3 (150-450); RBC Distribution Width CV 14.5 % (11.6-14.6); RBC Distribution Width SD 49.3 fl (35.1-43.9); Red Blood Count 3.11 M/mm3 (4.2-5.4); White Blood Count 10.2 K/mm3 (4.4-11.0)
--- NOTE | 2022-05-09 08:04 | DS.PCM_ITS ---
Providers Date of Admission: 05/08/22 Date of Discharge: 05/09/22 Primary Care Physician: Dr. Concepción Lang, DO Consultations 05/08/22 15:55 Consult: General Surgery Routine Consulting Provider: Baudilio Dickson Reason for Consult: small bowel obstruction EMERGENT Consult: No MD Notified: Yes Date Notified: 05/08/22 Time Notified: 15:55 Method of Notification: Text Reason For Visit: SMALL BOWEL OBSTRUCTION Diagnosis Discharge Diagnosis (1) Small bowel obstruction: Status: Acute Code(s): K56.609 - Unspecified intestinal obstruction, unspecified as to partial versus complete obstruction Plan #Small bowel obstruction * has history of gastric bypass and cholecystectomy * CT abdomena dn pelvis showed There is gastric bypass. There is markedly ga stric distention consistent with afferent loop obstruction. There is dilatation of small bowel loops in the jejunum and proximal ileum. There is transition to approximately and consistent with efferent loop small bowel obstruction. There are dilated loops of the small intestine with a non- distended colon consistent with a small bowel obstruction.? Normal colon.? The appendix is visualized and appears normal. * due to be transferred to [facility]; being admitted to medical floor pending bed at [facility] * keep NPO * hydrate with IVF D5 NS * consult general surgery * IV dilaudid for pain * patient says she is passing gas and has had 2 small bowel movements today. * #Acute pancreatitis * Patient complains of severe abdominal pain at lipase also elevated at approximately 6500. Pancreas on CT did look normal but she meets criteria for acute pancreatitis in light of elevated lipase and abdominal pain * Keep NPO. Hydrate with IV fluids. IV Dilaudid as needed for pain * #Lactic acidosis: * Lactic acid was 3.4 on admission and trended down to 3 with hydration.. * Likely due to dehydration from nausea and vomiting. * Hydrate gently with fluids and monitor. * #Hypertension: on lisinopril DVT prophylaxis: lovenox Medications at Discharge Home Medications lisinopril 40 mg tablet 40 mg PO DAILY 05/08/22 venlafaxine 37.5 mg tablet 37.5 mg PO BID 05/08/22 Hospital Course Operations None Procedures None Summary of Care Provided Minutes Spent on Discharge: 33 Hospital Course: GENO MALIK, is a 51 F with a PMH with a PMH as outlined which includes a history of gastric bypass who presents via the ED with a complaint of abdominal pain, nausea and vomiting. Symptoms started at ~ 8pm o evening of admission, and she felt like her abdomen was bloated. She had eaten similar food with her but he hadnt fallen ill.? She tried taking Zofran at home with no improvement.? She denied any fever or chills, any chest pain or shortness of breath or any other symptoms.? Review of systems otherwise negative. Vitals in the ED with a blood pressure of 141/79, pulse rate of 98 and respiratory rate of 16.? She was saturating 96% on room air.? CBC showed hemoglobin of 11.8 with WBC of 15 and platelets of 213.? BMP was unremarkable lactic acid was 3.? Lipase was elevated at 6505.? CT of the abdomen and pelvis showed marked gastric distention consistent with afferent loop obstruction and dilation of small bowel loops in the jejunum and proximal ileum with transition to approximately and consistent with efferent loop small bowel obstruction.? Pancreas was reported as normal.? Patient was initially to be transferred to the [facility] and ED doctor discussed with [facility] surgeon about inserting an NG tube.? Patient was admitted pending transfer to [facility] when she gets a bed. General surgery was consulted. She got a bed at [facility] on 05/09/2022 and was discharged to [facility] on 05/09/2022 @ ~ 6:43am. Patient left before this hospitalist could see and evaluate her on 05/09/2022 Physical Exam Narrative Not examined as she was transferred to [facility] before she could be examined. Weight / BMI Weight Weight: 236 lb 5.369 oz Body Mass Index (BMI) 33.8 ABG / Lab / Microbiology Data Result Diagrams: 05/09/22 06:30 05/08/22 02:23 Laboratory: Laboratory Results - last 24 hr 05/08/22 07:54: Lactic Acid 3.0 H* 05/09/22 06:30: WBC 10.2, RBC 3.11 L, Hgb 9.4 L, Hct 29.3 L, MCV 94.2, MCH 30.2, MCHC 32.1, RDW Std Deviation 49.3 H, RDW Coeff of Cassia 14.5, Plt Count 153, MPV 10.7, Immature Gran % (Auto) 0.700, Neut % (Auto) 76.3 H, Lymph % (Auto) 15.1 L, [place] % (Auto) 7.4, Eos % (Auto) 0.3, Baso % (Auto) 0.2, Absolute Neuts (auto) 7.8 H, Absolute Lymphs (auto) 1.53, Nucleated RBC % 0 Microbiology: Microbiology 05/08/22 04:28 Nasal Secretion SARS-CoV-2 & FLU Antigen (Rapid) - Final Radiography Diagnostic Testing: Radiology Impression KUB X-Ray 05/08/22 08:50 IMPRESSION: Nasogastric tube tip in the left mid abdomen, likely within the jejunum in a gastric bypass patient. Persistent small bowel obstruction. Electronically Signed: Gloria Pérez MD at 9:07 EST Reading Location ID and State: [facility] / [place] Tel , Service support , Meaningful Use Info Meaningful Use Diagnoses (Choose all that apply): None applicable Discharge Plan Admission Admit Date/Time: 05/08/22 14:37 Primary Reason for Your Visit: small bowel obstruction Attending Provider: Yamileth Dia Primary Care Provider: Concepción Lang Consulting Providers: Baudilio Dickson Discharge Orders/Prescriptions Prescriptions: No Action venlafaxine 37.5 mg tablet 37.5 mg PO BID Label Comments: TAKE 1 TABLET BY MOUTH TWICE DAILY lisinopril 40 mg tablet 40 mg PO DAILY Referrals / Follow Up: Concepción Lang DO [Primary Care Provider] - Louis Hernandez MD [Non-Staff] - Disposition Disposition (needs filled in before D/C Order can be placed): Acute Care Hospital Charges/Coding Visit Charges Inpatient E&M: 03305 Disch Hosp
[2022-05-09 08:16] LABS: Anion Gap 4 (5-15); BUN 14 mg/dL (7-18); BUN/Creat Ratio 20.3 RATIO (10-20); Calcium,Total 8.1 mg/dL (8.5-10.1); Chloride 108 mmol/L (98-107); Creatinine, Serum 0.69 mg/dL (0.55-1.02); EST Glomerular Filtration Rate 95 mL/min (>60); Est Glom Filt Rate - Afr Amer 115 mL/min (>60); Estimated Creatinine Clearance 103.14 ml/min; Glucose 103 mg/dL (74-106); Potassium 3.9 mmol/L (3.5-5.1); Sodium Level 138 mmol/L (136-145)
== END 2022-05-09 06:50 | disposition short-term general hospital (02) | DRG 388 ==
LOC: ED 07:30 → MS3 15:10
PROVIDERS: Admitting Provider Student in an Organized Health Care Education/Training Program; Emergency Provider Emergency Medicine; PCP Family Medicine; Visit Provider Student in an Organized Health Care Education/Training Program
DX: K56.609 Unspecified intestinal obstruction, unspecified as to partial versus complete obstruction (principal); K85.90 Acute pancreatitis without necrosis or infection, unspecified; E86.0 Dehydration; I10 Essential (primary) hypertension; E66.9 Obesity, unspecified; Z68.33 Body mass index [BMI] 33.0-33.9, adult; Z20.822 Contact with and (suspected) exposure to COVID-19; Z79.899 Other long term (current) drug therapy; Z98.84 Bariatric surgery status; Z90.49 Acquired absence of other specified parts of digestive tract
CPT/HCPCS: 36415; 74018; 74177; 80048; 80076; 81025; 83605; 83690; 85025; 87428; 99285; J7030; Q9967; A4216; J2405

== ENCOUNTER → 2024-03-31 | Outpatient (CLI) | payer OTHER, SELFPAY ==
--- NOTE | 2024-03-31 08:30 | BI_ITS ---
MAMMOGRAPHY - BILATERAL SCREENING REASON FOR EXAM: Female, 53 years old. Routine annual screening examination. PERTINENT HISTORY: Non-contributory. Bilateral breast implants. TECHNIQUE: Digital bilateral breast noah (3D mammographic acquisition) in the CC and MLO projections. 2-D mediolateral oblique (MLO) and craniocaudad (CC) views of both breasts were obtained. CAD: Full Field Digital Mammography with Computer Added Detection was performed. COMPARISON: Comparison is made with prior study of July 18, 2019 and January 13, 2018. FINDINGS: Breast Composition: There are scattered areas of fibroglandular density. There are no dominant masses or suspicious calcifications. Stable appearance of the bilateral breast implants. No other significant abnormalities are identified. There has been no significant change since the prior study. BI/SCRN MAMM (CAD)W/NOAH BILAT IMPRESSION: Stable bilateral screening mammogram. Yearly follow-up mammogram recommended. (A) ASSESSMENT CATEGORY: BIRADS Category 2: Benign. A letter regarding these results will be sent to the patient by the facility within 30 days. Approximately 10% of breast cancers are not detected by mammography. A normal mammogram should not delay biopsy of a clinically suspicious abnormality. [id number] Electronically Signed: Walt Gonsales MD at 8:48 EDT ,
== END | disposition home or self-care (01) ==
LOC: OPBI 08:29 → LAB 09:04
PROVIDERS: PCP Family Medicine; Referring Provider Family Medicine; Visit Provider Family Medicine
DX: Z12.31 Encounter for screening mammogram for malignant neoplasm of breast (principal)
CPT/HCPCS: 77063; 77067

== ENCOUNTER → 2024-04-18 | Outpatient (CLI) | payer OTHER, SELFPAY ==
[2024-04-18 09:42] LABS: Absolute Lymphocyte Count 1.55 X10^3/uL (0.83-4.51); Absolute Neutrophil Count 4.4 X10^3/uL (2.0-7.7); Basophil# 0.01 X10^3/uL; Basophil% 0.2 % (0-1); Eosinophil# 0.08 X10^3/uL; Eosinophils% 1.2 % (0-5); Hematocrit 35.2 % (37-47); Hemoglobin 11.2 g/dL (12.0-15.0); Lymphocyte # 1.55 X10^3/ul (0.83-4.51); Lymphocyte % 23.8 % (19-41); Mean Corp Hgb Conc 31.8 g/dL (32-36); Mean Corpuscular Hgb 29.2 pg (27.0-32.0); Mean Corpuscular Volume 91.9 fL (81-99); Mean Platelet Vol. 10.2 fl (6.2-12.0); Monocyte# 0.48 X10^3/uL; Monocyte% 7.4 % (0-10); Neutrophil # 4.36 X10^3/uL (2.7-7.7); Neutrophil % 67.1 % (47-70); Platelet Count 173 K/mm3 (150-450); RBC Distribution Width CV 16.5 % (11.6-14.6); RBC Distribution Width SD 55.4 fl (35.1-43.9); Red Blood Count 3.83 M/mm3 (4.2-5.4); White Blood Count 6.5 K/mm3 (4.4-11.0)
[2024-04-18 09:43] LABS: NRBC Flagged by Analyzer 0 % (0-5)
[2024-04-18 10:29] LABS: ALB/GLOB Ratio 0.9 RATIO (0.9-2.4); AST(SGOT) 26 U/L (15-37); Alanine Aminotransfer ALT/SGPT 11 U/L (13-56); Albumin, Serum 3.1 g/dL (3.2-5.0); Alkaline Phosphatase 179 U/L (45-117); Anion Gap 6 (5-15); BUN 13 mg/dL (7-18); BUN/Creat Ratio 14.7 RATIO (10-20); Calcium,Total 8.9 mg/dL (8.5-10.1); Chloride 108 mmol/L (98-107); Cholesterol 121 mg/dL (200); Creatinine, Serum 0.89 mg/dL (0.55-1.02); EST Glomerular Filtration Rate 70 mL/min (>60); Est Glom Filt Rate - Afr Amer 85 mL/min (>60); Ferritin 33 ng/mL (8-252); Globulin 3.6 g/dL (2.2-4.2); Glucose 88 mg/dL (74-106); High Density Lipoprotein 83 mg/dL; Iron 60 ug/dL (50-170); Iron Binding Capacity,Total 262 ug/dL (250-450); PERCENT IRON SATURATION 22.9 % (15.0-55.0); Potassium 4.4 mmol/L (3.5-5.1); Protein, Total 6.7 g/dL (6.4-8.2); Sodium Level 141 mmol/L (136-145); Triglycerides 54 mg/dL; Very Low Density Lipoprotein 11 mg/dL (5-40)
[2024-04-18 10:45] LABS: Vitamin B12 760 pg/mL (211-911)
== END | disposition home or self-care (01) ==
LOC: PAVLAB 09:18
PROVIDERS: PCP Family Medicine; Referring Provider Family Medicine; Visit Provider Family Medicine
DX: D50.9 Iron deficiency anemia, unspecified (principal); I10 Essential (primary) hypertension; Z13.220 Encounter for screening for lipoid disorders; E53.8 Deficiency of other specified B group vitamins
CPT/HCPCS: 36415; 80053; 80061; 82607; 82728; 83540; 83550; 85025

== ENCOUNTER → 2024-10-13 | Outpatient (CLI) | payer OTHER, SELFPAY ==
[2024-10-13 11:58] LABS: Absolute Lymphocyte Count 1.34 X10^3/uL (0.83-4.51); Absolute Neutrophil Count 6.7 X10^3/uL (2.0-7.7); Basophil# 0.03 X10^3/uL; Basophil% 0.3 % (0-1); Eosinophil# 0.02 X10^3/uL; Eosinophils% 0.2 % (0-5); Hematocrit 38.6 % (37-47); Hemoglobin 12.7 g/dL (12.0-15.0); Lymphocyte # 1.34 X10^3/ul (0.83-4.51); Lymphocyte % 15.5 % (19-41); Mean Corp Hgb Conc 32.9 g/dL (32-36); Mean Corpuscular Hgb 30.7 pg (27.0-32.0); Mean Corpuscular Volume 93.2 fL (81-99); Mean Platelet Vol. 11.7 fl (6.2-12.0); Monocyte# 0.61 X10^3/uL; NRBC Flagged by Analyzer 0 % (0-5); Neutrophil # 6.65 X10^3/uL (2.7-7.7); Neutrophil % 76.8 % (47-70); Platelet Count 152 K/mm3 (150-450); RBC Distribution Width CV 14.4 % (11.6-14.6); RBC Distribution Width SD 49.3 fl (35.1-43.9); Red Blood Count 4.14 M/mm3 (4.2-5.4); White Blood Count 8.7 K/mm3 (4.4-11.0)
[2024-10-13 12:25] LABS: ALB/GLOB Ratio 1.3 RATIO (0.9-2.4); AST(SGOT) 24 U/L (<=31); Alanine Aminotransfer ALT/SGPT 7 U/L (<=34); Alkaline Phosphatase 155 U/L (35-104); Anion Gap 10 (5-15); BUN 8 mg/dL (4-19); BUN/Creat Ratio 10.7 RATIO (10-20); Calcium,Total 9.5 mg/dL (7.6-11.0); Carbon Dioxide 25.3 mmol/L (21.0-32.0); Chloride 99 mmol/L (98-108); Creatinine, Serum 0.77 mg/dL (0.70-1.20); EST Glomerular Filtration Rate 91 (>60); Glucose 92 mg/dL (70-99); Iron 70 ug/dL (50-170); Iron Binding Capacity,Total 255 ug/dL (250-450); Iron Binding Capacity,Unsat 185 ug/dL (228-428); Potassium 4.4 mmol/L (3.3-5.1); Sodium Level 135 mmol/L (133-145); Total Bilirubin 0.29 mg/dL (0.00-1.30)
== END | disposition home or self-care (01) ==
LOC: MTLAB 09:13
PROVIDERS: PCP Family Medicine; Referring Provider Family Medicine; Visit Provider Family Medicine
DX: D50.8 Other iron deficiency anemias (principal); I10 Essential (primary) hypertension
CPT/HCPCS: 36415; 80053; 83540; 83550; 85025

== ENCOUNTER → 2025-04-13 | Outpatient (CLI) | payer OTHER, SELFPAY ==
[2025-04-13 12:25] LABS: Hematocrit 34.9 % (37-47); Hemoglobin 11.2 g/dL (12.0-15.0); Immature Granulocytes Count 0.010 X10^3/uL (0.0-0.0); Mean Corp Hgb Conc 32.1 g/dL (32-36); Mean Corpuscular Volume 92.1 fL (81-99); Mean Platelet Vol. 11.6 fl (6.2-12.0); NRBC Flagged by Analyzer 0 % (0-5); Platelet Count 164 K/mm3 (150-450); RBC Distribution Width CV 16.2 % (11.6-14.6); RBC Distribution Width SD 55.0 fl (35.1-43.9); Red Blood Count 3.79 M/mm3 (4.2-5.4); White Blood Count 5.2 K/mm3 (4.4-11.0)
[2025-04-13 13:16] LABS: AST(SGOT) 31 U/L (<=31); Alanine Aminotransfer ALT/SGPT 11 U/L (<=34); Albumin, Serum 3.8 g/dL (3.5-5.0); Alkaline Phosphatase 134 U/L (35-104); Anion Gap 8 (5-15); BUN 13 mg/dL (4-19); BUN/Creat Ratio 14.1 RATIO (10-20); Bilirubin, Direct 0.12 mg/dL (0.00-0.30); Calcium,Total 9.3 mg/dL (7.6-11.0); Carbon Dioxide 25.5 mmol/L (21.0-32.0); Chloride 106 mmol/L (98-108); Globulin 3.0 g/dL (2.2-4.2); Glucose 85 mg/dL (70-99); Potassium 4.9 mmol/L (3.3-5.1); Vitamin B12 557 pg/mL (180-914)
[2025-04-13 13:20] LABS: CRP 5.68 mg/L (0.0-3.0); Uric Acid 5.2 mg/dL (2.6-6.0)
[2025-04-16 09:08] LABS: ANTINUCLEAR ANTIBODIES DIRECT Negative (Negative)
[2025-04-20 16:08] LABS: Vitamin B1, Thiamine 81.9 nmol/L (66.5-200.0)
== END | disposition home or self-care (01) ==
LOC: MTLAB 09:33
PROVIDERS: PCP Family Medicine; Referring Provider Podiatrist; Visit Provider Podiatrist
DX: Z51.81 Encounter for therapeutic drug level monitoring (principal)
CPT/HCPCS: 36415; 80053; 82248; 82607; 83036; 84425; 84550; 85025; 85652; 86038; 86140; 86431